=== PATIENT | male | born 1985 | race Caucasian/White ===

== ENCOUNTER 2018-04-14 03:08 | Inpatient (IN) | payer MEDICAID, SELFPAY ==
[2018-04-14] VITALS (28 sets, daily range): BP systolic 91–167; BP diastolic 47–92; PULSE 25–132; RESP 16–99; TEMP 35.9–37.4; O2SAT 95–100; BMI 22.3; BMI 23.3
--- NOTE | 2018-04-14 03:16 | EKG12_ITS ---
Test Reason : NAUSEA Blood Pressure : / mmHG Vent. Rate : 124 BPM Atrial Rate : 124 BPM P-R Int : 162 ms QRS Dur : 080 ms QT Int : 308 ms P-R-T Axes : 063 072 065 degrees QTc Int : 442 ms Sinus tachycardia Otherwise normal ECG Confirmed by PATRICE WALL, BELEN ([id number]), deputy editor in chief CLAIRE JEROME ([id number] on 04/19/2018 3:38:55 PM Referred By: BB Confirmed By:BELEN IBRAHIM MD
--- NOTE | 2018-04-14 03:17 | RAD_ITS ---
STUDY: X-RAY CHEST REASON FOR EXAM: Male, 32 years old. Nausea and vomiting with SOB TECHNIQUE: Single frontal view of the chest. COMPARISON: None. FINDINGS: The lungs are clear and expanded. There is no demonstrated pleural abnormality. Normal size heart. Normal mediastinum and geena. Normal visualized pulmonary arteries. Normal visualized aortic arch and descending thoracic aorta. Normal visualized thoracic spine. Normal visualized ribs, clavicles, and shoulders. There is no demonstrated abnormality of the visualized soft tissue structures of the upper abdomen. RAD/Chest 1 View (Portable) IMPRESSION: Normal x-ray examination of the chest. Electronically Signed: Ashish Aguillon MD at 4:14 EDT Tel , Service support ,
--- NOTE | 2018-04-14 03:19 | ED.VIS.GEN ---
History of Present Illness Chief Complaint: Nausea/Vomiting Informant: Patient Onset: Yesterday Context: Gradual Onset Timing: Continuous Narrative: Patient was feeling malaised yesterday, came home from work and slept all day, has not eaten anything the majority of the day. Started feeling nauseated and then vomiting, followed by gradual onset of bilateral abdominal discomfort going up into his lower central chest, shortness of breath, malaise, polydipsia but not polyuria. He is a type I diabetic has not checked his sugar in about a day. - Past Medical History (1) Diabetes mellitus type 1 Status: Chronic Past Medical History - Allergies and Home Meds Allergies/Adverse Reactions: Allergies Penicillins Adverse Reaction (Verified 04/14/18 03:15) Hives Primary Care Physician: Care Physician,No Primary [Primary Care Provider] - Surgical History: - - Testicle, eyes Review of Systems General: Reports: Chills, Malaise. Denies: Fever Eyes: Denies: Visual changes - bilaterally, Diplopia ENT: Denies: Bilateral ear pain, Sore throat Cardiovascular: Reports: Chest pain. Denies: Palpitations, Heart racing Respiratory: Reports: Dyspnea. Denies: Cough, Sputum, Orthopnea Gastrointestinal: Reports: Abdominal pain, Nausea, Vomiting. Denies: Diarrhea, Constipation, Melena, Hematochezia Genitourinary: Denies: Dysuria, Hematuria, Frequency Musculoskeletal: Denies: Myalgias, Neck pain, Back pain, Swelling, Extremity Pain Skin: Denies: Rash, Abscess Neurological: Denies: Headache, Weakness, Numbness Endocrine: Reports: Polydipsia. Denies: Polyuria, Heat intolerance, Cold intolerance Hematologic: Denies: Easy bruising, Easy bleeding Allergy: Denies: Swelling of the mouth, Swelling of the tongue Physical Exam Vital Signs/Narrative: Vital Signs Temp Pulse Resp BP Pulse Ox 04/14/18 03:09 96.6 F L 130 H 26 H 140/92 H 97 Inital Vital Signs reviewed: Yes General: Well nourished, Well developed, - - uncomfortable, tachypneic, nad Head: Normocephalic, Atraumatic Eyes: Perrl, EOMI ENT: No rhinorrhea, Dry mucous membranes. Negative for: Nasal congestion Neck: Supple, Nontender, No JVD Cardiovascular: Regular rate, Regular rhythm, No murmurs, Tachycardia Respiratory: No distress, CTA bilaterally, Chest nontender Abdomen: Soft, Nondistended, Normal bowel sounds, Tender - diffusely. Negative for: Guarding, Rebound tenderness Back: Nontender, Normal Inspection. Negative for: CVA tenderness Extremities: Nontender, No edema Skin: Normal color, No rash Neurological: Alert, Oriented x3, Cranial nerves II-XII grossly intact, Normal Strength, Normal Sensation, Normal Gait Psychological: - - anxious Diagnostic/Tx/Re-eval Impressions Chest X-Ray 04/14/18 03:17 IMPRESSION: Normal x-ray examination of the chest. Electronically Signed: Ashish Aguillon MD at 4:14 EDT Tel , Service support , 04/14/18 03:17 Chest 1 View (Portable) [RAD] Stat Laboratory Results 04/14/18 04/14/18 04/14/18 03:14 03:25 03:25 WBC 24.1 H RBC 5.74 Hgb 17.6 H Hct 53.5 MCV 93.2 MCH 30.7 MCHC 32.9 RDW 12.8 RDW Differential 43.4 Plt Count 310 MPV 11.2 Immature Gran % (Auto) 0.700 Neut % (Auto) 86.4 H Lymph % (Auto) 7.3 L [place] % (Auto) 5.3 Eos % (Auto) 0.1 Baso % (Auto) 0.2 Absolute Neuts (auto) 20.9 H Absolute Lymphs (auto) 1.76 Total Counted Not Reportable Differential Comment SCANNED Specimen Type Sample Site VBG pH VBG pO2 VBG O2 Sat (Calc) VBG O2 Content VBG Base Excess POC Mix VBG pCO2 Pt Tmp O2 Delivery Device Blood Gas Notified Whom Sodium Potassium Chloride Carbon Dioxide Anion Gap BUN Creatinine Estim Creat Clear Calc Est GFR (MDRD) Af Amer Est GFR (MDRD) Non-Af BUN/Creatinine Ratio Glucose Calcium Total Bilirubin AST ALT Alkaline Phosphatase Total Protein Albumin Globulin Albumin/Globulin Ratio Lipase Urine Color Urine Clarity Urine pH Ur Specific [place] Urine Protein Urine Glucose (UA) Urine Ketones Urine Occult Blood Urine Nitrite Urine Bilirubin Urine Urobilinogen Ur Leukocyte Esterase Urine RBC Urine WBC Ur Squamous Epith Cells Urine Bacteria Urine Mucus Acetone Level SMALL H POC Glucose > 500 H* 04/14/18 04/14/18 04/14/18 03:25 03:25 03:33 WBC RBC Hgb Hct MCV MCH MCHC RDW RDW Differential Plt Count MPV Immature Gran % (Auto) Neut % (Auto) Lymph % (Auto) [place] % (Auto) Eos % (Auto) Baso % (Auto) Absolute Neuts (auto) Absolute Lymphs (auto) Total Counted Differential Comment Specimen Type SHIRA Sample Site OTHER VBG pH 6.92 L* VBG pO2 71 H VBG O2 Sat (Calc) 80 H VBG O2 Content 6 L VBG Base Excess -27 L POC Mix VBG pCO2 Pt Tmp 25.8 L O2 Delivery Device Room Air Blood Gas Notified Whom ED MD Sodium 130 L Cancelled Potassium 5.5 H Cancelled Chloride 91 L Cancelled Carbon Dioxide 8.0 L* Cancelled Anion Gap 31 H Cancelled BUN 24 H Cancelled Creatinine 1.97 H Cancelled Estim Creat Clear Calc 45.76 Cancelled Est GFR (MDRD) Af Amer 51 L Cancelled Est GFR (MDRD) Non-Af 42 L Cancelled BUN/Creatinine Ratio 12.2 Cancelled Glucose 615 H* Cancelled Calcium 9.6 Cancelled Total Bilirubin 0.60 AST 38 H ALT 39 Alkaline Phosphatase 116 Total Protein 9.3 H Albumin 4.5 Globulin 4.8 H Albumin/Globulin Ratio 0.9 Lipase 37 L Urine Color Urine Clarity Urine pH Ur Specific [place] Urine Protein Urine Glucose (UA) Urine Ketones Urine Occult Blood Urine Nitrite Urine Bilirubin Urine Urobilinogen Ur Leukocyte Esterase Urine RBC Urine WBC Ur Squamous Epith Cells Urine Bacteria Urine Mucus Acetone Level POC Glucose 04/14/18 04/14/18 03:47 03:55 WBC RBC Hgb Hct MCV MCH MCHC RDW RDW Differential Plt Count MPV Immature Gran % (Auto) Neut % (Auto) Lymph % (Auto) [place] % (Auto) Eos % (Auto) Baso % (Auto) Absolute Neuts (auto) Absolute Lymphs (auto) Total Counted Differential Comment Specimen Type Sample Site VBG pH VBG pO2 VBG O2 Sat (Calc) VBG O2 Content VBG Base Excess POC Mix VBG pCO2 Pt Tmp O2 Delivery Device Blood Gas Notified Whom Sodium Potassium Chloride Carbon Dioxide Anion Gap BUN Creatinine Estim Creat Clear Calc Est GFR (MDRD) Af Amer Est GFR (MDRD) Non-Af BUN/Creatinine Ratio Glucose Calcium Total Bilirubin AST ALT Alkaline Phosphatase Total Protein Albumin Globulin Albumin/Globulin Ratio Lipase Urine Color Yellow Urine Clarity Clear Urine pH 5.0 Ur Specific [place] 1.025 Urine Protein 30 H Urine Glucose (UA) 1000 H Urine Ketones 150 H Urine Occult Blood 50 H Urine Nitrite Negative Urine Bilirubin Negative Urine Urobilinogen Normal Ur Leukocyte Esterase Negative Urine RBC 0 SEEN Urine WBC 0 SEEN Ur Squamous Epith Cells 0-5 SEEN Urine Bacteria RARE Urine Mucus 0 SEEN Acetone Level POC Glucose > 500 H* - Rhythm Strip Rhythm Strip: Sinus Tach Rate: 125 Ectopy: None - EKG Initial EKG Interpretation: No Acute Injury Pattern, Sinus Tachycardia, - - peaked T waves. no AVB. Prior: No Prior - Medical Decision Making Patient was given morphine, Zofran, IV fluid bolus. He started appearing and feeling better. Labs are consistent with DKA, his venous pH is 6.92. Chest x-ray is unremarkable, urinalysis shows no signs of infection, liver enzymes and lipase are unremarkable. He has a significant leukocytosis which is nonspecific in context of DKA. I do not think he needs a CT of the abdomen/pelvis at this time, vomiting was his initial symptom the abdominal cramping came later. We have 2 peripheral upper extremity IVs on the patient. Discussed w/ Dr. Mejía for ICU admission. Blood pressure is still stable. Procedures Procedure(s): Supervised and physically assisted Dr. Mejía placed right internal jugular central line. No complications. Placed via modified Seldinger technique by ultrasound guidance. In sterile fashion, I tutu back dark red blood from each of the 3 ports and they all flushed easily. I viewed chest x-ray afterwards, which shows good placement. Line is okay for use. Critical care time (excluding procedures): 30-74 minutes - 35 min ED Disposition - Plan for ED Patient: Disposition: Acute Care Hospital [facility] Chief Complaint: Nausea/Vomiting Diagnosis: DKA (diabetic ketoacidoses), KENDRICK (acute kidney injury) Referrals: Care Physician,No Primary [Primary Care Provider] -
[2018-04-14 03:21] LABS: Bedside Glucose > 500 mg/dL (70-110)
--- NOTE | 2018-04-14 03:22 | ED.DCSUM_ITS ---
History of Present Illness Chief Complaint: Nausea/Vomiting Informant: Patient Onset: Yesterday Context: Gradual Onset Timing: Continuous Narrative: Patient was feeling malaised yesterday, came home from work and slept all day, has not eaten anything the majority of the day. Started feeling nauseated and then vomiting, followed by gradual onset of bilateral abdominal discomfort going up into his lower central chest, shortness of breath, malaise, polydipsia but not polyuria. He is a type I diabetic has not checked his sugar in about a day. - Past Medical History (1) Diabetes mellitus type 1 Status: Chronic Past Medical History - Allergies and Home Meds Allergies/Adverse Reactions: Allergies Penicillins Adverse Reaction (Verified 04/14/18 03:15) Hives Primary Care Physician: Care Physician,No Primary [Primary Care Provider] - Surgical History: - - Testicle, eyes Review of Systems General: Reports: Chills, Malaise. Denies: Fever Eyes: Denies: Visual changes - bilaterally, Diplopia ENT: Denies: Bilateral ear pain, Sore throat Cardiovascular: Reports: Chest pain. Denies: Palpitations, Heart racing Respiratory: Reports: Dyspnea. Denies: Cough, Sputum, Orthopnea Gastrointestinal: Reports: Abdominal pain, Nausea, Vomiting. Denies: Diarrhea, Constipation, Melena, Hematochezia Genitourinary: Denies: Dysuria, Hematuria, Frequency Musculoskeletal: Denies: Myalgias, Neck pain, Back pain, Swelling, Extremity Pain Skin: Denies: Rash, Abscess Neurological: Denies: Headache, Weakness, Numbness Endocrine: Reports: Polydipsia. Denies: Polyuria, Heat intolerance, Cold intolerance Hematologic: Denies: Easy bruising, Easy bleeding Allergy: Denies: Swelling of the mouth, Swelling of the tongue Physical Exam Vital Signs/Narrative: Vital Signs Temp Pulse Resp BP Pulse Ox 04/14/18 03:09 96.6 F L 130 H 26 H 140/92 H 97 Inital Vital Signs reviewed: Yes General: Well nourished, Well developed, - - uncomfortable, tachypneic, nad Head: Normocephalic, Atraumatic Eyes: Perrl, EOMI ENT: No rhinorrhea, Dry mucous membranes. Negative for: Nasal congestion Neck: Supple, Nontender, No JVD Cardiovascular: Regular rate, Regular rhythm, No murmurs, Tachycardia Respiratory: No distress, CTA bilaterally, Chest nontender Abdomen: Soft, Nondistended, Normal bowel sounds, Tender - diffusely. Negative for: Guarding, Rebound tenderness Back: Nontender, Normal Inspection. Negative for: CVA tenderness Extremities: Nontender, No edema Skin: Normal color, No rash Neurological: Alert, Oriented x3, Cranial nerves II-XII grossly intact, Normal Strength, Normal Sensation, Normal Gait Psychological: - - anxious Diagnostic/Tx/Re-eval Impressions Chest X-Ray 04/14/18 03:17 IMPRESSION: Normal x-ray examination of the chest. Electronically Signed: Ashish Aguillon MD at 4:14 EDT Tel , Service support , 04/14/18 03:17 Chest 1 View (Portable) [RAD] Stat Laboratory Results 04/14/18 04/14/18 04/14/18 03:14 03:25 03:25 WBC 24.1 H RBC 5.74 Hgb 17.6 H Hct 53.5 MCV 93.2 MCH 30.7 MCHC 32.9 RDW 12.8 RDW Differential 43.4 Plt Count 310 MPV 11.2 Immature Gran % (Auto) 0.700 Neut % (Auto) 86.4 H Lymph % (Auto) 7.3 L [place] % (Auto) 5.3 Eos % (Auto) 0.1 Baso % (Auto) 0.2 Absolute Neuts (auto) 20.9 H Absolute Lymphs (auto) 1.76 Total Counted Not Reportable Differential Comment SCANNED Specimen Type Sample Site VBG pH VBG pO2 VBG O2 Sat (Calc) VBG O2 Content VBG Base Excess POC Mix VBG pCO2 Pt Tmp O2 Delivery Device Blood Gas Notified Whom Sodium Potassium Chloride Carbon Dioxide Anion Gap BUN Creatinine Estim Creat Clear Calc Est GFR (MDRD) Af Amer Est GFR (MDRD) Non-Af BUN/Creatinine Ratio Glucose Calcium Total Bilirubin AST ALT Alkaline Phosphatase Total Protein Albumin Globulin Albumin/Globulin Ratio Lipase Urine Color Urine Clarity Urine pH Ur Specific [place] Urine Protein Urine Glucose (UA) Urine Ketones Urine Occult Blood Urine Nitrite Urine Bilirubin Urine Urobilinogen Ur Leukocyte Esterase Urine RBC Urine WBC Ur Squamous Epith Cells Urine Bacteria Urine Mucus Acetone Level SMALL H POC Glucose > 500 H* 04/14/18 04/14/18 04/14/18 03:25 03:25 03:33 WBC RBC Hgb Hct MCV MCH MCHC RDW RDW Differential Plt Count MPV Immature Gran % (Auto) Neut % (Auto) Lymph % (Auto) [place] % (Auto) Eos % (Auto) Baso % (Auto) Absolute Neuts (auto) Absolute Lymphs (auto) Total Counted Differential Comment Specimen Type SHIRA Sample Site OTHER VBG pH 6.92 L* VBG pO2 71 H VBG O2 Sat (Calc) 80 H VBG O2 Content 6 L VBG Base Excess -27 L POC Mix VBG pCO2 Pt Tmp 25.8 L O2 Delivery Device Room Air Blood Gas Notified Whom ED MD Sodium 130 L Cancelled Potassium 5.5 H Cancelled Chloride 91 L Cancelled Carbon Dioxide 8.0 L* Cancelled Anion Gap 31 H Cancelled BUN 24 H Cancelled Creatinine 1.97 H Cancelled Estim Creat Clear Calc 45.76 Cancelled Est GFR (MDRD) Af Amer 51 L Cancelled Est GFR (MDRD) Non-Af 42 L Cancelled BUN/Creatinine Ratio 12.2 Cancelled Glucose 615 H* Cancelled Calcium 9.6 Cancelled Total Bilirubin 0.60 AST 38 H ALT 39 Alkaline Phosphatase 116 Total Protein 9.3 H Albumin 4.5 Globulin 4.8 H Albumin/Globulin Ratio 0.9 Lipase 37 L Urine Color Urine Clarity Urine pH Ur Specific [place] Urine Protein Urine Glucose (UA) Urine Ketones Urine Occult Blood Urine Nitrite Urine Bilirubin Urine Urobilinogen Ur Leukocyte Esterase Urine RBC Urine WBC Ur Squamous Epith Cells Urine Bacteria Urine Mucus Acetone Level POC Glucose 04/14/18 04/14/18 03:47 03:55 WBC RBC Hgb Hct MCV MCH MCHC RDW RDW Differential Plt Count MPV Immature Gran % (Auto) Neut % (Auto) Lymph % (Auto) [place] % (Auto) Eos % (Auto) Baso % (Auto) Absolute Neuts (auto) Absolute Lymphs (auto) Total Counted Differential Comment Specimen Type Sample Site VBG pH VBG pO2 VBG O2 Sat (Calc) VBG O2 Content VBG Base Excess POC Mix VBG pCO2 Pt Tmp O2 Delivery Device Blood Gas Notified Whom Sodium Potassium Chloride Carbon Dioxide Anion Gap BUN Creatinine Estim Creat Clear Calc Est GFR (MDRD) Af Amer Est GFR (MDRD) Non-Af BUN/Creatinine Ratio Glucose Calcium Total Bilirubin AST ALT Alkaline Phosphatase Total Protein Albumin Globulin Albumin/Globulin Ratio Lipase Urine Color Yellow Urine Clarity Clear Urine pH 5.0 Ur Specific [place] 1.025 Urine Protein 30 H Urine Glucose (UA) 1000 H Urine Ketones 150 H Urine Occult Blood 50 H Urine Nitrite Negative Urine Bilirubin Negative Urine Urobilinogen Normal Ur Leukocyte Esterase Negative Urine RBC 0 SEEN Urine WBC 0 SEEN Ur Squamous Epith Cells 0-5 SEEN Urine Bacteria RARE Urine Mucus 0 SEEN Acetone Level POC Glucose > 500 H* - Rhythm Strip Rhythm Strip: Sinus Tach Rate: 125 Ectopy: None - EKG Initial EKG Interpretation: No Acute Injury Pattern, Sinus Tachycardia, - - peaked T waves. no AVB. Prior: No Prior - Medical Decision Making Patient was given morphine, Zofran, IV fluid bolus. He started appearing and feeling better. Labs are consistent with DKA, his venous pH is 6.92. Chest x- ray is unremarkable, urinalysis shows no signs of infection, liver enzymes and lipase are unremarkable. He has a significant leukocytosis which is nonspecific in context of DKA. I do not think he needs a CT of the abdomen/pelvis at this time, vomiting was his initial symptom the abdominal cramping came later. We have 2 peripheral upper extremity IVs on the patient. Discussed w/ Dr. Mejía for ICU admission. Blood pressure is still stable. Procedures Procedure(s): Supervised and physically assisted Dr. Mejía placed right internal jugular central line. No complications. Placed via modified Seldinger technique by ultrasound guidance. In sterile fashion, I uttu back dark red blood from each of the 3 ports and they all flushed easily. I viewed chest x- ray afterwards, which shows good placement. Line is okay for use. Critical care time (excluding procedures): 30-74 minutes - 35 min ED Disposition - Plan for ED Patient: Disposition: Acute Care [facility] Chief Complaint: Nausea/Vomiting Diagnosis: DKA (diabetic ketoacidoses), KENDRICK (acute kidney injury) Referrals: Care Physician,No Primary [Primary Care Provider] -
[2018-04-14] MEDS: Ondansetron 4 MG/2 ML Vial IV ×3 (03:25→12:49)
[2018-04-14] MEDS: 0.9% Normal Saline 1,000 ML 999 ML IV ×2 (03:25→04:16)
[2018-04-14] MEDS: Morphine 4 MG/ML Syringe IV (03:26)
[2018-04-14 03:40] LABS: Blood Gas Specimen Type VEN; O2 Delivery Device Room Air; SITE OTHER; VBG BASE EXCESS -27 mmol/L (-1.0-3.5); VBG Bicarbonate 5 mmol/L (22-26); VBG Oxygen Content 6 mmol/L (23-33); VBG PO2 71 mmHg (25-40); VBG SO2 80 % (50-70); VBG pCO2 25.8 mmHg (41-51); VBG pH 6.92 (7.32-7.42)
[2018-04-14 03:43] LABS: Absolute Lymphocyte Count 1.76 X10^3/ul (0.83-4.51); Absolute Neutrophil Count 20.9 X10^3/uL (2.0-7.7); Basophil# 0.04 X10^3/uL; Basophil% 0.2 % (0-1); Eosinophil# 0.03 X10^3/uL; Eosinophils% 0.1 % (0-5); Hematocrit 53.5 % (40-54); Hemoglobin 17.6 g/dl (13.0-16.5); Lymphocyte # 1.76 X10^3/ul (4.0); Lymphocyte % 7.3 % (19-41); Mean Corp Hgb Conc 32.9 g/gl (32-36); Mean Corpuscular Hgb 30.7 pg (27.0-32.0); Mean Corpuscular Volume 93.2 fL (80-94); Mean Platelet Vol. 11.2 fl (6.2-12.0); Monocyte# 1.29 X10^3/uL; Monocyte% 5.3 % (0-10); Neutrophil # 20.85 X10^3/uL (2.7-7.7); Neutrophil % 86.4 % (47-70); Platelet Count 310 K/mm3 (150-450); RBC Distribution Width CV 12.8 % (11.6-14.6); RBC Distribution Width SD 43.4 fl (35.1-43.9); Red Blood Count 5.74 M/mm3 (4.6-6.2); White Blood Count 24.1 K/mm3 (4.4-11.0)
[2018-04-14 03:45] LABS: Differential Indicated SCAN CRITERIA MET; POSITIVE COUNT NO; POSITIVE DIFFERENTIAL YES; POSITIVE MORPHOLOGY YES
[2018-04-14 03:57] LABS: Mucous, Urine 0 SEEN /hpf (<or=2+); Red Blood Cells-Urine 0 SEEN /hpf (0-5); White Blood Cells 0 SEEN /hpf (0-5)
[2018-04-14 04:01] LABS: Bedside Glucose > 500 mg/dL (70-110)
[2018-04-14 04:02] LABS: Differential Comment SCANNED
[2018-04-14 04:04] LABS: Color, Urine Yellow (Yellow); Glucose, Dipstick 1000 mg/dl (Normal); Leukocyte Esterase-Dipstick Negative /ul (Negative); Nitrite-Dipstick Negative (Negative); Occult Blood-Urine 50 /ul (Negative); Protein-Dipstick 30 mg/dl (Negative); Specific Gravity, Urine 1.025 (1.002-1.030); Urine Bilirubin Dipstick Negative (Negative); Urine Clarity Clear (Clear); Urine Urobilinogen Normal (Normal)
[2018-04-14 04:11] LABS: ALB/GLOB Ratio 0.9 RATIO (0.9-2.4); AST(SGOT) 38 U/L (15-37); Alanine Aminotransfer ALT/SGPT 39 U/L (16-61); Albumin, Serum 4.5 g/dL (3.2-5.0); Alkaline Phosphatase 116 U/L (45-117); Anion Gap 31 (5-15); BUN 24 mg/dL (7-18); BUN/Creat Ratio 12.2 RATIO (10-20); Calcium,Total 9.6 mg/dL (8.5-10.1); Chloride 91 mmol/L (98-107); Creatinine, Serum 1.97 mg/dL (0.70-1.30); EST Glomerular Filtration Rate 42 mL/min (>60); Est Glom Filt Rate - Afr Amer 51 mL/min (>60); Estimated Creatinine Clearance 45.76 ml/min; Globulin 4.8 g/dL (2.2-4.2); Glucose 615 mg/dL (74-106); Lipase 37 U/L (73-393); Potassium 5.5 mmol/L (3.5-5.1); Protein, Total 9.3 g/dL (6.4-8.2); Sodium Level 130 mmol/L (136-145)
--- NOTE | 2018-04-14 04:18 | NURSING ---
lab called to report co2 of 8 and glucose 615.
[2018-04-14 04:19] LABS: Bacteria RARE /hpf (None Seen); Squamous Epithelial Cells - UA 0-5 SEEN /hpf (0-5)
--- NOTE | 2018-04-14 04:21 | PCM.HP.STD ---
Problem List (1) Diabetes mellitus type 1 Status: Chronic (2) DKA (diabetic ketoacidoses) Status: Acute (3) KENDRICK (acute kidney injury) Status: Acute History of Present Illness Date of Admission: 04/14/18 Chief Complaint: Nausea and vomiting X 1 day. The patient is a 32 year old M with a significant history of diabetes type diagnosed about 5 years ago who presents with nausea and vomiting X 1 day. Associated with the symptoms is abdominal pain, chest pain; back pain; and diarrhea. He rates the pain in these multiple locations at 8 out of 10 and he described the pain as aching and sharp. His symptoms has progressively worsened. Initially he thought he was having the flu and took wsch-lwz-wkukrzy flu medication without any real relief. Reportedly he missed one dose of long-acting insulin and one dose short acting insulin before his symptoms started. At emergency department was found to have leukocytosis. His VBG showed a pH of 6.92. His bicarb was 8.0 and he had an anion gap of 31. Glucose on BMP was 615 and he was found to have elevated acetone level. Past Medical History Past Medical History (Chronic Problems): Chronic Problems Diabetes mellitus type 1 (Chronic) Allergies Penicillins Adverse Reaction (Verified 04/14/18 03:15) Hives Home Medications: Ambulatory Orders Medication Instructions Recorded Insulin Aspart Protam & Aspart 0 units SQ TID 04/14/18 [Novolog Mix 70-30 Vial] Insulin Glargine,Hum.rec.anlog 20 unit SQ DAILY 04/14/18 [Basaglar Kwikpen U-100] Lisinopril [Zestril] 10 mg PO DAILY 04/14/18 Surgical History: - - Testicle, eyes Lives: Spouse/ Significant Other Smoking Status: Current every day smoker Tobacco Use: Non-smoker - *Family History Maternal History Items: Diabetes - Maternal aunt Review of Systems Constitutional: Reports: Anorexia, Malaise HEENT: Denies: Head Aches, Sinus Congestion, Sinus Drainage Cardiovascular: Reports: Chest Pain Respiratory: Reports: Shortness of Breath Gastrointestinal: Reports: Abdominal Pain, Diarrhea Genitourinary: Denies: Dysuria Musculoskeletal: Reports: Back Pain. Denies: Joint Pain, Joint Tenderness Skin: Denies: Rash, Wounds Neurological: Denies: Numbness, Tingling, Focal weakness Psychiatric: Denies: Anxiety, Depression, Homicidal Ideations, Suicidal Ideations Endocrine: Reports: Polydipsia. Denies: Polyuria Hematologic/ Lymphatic: Denies: Easy Bruising, Easy Bleeding VTE Information - Inpt Only VTE Present on Admission: No VTE Mechan Device Prophylaxis: None VTE Pharm Prophylaxis ordered?: No Reason prophylaxis not ordered:: Treatment Not Indicated - Low risk Patient Problems: Active and Suspected Problems DKA (diabetic ketoacidoses) (Acute) KENDRICK (acute kidney injury) (Acute) - Physical Exam General: Alert, Oriented x3, Cooperative, - - Patient complaining of pain in abdomen; chest; and back. HEENT: Atraumatic, PERRLA, EOMI, Normocephalic Neck: Supple, No JVD, Negative Carotid Bruits Lungs: Clear to auscultation, Normal air movement, Tachypneic Cardiovascular: Normal S1, Normal S2, Tachycardic Abdomen: Bowel Sounds Present Extremities: No edema, Capillary Refill Less than 3 Seconds Skin: No rashes, No breakdown Musculoskeletal: No Tenderness to Palpation of Joints or Extremities Lymphatic: No Cervical, Supraclavicular, or Inguinal Adenopathy Neurological: Cranial nerves II-XII grossly intact, Neuro grossly intact Psych/Mental Status: Normal Affect Vital Signs Temp Pulse Resp BP Pulse Ox 96.6 F L 120 H 27 H 136/71 H 100 04/14/18 03:09 04/14/18 03:43 04/14/18 03:43 04/14/18 03:43 04/14/18 03:43 Oxygen Delivery Method Room Air Weight: 59 kg Body Mass Index (BMI) 22.3 Finger Stick Blood Glucose 589 Laboratory Tests Past 24 Hrs 04/14/18 04/14/18 04/14/18 03:25 03:25 03:25 WBC 24.1 H RBC 5.74 Hgb 17.6 H Hct 53.5 MCV 93.2 MCH 30.7 MCHC 32.9 RDW 12.8 RDW Differential 43.4 Plt Count 310 MPV 11.2 Immature Gran % (Auto) 0.700 Neut % (Auto) 86.4 H Lymph % (Auto) 7.3 L Angelina % (Auto) 5.3 Eos % (Auto) 0.1 Baso % (Auto) 0.2 Absolute Neuts (auto) 20.9 H Absolute Lymphs (auto) 1.76 Total Counted Not Reportable Differential Comment SCANNED Specimen Type Sample Site VBG pH VBG pO2 VBG O2 Sat (Calc) VBG O2 Content VBG Base Excess POC Mix VBG pCO2 Pt Tmp O2 Delivery Device Blood Gas Notified Whom Sodium 130 L Potassium 5.5 H Chloride 91 L Carbon Dioxide 8.0 L* Anion Gap 31 H BUN 24 H Creatinine 1.97 H Estim Creat Clear Calc 45.76 Est GFR (MDRD) Af Amer 51 L Est GFR (MDRD) Non-Af 42 L BUN/Creatinine Ratio 12.2 Glucose 615 H* Calcium 9.6 Total Bilirubin 0.60 AST 38 H ALT 39 Alkaline Phosphatase 116 Total Protein 9.3 H Albumin 4.5 Globulin 4.8 H Albumin/Globulin Ratio 0.9 Lipase 37 L Urine Color Urine Clarity Urine pH Ur Specific [place] Urine Protein Urine Glucose (UA) Urine Ketones Urine Occult Blood Urine Nitrite Urine Bilirubin Urine Urobilinogen Ur Leukocyte Esterase Urine RBC Urine WBC Ur Squamous Epith Cells Urine Bacteria Urine Mucus Acetone Level SMALL H 04/14/18 04/14/18 04/14/18 03:25 03:33 03:47 WBC RBC Hgb Hct MCV MCH MCHC RDW RDW Differential Plt Count MPV Immature Gran % (Auto) Neut % (Auto) Lymph % (Auto) Angelina % (Auto) Eos % (Auto) Baso % (Auto) Absolute Neuts (auto) Absolute Lymphs (auto) Total Counted Differential Comment Specimen Type SHIRA Sample Site OTHER VBG pH 6.92 L* VBG pO2 71 H VBG O2 Sat (Calc) 80 H VBG O2 Content 6 L VBG Base Excess -27 L POC Mix VBG pCO2 Pt Tmp 25.8 L O2 Delivery Device Room Air Blood Gas Notified Whom ED Sodium Cancelled Potassium Cancelled Chloride Cancelled Carbon Dioxide Cancelled Anion Gap Cancelled BUN Cancelled Creatinine Cancelled Estim Creat Clear Calc Cancelled Est GFR (MDRD) Af Amer Cancelled Est GFR (MDRD) Non-Af Cancelled BUN/Creatinine Ratio Cancelled Glucose Cancelled Calcium Cancelled Total Bilirubin AST ALT Alkaline Phosphatase Total Protein Albumin Globulin Albumin/Globulin Ratio Lipase Urine Color Pending Urine Clarity Pending Urine pH Pending Ur Specific Morehouse Pending Urine Protein Pending Urine Glucose (UA) Pending Urine Ketones Pending Urine Occult Blood Pending Urine Nitrite Pending Urine Bilirubin Pending Urine Urobilinogen Pending Ur Leukocyte Esterase Pending Urine RBC Pending Urine WBC Pending Ur Squamous Epith Cells Pending Urine Bacteria Pending Urine Mucus Pending Acetone Level POC Glucose 04/14/18 04/14/18 03:55 03:14 POC Glucose > 500 H* > 500 H* Assessment/Plan All Active Problems DKA (diabetic ketoacidoses) (Acute) KENDRICK (acute kidney injury) (Acute) The patient is a 32 year old M with a significant history of diabetes type diagnosed about 5 years ago who presents with nausea; vomiting; polydipsia; pain in multiple locations and found to be have elevated acetone; severe anion gap metabolic acidosis; and severe hyperglycemia concerning for DKA. X 1 day. Associated with the symptoms is abdominal pain, chest pain and back pain. He rates the pain in these multiple locations at 8 out of 10 and he described the pain as aching and sharp. Initially he thought he was having the flu and took [id number]-[id number] flu medication without any real relief. Reportedly he missed one dose of long-acting insulin and one dose short acting insulin before his symptoms started. At emergency department was found to have leukocytosis. His VBG showed a pH of 6.92. His bicarb was 8.0 and he had an anion gap of 31. Glucose on BMP was 615 and he was found to have elevated acetone level. DKA The patient reports missing insulin dose at home His DKA could be secondary to insufficient insulin to meet his metabolic demands; stress,infection or other. Serum glucose 615 admission acetone level small Anion gap of 31. Delta GAP is 19. Delta GAP plus current bicarbonate (8) = 27; implying no other metabolic acid base imbalance. Sodium 130, . Corrected sodium 138 Noted to have Kussmaul respiration Insulin drip started from emergency department; continue. Insulin drip per ICU protocol. D5 half-normal saline with 20 of K started at emergency department; continue Completed IV bolus of normal saline Because his potassium is normal and does not look severely hypovolemic we will continue IV fluids with half-normal saline going at 250 mL's per hour. BMP every 4 hours to calculate anion gap. If potassium is less than 5.3 on BMP consider appropriate potassium supplementation per DKA protocol. N.p.o. for now Admitted to ICU ICU electrolyte protocol ordered A1c ordered. Morphine and Zofran as needed. His venous pH was 6.92. Bicarbonate was not started at this time since pH is more than 6.9. If patient does not improve consider ABG and bicarbonate administration. Cement Sprayer Helper consult. KENDRICK On admission creatinine is 1.92 No other creatinine on file. Because of patient age this is likely KENDRICK, prerenal secondary to hypovolemia from DKA. IV hydration as above Trend BMP Avoid nephrotoxic's. Diabetes type 1 Treatment of DKA as above A1c ordered Patient takes lisinopril for renal protective effects but without any established diagnosis of of high blood pressure. Lisinopril on hold due to KENDRICK. Elevated blood pressure without diagnosis of hypertension At Admission blood pressure was uncontrolled This could be likely to pain; or undiagnosed hypertension in the setting of patient on ALIDA inhibitor. Hydralazine as needed for systolic blood pressure more than 160. Chest pain Likely secondary to DKA Troponin ordered. Morphine prn Hyperkalemia Likely secondary to insulin deficiency Treatment as in DKA. Abdominal pain and back pain Likely secondary to DKA. Pain medication as above. Leukocytosis WBC on admission was 24.1 with neutrophilic predominance. Likely reactive secondary to reactive DKA Chest x-ray unremarkable Urinalysis unremarkable for infection Respiratory pathogen panel ordered. Elevated liver enzymes Mild elevation in AST Trend DVT prophylaxis Low risk Ambulation. Code Visit Inpatient E&M: 69913 Init Hosp L3
[2018-04-14 04:23] LABS: Ketone-Dipstick 150 mg/dl (Negative)
--- NOTE | 2018-04-14 04:23 | NURSING ---
dr marcial notified of ketones in urine
[2018-04-14 04:41] LABS: Bedside Glucose > 500 mg/dL (70-110)
--- NOTE | 2018-04-14 05:32 | RAD_ITS ---
STUDY: X-RAY CHEST REASON FOR EXAM: Male, 32 years old. Line placement TECHNIQUE: Single frontal view of the chest. COMPARISON: 04/14/2018 FINDINGS: Right central catheter tip in SVC without pneumothorax. The lungs are clear and expanded. There is no demonstrated pleural abnormality. Normal size heart. Normal mediastinum and geena. Normal visualized pulmonary arteries. Normal visualized aortic arch and descending thoracic aorta. Normal visualized thoracic spine. Normal visualized ribs, clavicles, and shoulders. There is no demonstrated abnormality of the visualized soft tissue structures of the upper abdomen. RAD/CXR for Line Placement IMPRESSION: Right central catheter tip in SVC without pneumothorax. Electronically Signed: Ashish Aguillon MD at 6:22 EDT Tel , Service support ,
[2018-04-14 05:46] LABS: Bedside Glucose > 500 mg/dL (70-110)
--- NOTE | 2018-04-14 05:56 | ED.RN ---
dr. arcos verified central line placement, he states okay for use.
--- NOTE | 2018-04-14 05:57 | PCM.PN.BLA ---
Progress Note Procedure: [R IJ CV catheter Insertion] Informed consent: The procedure plan, including medications, benefits and potential complications were discussed with []. The potential need to secondary procedures such as chest tube placement to evacuate a pneumothorax, was also conveyed. The patient was appropriately placed to maximize comfort. The site was cleansed and allowed to dry prior to draping the patient. The skin overlying the access site was infiltrated with lidocaine. The vein was successfully cannulated and a guidewire was inserted. The needle was removed and the vein dilator was advanced over the guidewire. The dilator was removed and a catheter was threaded over the guidewire while maintaining control over the guidewire. The guidewire was removed and each port was sequentially aspirated and then flushed with saline. The catheter was sutured in place and the site was dressed using sterile technique. The patient tolerated the procedure well. A chest x-ray was obtained and the Right central catheter tip was found to be in SVC without pneumothorax. Code Visit Procedures: [id number] Insert Non-tunnel CV Cath
[2018-04-14 06:19] LABS: CPK Total, Creatine Kinase 181 U/L (39-308)
[2018-04-14] MEDS: 0.45% Normal Saline 1,000 ML 250 ML IV ×2 (06:45→10:00)
[2018-04-14] MEDS: Morphine 2 MG/ML Syringe IV ×2 (06:50→12:38)
[2018-04-14 07:00] LABS: Magnesium 2.1 mg/dL (1.6-2.6)
[2018-04-14 07:05] LABS: Anion Gap 25 (5-15); BUN 21 mg/dL (7-18); BUN/Creat Ratio 13.4 RATIO (10-20); Calcium,Total 7.7 mg/dL (8.5-10.1); Chloride 101 mmol/L (98-107); Creatinine, Serum 1.57 mg/dL (0.70-1.30); EST Glomerular Filtration Rate 55 mL/min (>60); Est Glom Filt Rate - Afr Amer 67 mL/min (>60); Estimated Creatinine Clearance 57.61 ml/min; Glucose 447 mg/dL (74-106); Phosphorus 5.1 mg/dL (2.5-4.9); Potassium 5.2 mmol/L (3.5-5.1); Sodium Level 132 mmol/L (136-145)
[2018-04-14 07:37] LABS: Urine Sodium 62 mmol/L (Not Establ.)
[2018-04-14 07:40] LABS: Osmolality, Serum 314 mOsm/KG (275-295)
[2018-04-14 08:41] LABS: Hemoglobin A1c 8.9 % (4.2-6.3)
[2018-04-14 09:01] LABS: Bedside Glucose 375 mg/dL (70-110)
[2018-04-14 09:01] LABS: Bedside Glucose 466 mg/dL (70-110)
[2018-04-14] MEDS: 0.9% NaCl Peripheral Flush Adult/Peds IV ×5 (09:11→18:08)
[2018-04-14 09:20] LABS: Bedside Glucose 320 mg/dL (70-110)
[2018-04-14 10:21] LABS: Bedside Glucose 265 mg/dL (70-110)
[2018-04-14 10:41] LABS: Anion Gap 18 (5-15); BUN 18 mg/dL (7-18); BUN/Creat Ratio 13.5 RATIO (10-20); Calcium,Total 7.6 mg/dL (8.5-10.1); Chloride 104 mmol/L (98-107); Creatinine, Serum 1.33 mg/dL (0.70-1.30); EST Glomerular Filtration Rate 67 mL/min (>60); Est Glom Filt Rate - Afr Amer 81 mL/min (>60); Glucose 265 mg/dL (74-106); Potassium 4.7 mmol/L (3.5-5.1); Sodium Level 132 mmol/L (136-145)
[2018-04-14 11:21] LABS: Bedside Glucose 234 mg/dL (70-110)
[2018-04-14] MEDS: BENZOCAINE/MENTHOL 1 LOZENGE MUCOUS MEM ×2 (12:38→18:08)
[2018-04-14 12:45] LABS: Bedside Glucose 301 mg/dL (70-110)
[2018-04-14 13:01] LABS: Bedside Glucose 262 mg/dL (70-110)
[2018-04-14 14:21] LABS: Bedside Glucose 261 mg/dL (70-110)
[2018-04-14 14:29] LABS: Anion Gap 11 (5-15); BUN 14 mg/dL (7-18); BUN/Creat Ratio 10.9 RATIO (10-20); Calcium,Total 7.8 mg/dL (8.5-10.1); Chloride 106 mmol/L (98-107); Creatinine, Serum 1.29 mg/dL (0.70-1.30); EST Glomerular Filtration Rate 69 mL/min (>60); Est Glom Filt Rate - Afr Amer 84 mL/min (>60); Estimated Creatinine Clearance 70.11 ml/min; Glucose 268 mg/dL (74-106); Potassium 4.5 mmol/L (3.5-5.1); Sodium Level 132 mmol/L (136-145)
[2018-04-14 15:26] LABS: Bedside Glucose 243 mg/dL (70-110)
[2018-04-14 17:06] LABS: Bedside Glucose 209 mg/dL (70-110)
[2018-04-14] MEDS: oxyCODONE 5 MG Tablet PO ×2 (18:08→22:34)
[2018-04-14 18:26] LABS: Anion Gap 8 (5-15); BUN 12 mg/dL (7-18); BUN/Creat Ratio 9.8 RATIO (10-20); Chloride 107 mmol/L (98-107); Creatinine, Serum 1.22 mg/dL (0.70-1.30); EST Glomerular Filtration Rate 74 mL/min (>60); Est Glom Filt Rate - Afr Amer 89 mL/min (>60); Estimated Creatinine Clearance 74.13 ml/min; Glucose 211 mg/dL (74-106); Sodium Level 135 mmol/L (136-145)
[2018-04-14] MEDS: Insulin Lispro 100 UNIT/ML INSULN.PEN SC (22:38)
[2018-04-14 22:46] LABS: Bedside Glucose 398 mg/dL (70-110)
[2018-04-15 02:20] VITALS: BP 95/51; PULSE 95; RESP 18; TEMP 36.9; O2SAT 97
[2018-04-15 05:24] LABS: Absolute Lymphocyte Count 2.71 X10^3/ul (0.83-4.51); Absolute Neutrophil Count 9.3 X10^3/uL (2.0-7.7); Basophil# 0.03 X10^3/uL; Basophil% 0.2 % (0-1); Eosinophil# 0.14 X10^3/uL; Eosinophils% 1.1 % (0-5); Hematocrit 39.3 % (40-54); Lymphocyte # 2.71 X10^3/ul (4.0); Lymphocyte % 20.6 % (19-41); Mean Corp Hgb Conc 35.6 g/gl (32-36); Mean Corpuscular Hgb 30.4 pg (27.0-32.0); Mean Corpuscular Volume 85.2 fL (80-94); Mean Platelet Vol. 9.7 fl (6.2-12.0); Monocyte# 1.02 X10^3/uL; Monocyte% 7.7 % (0-10); Neutrophil # 9.25 X10^3/uL (2.7-7.7); Neutrophil % 70.2 % (47-70); Platelet Count 226 K/mm3 (150-450); RBC Distribution Width CV 12.6 % (11.6-14.6); RBC Distribution Width SD 38.7 fl (35.1-43.9); Red Blood Count 4.61 M/mm3 (4.6-6.2); White Blood Count 13.2 K/mm3 (4.4-11.0)
[2018-04-15 05:36] LABS: POSITIVE COUNT NO; POSITIVE DIFFERENTIAL NO; POSITIVE MORPHOLOGY NO
[2018-04-15 05:39] LABS: AST(SGOT) 20 U/L (15-37); Alanine Aminotransfer ALT/SGPT 30 U/L (16-61); Albumin, Serum 3.1 g/dL (3.2-5.0); Alkaline Phosphatase 67 U/L (45-117); Globulin 3.4 g/dL (2.2-4.2); Phosphorus 1.9 mg/dL (2.5-4.9); Protein, Total 6.5 g/dL (6.4-8.2)
[2018-04-15 05:47] LABS: Anion Gap 10 (5-15); BUN 11 mg/dL (7-18); BUN/Creat Ratio 11.1 RATIO (10-20); Calcium,Total 8.5 mg/dL (8.5-10.1); Chloride 105 mmol/L (98-107); Creatinine, Serum 0.99 mg/dL (0.70-1.30); EST Glomerular Filtration Rate 94 mL/min (>60); Est Glom Filt Rate - Afr Amer 113 mL/min (>60); Estimated Creatinine Clearance 91.36 ml/min; Glucose 181 mg/dL (74-106); Sodium Level 138 mmol/L (136-145)
[2018-04-15 07:05] LABS: Bedside Glucose 186 mg/dL (70-110)
[2018-04-15] MEDS: oxyCODONE 5 MG Tablet PO (07:18)
[2018-04-15] MEDS: Insulin Lispro 100 UNIT/ML INSULN.PEN SC ×2 (07:19→11:24)
[2018-04-15 07:22] VITALS: BP 100/65; PULSE 95; RESP 18; TEMP 37.2; O2SAT 97
[2018-04-15 07:23] VITALS: O2SAT 96
--- NOTE | 2018-04-15 07:49 | DCINST_ITS ---
- Discharge Diagnoses Current Active Problems: Current Active and Chronic Problems DKA (diabetic ketoacidoses) (Acute) KENDRICK (acute kidney injury) (Acute) You will use the following diet at home:: Calorie/Carbohydrate Controlled (specify 1200, 1400, etc) Your food should be the consistency of: Regular Your liquids should be the consistency of: Regular/Thin Discharge Activity: Return to Normal Activity, No Restrictions Call your doctor if you observe: Fever of 101 or Higher, Numbness or Tingling, Shortness of breath, Chest pain, Increased palpitations (irregular heartbeat) Allergies/Adverse Reactions: Allergies Penicillins Adverse Reaction (Verified 04/14/18 03:15) Hives Medications to take at Discharge Insulin Glargine,Hum.rec.anlog [Basaglar Kwikpen U-100] 20 unit SQ DAILY 04/14/18 Lisinopril [Zestril] 10 mg PO DAILY 04/14/18 Insulin Aspart Protam & Aspart [Novolog Mix 70-30 Vial] 10 units SQ TID #0 04/15/18 Primary Care Physician: Care Physician,No Primary [Primary Care Provider] - Please follow up with your Primary Care Physician in: Please find a PCP [facility] Test Results: Test results from this visit will be discussed in further detail at your follow- up appointment, if applicable.
[2018-04-15] MEDS: BENZOCAINE/MENTHOL 1 LOZENGE MUCOUS MEM (08:44)
--- NOTE | 2018-04-15 08:50 | DS.PCM_ITS ---
Discharge Date and Diagnosis - Problem List Patient Problems: Active and Suspected Problems DKA (diabetic ketoacidoses) (Acute) KENDRICK (acute kidney injury) (Acute) Date of Admission: 04/14/18 Date of Discharge: 04/15/18 - Primary Discharge Diagnosis Active and Suspected Problems DKA (diabetic ketoacidoses) (Acute) KENDRICK (acute kidney injury) (Acute) - Secondary Discharge Diagnosis Chronic Problems Diabetes mellitus type 1 (Chronic) Hospital Course and Treatment Imaging Results: None Consults: None Operations: None Procedures: Central line placement Summary of Care Provided: HPI: The patient is a 32 year old M with a significant history of diabetes type diagnosed about 5 years ago who presents with nausea and vomiting X 1 day. Associated with the symptoms is abdominal pain, chest pain; back pain; and diarr hea. He rates the pain in these multiple locations at 8 out of 10 and he described the pain as aching and sharp. His symptoms has progressively worsened. Initially he thought he was having the flu and took cbod-dyv-kdtezez flu medication without any real relief. Reportedly he missed one dose of long-acting insulin and one dose short acting insulin before his symptoms started. At emergency department was found to have leukocytosis. His VBG showed a pH of 6.92. His bicarb was 8.0 and he had an anion gap of 31. Glucose on BMP was 615 and he was found to have elevated acetone level. Vital Signs - 24 hr Temp Pulse Resp BP BP Pulse Ox 04/15/18 07:23 96 04/15/18 07:22 98.9 F 95 18 100/65 97 04/15/18 02:20 98.5 F 95 18 95/51 L 97 04/14/18 22:00 104 H 24 H 102/52 L 96 04/14/18 21:32 104 H 04/14/18 21:00 99.4 F H 104 H 20 H 116/50 L 95 04/14/18 20:00 107 H 16 127/77 H 97 04/14/18 19:00 105 H 20 H 113/60 99 04/14/18 18:00 97 18 109/58 L 97 04/14/18 17:00 99 22 H 120/53 L 97 04/14/18 16:00 99.1 F 96 18 107/62 98 04/14/18 15:02 100 04/14/18 15:00 99 17 105/49 L 97 04/14/18 14:00 101 H 17 102/51 L 98 04/14/18 13:00 103 H 16 113/56 L 98 04/14/18 12:20 99.1 F 107 H 17 91/47 L 100 04/14/18 11:07 102 H 04/14/18 11:00 106 H 17 167/68 H 99 04/14/18 10:00 104 H 22 H 116/68 99 04/14/18 09:00 118 H 20 H 167/68 H 99 General: Alert, Oriented x3, Cooperative, No apparent distress HEENT: Atraumatic, PERRLA, EOMI, Normocephalic Oral: Moist Mucosa Neck: Supple, No JVD Lungs: Clear to auscultation, Normal air movement, No rhonchi, No wheeze, No rales Cardiovascular: Regular rate, Regular Rhythm, Normal S1, Normal S2, No murmurs Abdomen: Soft, Non Tender, Non-Distended, No Hepato-splenomegaly Extremities: No edema, Capillary Refill Less than 3 Seconds Skin: No rashes, No breakdown Psych/Mental Status: Normal Affect, Appropriate Hospital Course: 1. Type 1 DM/DKA/Hyperkalemia - He just moved to the area and does not have a PCP yet. He is usually well controlled with his blood sugars on his home insulin regimen, but he was recently working a lot and would not eat multiple meals a day and on occasion would forget to take his long acting insulin. He was admitted with DKA, demonstrated by hyperglycemia, acidosis, ketonuria, and a slightly elevated acetone. He was started on the DKA protocol with an insulin drip and IVF, his anion gap closed and his hyperkalemia resolved by day of discharge and he was feeling much better. He was discharged on his home insulin regimen as he states that this has worked for him in the past and the last time he had an episode of DKA was 5 years ago when he was first diagnosed. 2. URI - He was c/o runny nose, sneezing and some sinus pain, a respiratory panel was obtained which was positive for rhinovirus. Symptomatic treatment as an outpatient was advised. Discharge Activity: Return to Normal Activity, No Restrictions Call your doctor if you observe: Fever of 101 or Higher, Numbness or Tingling, Shortness of breath, Chest pain, Increased palpitations (irregular heartbeat) Home Medications: Medications to take at Discharge Insulin Glargine,Hum.rec.anlog [Basaglar Kwikpen U-100] 20 unit SQ DAILY 04/14/18 Lisinopril [Zestril] 10 mg PO DAILY 04/14/18 Insulin Aspart Protam & Aspart [Novolog Mix 70-30 Vial] 10 units SQ TID #0 04/15/18 Primary Care Physician: Care Physician,No Primary [Primary Care Provider] - Please follow up with your Primary Care Physician in: Please find a PCP [facility] Disposition: Home Minutes spent on discharge:: 35 Patient Condition:: Good Medical Necessity - Tobacco Use Smoking Status: Current every day smoker Tobacco Use: Non-smoker Meaningful Use Info Meaningful Use Diagnoses (Choose all that apply): None applicable Code Visit Inpatient E&M: 93198 Disch Hosp
[2018-04-15 11:26] VITALS: BP 112/72; PULSE 98; RESP 18; TEMP 36.8; O2SAT 95
[2018-04-15 11:35] LABS: Bedside Glucose 409 mg/dL (70-110)
== END 2018-04-15 13:48 | disposition home or self-care (01) | DRG 295 ==
LOC: ED 04:27 → ICU 04:35
PROVIDERS: Internal Medicine Critical Care Medicine; Admitting Provider Hospitalist; Emergency Provider Emergency Medicine; Visit Provider Family Medicine
DX: E10.10 Type 1 diabetes mellitus with ketoacidosis without coma (principal); N17.9 Acute kidney failure, unspecified; E87.5 Hyperkalemia; Z79.4 Long term (current) use of insulin; J06.9 Acute upper respiratory infection, unspecified; B34.8 Other viral infections of unspecified site; Z23 Encounter for immunization; F17.200 Nicotine dependence, unspecified, uncomplicated
CPT/HCPCS: 36556; 71045; 80048; 80053; 80076; 81001; 82009; 82550; 82570; 82803; 82962; 83036; 83690; 83735; 83930; 84100; 84300; 84484; 85025; 87633; 93005; 97802; 99251; 99285; J7030; J7050; 90686; A4216; C1751; G0463; J2405

== ENCOUNTER 2019-02-07 09:07 | Emergency (ER) | payer MEDICAID, SELFPAY ==
[2019-02-07 09:08] VITALS: BP 138/75; PULSE 109; RESP 16; TEMP 36.6; O2SAT 97; BMI 22.7
--- NOTE | 2019-02-07 09:36 | ED.DCSUM_ITS ---
- ER Visit Summary Date of Service: 02/07/19 Chief Complaint: Left ankle soreness History of Present Illness: The patient is a 33 M who presents with soreness to his left ankle that has been getting worse over the past 3 days. Patient states his boot and sock rub against this area. Patient describes the pain as sharp. Patient denies any paresthesias or weakness. Patient denies any specific trauma or injury. Patient states nothing makes it better or worse. Patient denies any fevers or chills. Patient denies any discharge or drainage. Patient denies any paresthesias or weakness. Patient is diabetic. Physical Examination: Vital signs are stable. Patient is afebrile. Patient is in no acute distress. Skin is warm and dry. There is a superficial ulceration over the lateral aspect of the left ankle just proximal to the lateral malleolus. There is some surrounding erythema. There is no discharge or drainage. There is tenderness to palpation over this area. There is no bony crepitance or step-off. Pedal pulses are equal bilaterally. Sensation was intact to light touch in all digits. There is no calf tenderness. Emergency Department Course and Treatment: Bacitracin dressing was applied to the area. Patient was given a prescription for clindamycin she is allergic to penicillin. Patient was instructed to take Tylenol or ibuprofen as needed for pain. Patient was instructed to follow-up with the Stephanie Sanchez in clinic as scheduled. Patient understood and was agreeable with the plan. All questions were answered. Disposition: Discharge home Impression: Infected ulcer left leg This note was generated with [employer] dictation software. It may contain incorrect words, spelling, and punctuation that were not noted in review of the chart prior to signing ED Disposition - Plan for ED Patient: Disposition: Home or Assisted Living Diagnosis: Infected stasis ulcer of left lower extremity Instructions: Cellulitis Prescriptions: Clindamycin [Cleocin] 300 mg PO 4X/DAY #40 cap Prescription Printed Referrals: Care Physician,No Primary [Primary Care Provider] - Stephanie Sanchez [NON-STAFF] - Keep Inderjit appointment
[2019-02-07] MEDS: Ibuprofen 400 MG Tablet 800 MG PO (09:48)
[2019-02-07] MEDS: Clindamycin HCl 150 MG Capsule 300 MG PO (09:49)
== END 2019-02-07 09:56 | disposition home or self-care (01) ==
LOC: ED 09:56
PROVIDERS: Emergency Provider Emergency Medicine
DX: I83.023 Varicose veins of left lower extremity with ulcer of ankle (principal); L97.321 Non-pressure chronic ulcer of left ankle limited to breakdown of skin; E11.9 Type 2 diabetes mellitus without complications; Z72.0 Tobacco use; Z79.4 Long term (current) use of insulin; Z79.899 Other long term (current) drug therapy; Z88.0 Allergy status to penicillin
CPT/HCPCS: 99283

== ENCOUNTER 2019-02-14 08:08 | Emergency (ER) | payer MEDICAID, SELFPAY ==
[2019-02-14 08:09] VITALS: BP 108/75; PULSE 95; RESP 16; TEMP 36.3; O2SAT 97; BMI 23.3
--- NOTE | 2019-02-14 08:24 | ED.VISSUMM ---
- ER Visit Summary Date of Service: 02/14/19 Chief Complaint: Shoulder injury and migraine History of Present Illness: The patient is a 33 M who tells me that yesterday he was carrying a dresser. He tells me that the weight shifted felt: The right shoulder. Since that time he has been doing conservative measures such as heat and ice and it has not gotten any better. He notes painful range of motion and he attempted to go to work today but could not. He also tells me that he has a generalized headache that he calls a migraine. Reports is been present for 2 weeks. He states a couple days ago it got worse. He notes some light sensitivity and nausea. She denies any neurologic deficits. He was seen in the emergency department about 1 week ago for skin irritation from his boot. He did not mention the headache at that time stating that it was very mild. He is supposed to be seen and we will start him in clinic in 4 days to establish care. He is a type I diabetic. Physical Examination: Afebrile vital signs stable Gen: Well-nourished well-developed Head: Normocephalic atraumatic Eyes: Perrl EOMI ENT: TMs clear no rhinorrhea moist mucous membranes Neck: Supple no lymphadenopathy no JVD nontender CVS: Regular rate rhythm no murmurs normal S1-S2 Respiratory: No distress clear to auscultation bilaterally chest nontender Abdomen: Soft nontender nondistended normal bowel sounds no masses Back: Nontender Extremity: Right shoulder is tender to palpation posteriorly over the supraspinatus muscle. Painful range of motion. There is no swelling or ecchymosis. No deformity. Neurovascular intact distal. Skin: Normal color no rash Neuro: alert orientated ?3 CN II-XII intact normal strength sensation gait cerebellar Psych: Normal affect normal mood Test Results: Shoulder films were obtained. These were negative. Emergency Department Course and Treatment: Patient received a dose of Toradol. She was advised that the x-rays were negative but does not rule out a rotator cuff tear or other soft tissue injury. His symptoms are not improving 10 to 14 days he should follow-up for repeat examination. I recommend continued anti-inflammatory medication for both the shoulder and his headache. Impression: 1. Right shoulder strain 2. Headache This note was generated with [employer] dictation software. It may contain incorrect words, spelling, and punctuation that were not noted in review of the chart prior to signing ED Disposition - Plan for ED Patient: Disposition: Home or Assisted Living Instructions: Shoulder Sprain Prescriptions: Ibuprofen 600 mg PO 4X/DAY PRN PRN #30 tab PRN Reason: Pain Prescription Printed Referrals: Stephanie Sanchez [NON-STAFF] - Keep Inderjit appointment
--- NOTE | 2019-02-14 08:26 | RAD_ITS ---
STUDY: X-RAY - RIGHT SHOULDER REASON FOR EXAM: Male, 33 years old. Lifting injury. Pain. TECHNIQUE: 4 view(s) of the shoulder. COMPARISON: None. FINDINGS: Normal glenohumeral articulation. Normal acromioclavicular joint. Normal acromion. Normal humeral head and visualized proximal humerus. The soft tissue structures are unremarkable. Normal visualized pulmonary apex. RAD/Shoulder min 2 Views IMPRESSION: Normal x-ray examination of the shoulder. Electronically Signed: Laz Ivy, at 8:50 EDT , Service support ,
[2019-02-14] MEDS: Ketorolac 60 MG/2 ML Vial IM (08:30)
[2019-02-14 08:32] VITALS: RESP 18
[2019-02-14 08:51] LABS: Bedside Glucose 158 mg/dL (70-110)
== END 2019-02-14 09:11 | disposition home or self-care (01) ==
PROVIDERS: Emergency Provider Emergency Medicine
DX: S46.911A Strain of unspecified muscle, fascia and tendon at shoulder and upper arm level, right arm, initial encounter (principal); R51 Headache; W20.8XXA Other cause of strike by thrown, projected or falling object, initial encounter; Y93.9 Activity, unspecified; Y92.9 Unspecified place or not applicable; Y99.9 Unspecified external cause status; E10.9 Type 1 diabetes mellitus without complications; I10 Essential (primary) hypertension; Z72.0 Tobacco use; Z79.4 Long term (current) use of insulin; Z79.899 Other long term (current) drug therapy
CPT/HCPCS: 73030; 82962; 96372; 99282

== ENCOUNTER 2019-06-03 07:51 | Emergency (ER) | payer MEDICAID, SELFPAY ==
[2019-06-03 07:52] VITALS: BP 144/80; PULSE 119; RESP 20; TEMP 36.8; O2SAT 94; BMI 24.5
--- NOTE | 2019-06-03 08:03 | ED.DCSUM_ITS ---
History of Present Illness Chief Complaint: Abd Pain Detail of Chief Complaint: Nausea, vomiting and diarrhea Informant: Patient Onset: Today Context: Sudden Onset Timing: Intermittent Quality: Vomiting x3, one loose watery stool Location: Home Current Severity: Mild Maximum Severity: Moderate Worsened by: Nothing Relieved by: Nothing Associated Symptoms: Thirst, dry mouth, lightheadedness and hands turned purple Narrative: Patient is a 34-year-old type I diabetic who presents to the emergency room by ambulance because of abdominal pain with nausea, vomiting diarrhea. He states he was awakened from sleep with nausea and vomiting at 0230. He had episode of vomiting at that time. He had an additional 1 after he went to bed. He states he awoke at 0430 with loose watery stool. He did not note blood or mucus in the diarrhea. He denies any ill contacts. Feels his stomach is rumbling. He went to work. He got sick at work with additional vomiting. When he went back to his station he felt lightheaded noted his hands were purple and squad was called. BMI is 24. He has had type 1 diabetes for the past 5 years. He states he is on lisinopril to protect his kidney function. He had an A1c level drawn t his past Thursday. He denies fever, chills or night sweats. He denies headache, visual, ocular auditory symptoms. He denies cardiac or respiratory symptoms. He denies urologic symptoms. He has not noted a rash. He is a smoker 1 pack/day. He denies alcohol use or drug use. Prior similar symptoms: No Recent Illness/Hospitalization: No - Past Medical History (1) DKA (diabetic ketoacidoses) Status: Acute Past Medical History - Allergies and Home Meds Allergies/Adverse Reactions: Allergies Penicillins Adverse Reaction (Verified 06/03/19 07:56) Joann Primary Care Physician: Stephanie Sanchez [Primary Care Provider] - Prior records reviewed: Yes - History of KENDRICK Surgical History: no surgical history, - - Testicle, eyes Lives: Alone Smoking Status: Current every day smoker Alcohol: None Drugs: None - Family History Maternal Family History: Reports: Diabetes - Maternal aunt Review of Systems General: Reports: Malaise. Denies: Chills, Fever, Sweats Eyes: Denies: Visual changes - bilaterally, Blurred Vision - bilaterally ENT: Denies: Rhinorrhea, Sore throat Cardiovascular: Denies: Chest pain, Palpitations Respiratory: Denies: Dyspnea, Cough, Dyspnea on exertion Gastrointestinal: Reports: Abdominal pain, Nausea, Vomiting, Diarrhea. Denies: Constipation, Melena, Hematochezia Genitourinary: Denies: Dysuria, Hematuria, Frequency Musculoskeletal: Denies: Myalgias, Arthralgias, Neck pain, Back pain, Swelling, Extremity Pain, -, - Skin: Denies: Rash, Wounds Neurological: Reports: Weakness. Denies: Parasthesia, Numbness Endocrine: Denies: Polyuria, Polydipsia Hematologic: Denies: Easy bruising, Easy bleeding Allergy: Denies: Uticaria, Swelling of the mouth, Swelling of the tongue Physical Exam Vital Signs/Narrative: Vital Signs Temp Pulse Resp BP Pulse Ox 06/03/19 07:52 98.2 F 119 H 20 H 144/80 H 94 Inital Vital Signs reviewed: Yes General: Well nourished, Well developed, No Acute Distress Head: Normocephalic, Atraumatic Eyes: Perrl, EOMI ENT: No rhinorrhea, Dry mucous membranes Neck: Supple, Nontender Cardiovascular: Regular rhythm, No murmurs, Normal S1, Normal S2, Tachycardia Respiratory: No distress, CTA bilaterally, Chest nontender Abdomen: Soft, Nontender, Nondistended, Normal bowel sounds, No masses Back: Nontender, Normal Inspection. Negative for: CVA tenderness Extremities: Nontender, No edema Skin: Normal color, No rash, No Trauma. Negative for: Cyanosis, Diaphoresis, Jaundice Neurological: Alert, Oriented x3, Cranial nerves II-XII grossly intact, Normal Strength, Normal Sensation Psychological: Normal affect, Normal Mood Diagnostic/Tx/Re-eval Laboratory Results 06/03/19 06/03/19 Basic metabolic panels are marked for glucose of 436. 07:59 10:00 Sodium 137 Potassium 4.3 Chloride 100 Carbon Dioxide 21.0 Anion Gap 16 H BUN 17 Creatinine 0.92 Estim Creat Clear Calc 96.52 Est GFR (MDRD) Af Amer 123 Est GFR (MDRD) Non-Af 102 BUN/Creatinine Ratio 18.5 Glucose 436 H Calcium 9.1 POC Glucose 320 H Basic metabolic panel is marked for glucose of 436. Patient received 8 units of insulin. Patient has since passed p.o. challenge. Will discharge home with appropriate home-going instruction and excuse for work for today. - Medical Decision Making Likely patient appears dehydrated. He is tachycardic. A liter of normal saline was ordered. For his persistent nausea and 4 mg of Zofran was ordered. Because he is diabetic a basic metabolic panel was obtained to assess renal function also to assess blood sugar. ED Disposition - Plan for ED Patient: Disposition: Home or Assisted Living Diagnosis: Abdominal pain, vomiting, and diarrhea, Mild dehydration, Hyperglycemia due to type 1 diabetes mellitus Instructions: VOMITING AND DIARRHEA, Nonspecific (Adult), ED Diabetic Hyperglycemia Referrals: Stephanie Sanchez [Primary Care Provider] - 1-2 Days if not improving
[2019-06-03] MEDS: Ondansetron 4 MG/2 ML Vial IV (08:10)
[2019-06-03] MEDS: 0.9% Normal Saline 1,000 ML 1000 ML IV (08:10)
[2019-06-03 08:29] LABS: Anion Gap 16 (5-15); BUN 17 mg/dL (7-18); BUN/Creat Ratio 18.5 RATIO (10-20); Calcium,Total 9.1 mg/dL (8.5-10.1); Chloride 100 mmol/L (98-107); Creatinine, Serum 0.92 mg/dL (0.70-1.30); EST Glomerular Filtration Rate 102 mL/min (>60); Est Glom Filt Rate - Afr Amer 123 mL/min (>60); Estimated Creatinine Clearance 96.52 ml/min; Glucose 436 mg/dL (74-106); Potassium 4.3 mmol/L (3.5-5.1); Sodium Level 137 mmol/L (136-145)
[2019-06-03] MEDS: Insulin Lispro 100 UNIT/ML INSULN.PEN 8 UNIT SC (09:02)
[2019-06-03 09:53] VITALS: RESP 18
[2019-06-03 10:06] LABS: Bedside Glucose 320 mg/dL (70-110)
[2019-06-03 10:30] VITALS: BP 131/85; PULSE 72; RESP 15; O2SAT 97
== END 2019-06-03 10:31 | disposition home or self-care (01) ==
PROVIDERS: Emergency Provider Emergency Medicine
DX: R10.9 Unspecified abdominal pain (principal); R11.2 Nausea with vomiting, unspecified; E10.65 Type 1 diabetes mellitus with hyperglycemia; E86.0 Dehydration; R19.7 Diarrhea, unspecified; F17.200 Nicotine dependence, unspecified, uncomplicated; Z88.0 Allergy status to penicillin; Z79.4 Long term (current) use of insulin; Z79.899 Other long term (current) drug therapy
CPT/HCPCS: 80048; 82962; 96361; 96374; 99285; J7030; A4216; J2405

== ENCOUNTER 2019-06-22 09:21 | Emergency (ER) | payer MEDICAID, SELFPAY ==
[2019-06-22 09:23] VITALS: BP 131/76; PULSE 116; RESP 17; TEMP 36.5; O2SAT 96; BMI 24.4
--- NOTE | 2019-06-22 09:38 | ED.VIS.GEN ---
History of Present Illness Chief Complaint: Back Informant: Patient Onset: Yesterday Maximum Severity: Mild Narrative: Pain to the left parascapular area occurred yesterday while in bed Indicates he was in bed doing activities that he does not wish to go into details about when he began to experience a pain to the left parascapular area indicates he was basically extending his arms quite a bit he did not have any direct trauma he has had a pain to the left parascapular area ever since he was at work indicating he had difficulty moving his arm because of the pain he was sent to the ED Diabetes and other health conditions are all stable and he is seen again at the local health clinic Has history of chronic lumbar back pain he used to see a pain management physician in other parts of [place] he has been in the [facility] area for over a year does not have a PCP and does not have his Percocet and has not seen pain management yet Past Medical History - Allergies and Home Meds Allergies/Adverse Reactions: Allergies Penicillins Adverse Reaction (Verified 06/22/19 09:23) Joann Primary Care Physician: Stephanie Sanchez [Primary Care Provider] - Past Medical History: - Surgical History: no surgical history, - - Testicle, eyes Smoking Status: Current every day smoker - Family History Maternal Family History: Reports: Diabetes - Maternal aunt Review of Systems ROS: - Chronic lumbar back pain General: Reports: - - Only complaint is left parascapular pain. Denies: Chills, Fever, Sweats Eyes: Denies: Visual changes - bilaterally, Diplopia ENT: Denies: Rhinorrhea, Sore throat Cardiovascular: Denies: Chest pain, Palpitations Respiratory: Denies: Dyspnea, Cough, Dyspnea on exertion Gastrointestinal: Denies: Abdominal pain, Nausea, Vomiting, Diarrhea, Melena, Hematochezia Genitourinary: Denies: Dysuria, Hematuria, Frequency Musculoskeletal: Denies: Back pain, Extremity Pain Skin: Denies: Rash, Wounds Neurological: Denies: Headache, Weakness, Numbness Physical Exam Vital Signs/Narrative: Vital Signs Temp Pulse Resp BP Pulse Ox 06/22/19 09:23 97.7 F L 116 H 17 131/76 H 96 General: Well nourished, Well developed, No Acute Distress Head: Normocephalic, Atraumatic Eyes: Perrl, EOMI ENT: Moist mucous membranes, No rhinorrhea Neck: Supple, Nontender Cardiovascular: Regular rate, Regular rhythm, No murmurs Respiratory: No distress, CTA bilaterally, Chest nontender Abdomen: Soft, Nontender, Nondistended, Normal bowel sounds Back: Nontender, Normal Inspection Extremities: Nontender, No edema, - - Complains of pain over the left scapular area he has full range of motion of the left upper extremity shoulder function is normal arm elbow forearm wrist and hand function normal neck has full range of motion nontender T-spine lumbar spine nontender the rest of the exam is entirely unremarkable Skin: Normal color, No rash Neurological: Alert, Oriented x3, Cranial nerves II-XII grossly intact, Normal Strength, Normal Sensation Psychological: Normal affect, Normal Mood Diagnostic/Tx/Re-eval - Medical Decision Making Now this all occurred when he was in bed doing this type of stretching type activity that he does not wish to go into details about he has pain restricted to the left parascapular area his physical exam is unremarkable, indicates he is out of his Percocet medicine as he has been in the [facility] for a year but does not have a PCP or pain management, he is seen at the local clinic Explained to him given all the above that I do not believe that x-rays or imaging would be helpful he agrees I further explained that given the requirements of multiple regulators Percocet type medication needs to be provided by one provider not the emergency department it is appropriate he started on Naprosyn and follow-up with his outpatient providers for further management Home stable Impression final left parascapular pain ED Disposition - Plan for ED Patient: Diagnosis: Shoulder pain, left Instructions: Shoulder Problems, BACK SPASM, No Trauma Prescriptions: Naproxen [Naprosyn] 500 mg PO BID PRN #20 tab Prescription Printed Referrals: Stephanie Sanchez [Primary Care Provider] -
== END 2019-06-22 10:32 | disposition home or self-care (01) ==
PROVIDERS: Emergency Provider Emergency Medicine
DX: M25.512 Pain in left shoulder (principal); E11.9 Type 2 diabetes mellitus without complications; F17.200 Nicotine dependence, unspecified, uncomplicated; Z79.4 Long term (current) use of insulin; Z79.899 Other long term (current) drug therapy
CPT/HCPCS: 99282

== ENCOUNTER 2019-06-24 07:46 | Emergency (ER) | payer MEDICAID, SELFPAY ==
[2019-06-24 07:46] VITALS: BP 156/82; PULSE 99; RESP 18; TEMP 36.4; O2SAT 98; BMI 24.4
--- NOTE | 2019-06-24 07:58 | ED.DCSUM_ITS ---
History of Present Illness Chief Complaint: Upper Extremity Injury Informant: Patient Onset: Yesterday Context: Sudden Onset Timing: Continuous Current Severity: Severe Maximum Severity: Severe Narrative: Patient is a 34-year-old male with history of insulin-dependent diabetes mellitus and sciatica presenting with atraumatic left shoulder pain. Patient states he was getting to bed last night when he felt a pop in his shoulder. He suddenly had significant pain in his shoulder/upper back area. Since then the pain has been constant. It radiates across his back around his neck and down his left arm. He denies any weakness. Pain is worse with range of motion of his shoulder. He took Tylenol about 4 hours ago with no significant relief. He states he has a history of muscles in the shoulder when he was in the . He denies any new activities or exertion over the past few days. 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 He denies any other associated symptoms. Patient is, that he has a history of low back pain and was in pain management on Percocet about a year ago. He is new to the area since then and has not reestablished with pain management. [facility]. He notes that his blood sugars been under control lately. Past Medical History - Allergies and Home Meds Allergies/Adverse Reactions: Allergies Penicillins Adverse Reaction (Verified 06/24/19 07:48) [facility] Primary Care Physician: Stephanie Sanchez [Family Provider] - Past Medical History: - - Insulin dependent diabetes mellitus, chronic back pain Surgical History: no surgical history, - - Testicle, eyes Lives: Spouse/ Significant Other Smoking Status: Current every day smoker - Family History Maternal Family History: Reports: Diabetes - Maternal aunt Review of Systems General: Denies: Chills, Fever, Sweats Eyes: Denies: Visual changes - bilaterally, Diplopia ENT: Denies: Rhinorrhea, Sore throat Cardiovascular: Denies: Chest pain, Palpitations Respiratory: Denies: Dyspnea, Cough, Dyspnea on exertion Gastrointestinal: Denies: Abdominal pain, Nausea, Vomiting, Diarrhea, Melena, Hematochezia Musculoskeletal: Reports: Neck pain, Extremity Pain - Left shoulder. Denies: Back pain Skin: Denies: Rash, Wounds Neurological: Denies: Headache, Weakness, Numbness Physical Exam Vital Signs/Narrative: Vital Signs Temp Pulse Resp BP Pulse Ox 06/24/19 07:46 97.6 F L 99 18 156/82 H 98 Inital Vital Signs reviewed: Yes General: Well nourished, Well developed, No Acute Distress Head: Normocephalic, Atraumatic Eyes: Perrl, EOMI ENT: Moist mucous membranes, No rhinorrhea Neck: Supple, No lymphadenopathy, - - No meningeal signs. Negative for: Nontender - Left paraspinal tenderness to palpation, no midline tenderness Cardiovascular: Regular rate, Regular rhythm, No murmurs Respiratory: No distress, CTA bilaterally, Chest nontender Abdomen: Soft, Nontender, Nondistended, Normal bowel sounds Back: Nontender, Normal Inspection Extremities: No edema, Tenderness - Significant tenderness to palpation of the left trapezius with appreciated spasm of the muscle, - - Normal range of motion of the left shoulder normal strength of flexion and extension of the forearms had normal conference planner strength. No obvious deformity. No bony tenderness to palpation. No joint effusion or warmth appreciated of the upper extremities Skin: Normal color, No rash Neurological: Alert, Oriented x3, Cranial nerves II-XII grossly intact, Normal Strength, Normal Sensation. Negative for: Parasthesia, Weakness Psychological: Normal affect, Normal Mood Diagnostic/Tx/Re-eval - Medical Decision Making Patient has significant spasm and tenderness on his left trapezius muscle. This is likely the cause of his shoulder pain. He was dropped off by his fianc?e and was given a dose of IM Norflex in emergency room as well as oral Motrin. He has no deformity of the shoulder or injury. Do not suspect dislocation or fracture. X-rays not obtained. Patient be treated symptomatically. He is encouraged to follow-up with his primary care doctor next week for further evaluation. Patient is counseled on signs and symptoms requiring return to the emergency room. Patient verbalizes agreement and understand this plan. Patient discharged home in stable and improved condition. ED Disposition - Plan for ED Patient: Disposition: Home or Assisted Living Diagnosis: Muscle spasm of left shoulder Instructions: Muscle Spasm, SHOULDER PAIN (Uncertain Cause) Prescriptions: cycloBENZAPRine HCl [Flexeril] 10 mg PO TID PRN #12 tab PRN Reason: Muscle Spasm Prescription Printed Referrals: Stephanie Sanchez [Family Provider] - Additional Instructions: Apply warm heat to the shoulder to help loosen up the muscles. Follow-up with your primary care doctor next week. Continue to take Tylenol and ibuprofen (up to 600 mg/3 x 200 mg tablets) as well for pain.
[2019-06-24] MEDS: Orphenadrine 60 MG/2 ML Ampul IM (08:37)
--- NOTE | 2019-06-24 08:42 | NURSING ---
PT STATES HE TOOK 400MG IBUPROFEN 4HRS AGO-INFORMED DR GONSALEZ- NEW ORDER RECEIVED FOR 1000MG TYLENOL PO X1.
[2019-06-24] MEDS: Acetaminophen 500 MG Tablet 1000 MG PO (08:47)
[2019-06-24 09:18] VITALS: BP 120/70; PULSE 83; RESP 16; O2SAT 97
== END 2019-06-24 09:19 | disposition home or self-care (01) ==
PROVIDERS: Emergency Provider Emergency Medicine; PCP Nurse Practitioner Family; Referring Provider Nurse Practitioner Family
DX: M62.838 Other muscle spasm (principal); E11.9 Type 2 diabetes mellitus without complications; F17.200 Nicotine dependence, unspecified, uncomplicated; Z79.4 Long term (current) use of insulin; Z79.899 Other long term (current) drug therapy
CPT/HCPCS: 96372; 99283

== ENCOUNTER 2019-07-18 15:57 | Observation (INO) | payer MEDICAID, SELFPAY ==
[2019-07-18] VITALS (11 sets, daily range): BP systolic 106–132; BP diastolic 53–89; PULSE 109–126; RESP 14–22; TEMP 36.4–37.1; O2SAT 97–99; BMI 24.3; BMI 24.4; BMI 24.8
--- NOTE | 2019-07-18 16:21 | ED.DCSUM_ITS ---
- ER Visit Summary Date of Service: 07/18/19 Chief Complaint: Nausea and vomiting History of Present Illness: The patient is a 34 M who presents with nausea and vomiting that is been getting worse over the last couple days. Patient states he ran out of his insulin a couple of days ago and has been having trouble controlling his blood sugars. Patient states he has been having nausea and vomiting but denies any hematemesis or coffee-ground emesis. Patient states he has diffuse abdominal pain. Patient describes as aching and cramping. Patient denies any diarrhea, melena, or hematochezia. Patient denies any fevers or chills. Physical Examination: Vital signs are stable except for a tachycardia of 121. Patient is afebrile. Patient is in no acute distress. Oral mucosa is pink and moist. Neck is supple. Trachea is midline. There is no JVD. Heart was regular and tachycardic. Lungs are clear and equal bilaterally. Abdomen is soft. Bowel sounds are normal. There is diffuse tenderness. There is no rebound or guarding noted. Cranial nerves II through XII are intact. There are no focal motor or sensory deficits noted. Test Results: ECG shows a leukocytosis of 21.7. Basic metabolic profile showed a sodium 131, chloride 97, CO2 of 16, glucose of 388, and an anion gap of 18. Arterial blood gas showed a pH of 7.27, PO2 of 94, PCO2 of 33.5, bicarb of 15.2, and 96% sat on room air. Serum acetone was moderate. Emergency Department Course and Treatment: Patient was given IV fluids and Zofran here. Patient was started on insulin drip. Case was discussed with the hospitalist. He will admit the patient to ICU. Patient understood and was agreeable with the plan. All questions were answered. Disposition: Admit to hospital Impression: Diabetic ketoacidosis This note was generated with Mowj[employer] dictation software. It may contain incorrect words, spelling, and punctuation that were not noted in review of the chart prior to signing ED Disposition - Plan for ED Patient: Disposition: Acute Care Hospital [facility] Diagnosis: DKA (diabetic ketoacidoses) Referrals: Luba Jewell NP-C [Primary Care Provider] -
[2019-07-18 16:36] LABS: Bedside Glucose 363 mg/dL (70-110)
[2019-07-18 16:56] LABS: Allen Test POS; Base Excess -12 mmol/L (-2 to +2); Bicarbonate 15.2 mmol/L (22-26); Blood Gas Specimen Type ART; O2 Delivery Device Room Air; PO2 94 mmHG (75-100); SITE R Radial; SO2 96 % (95-99); Time Given 1648; Total Carbon Dioxide 16 mmol/L; pCO2 33.5 mmHg (35-45); pH 7.27 (7.35-7.45)
[2019-07-18 16:58] LABS: Absolute Lymphocyte Count 1.52 X10^3/uL (0.83-4.51); Absolute Neutrophil Count 19.1 X10^3/uL (2.0-7.7); Basophil# 0.07 X10^3/uL; Basophil% 0.3 % (0-1); Eosinophil# 0.01 X10^3/uL; Hematocrit 47.5 % (40-54); Hemoglobin 15.5 g/dL (13.0-16.5); Lymphocyte # 1.52 X10^3/ul (4.0); Mean Corp Hgb Conc 32.6 g/dL (32-36); Mean Corpuscular Hgb 29.4 pg (27.0-32.0); Mean Platelet Vol. 10.2 fl (6.2-12.0); Monocyte# 0.86 X10^3/uL; NRBC Flagged by Analyzer 0 % (0-5); Neutrophil # 19.06 X10^3/uL (2.7-7.7); Platelet Count 361 K/mm3 (150-450); RBC Distribution Width CV 11.9 % (11.6-14.6); RBC Distribution Width SD 38.7 fl (35.1-43.9); Red Blood Count 5.28 M/mm3 (4.6-6.2); White Blood Count 21.7 K/mm3 (4.4-11.0)
[2019-07-18] MEDS: 0.9% Normal Saline 1,000 ML 1000 ML IV (17:03)
[2019-07-18 17:04] LABS: Anion Gap 18 (5-15); BUN 26 mg/dL (7-18); BUN/Creat Ratio 20.2 RATIO (10-20); Calcium,Total 10.2 mg/dL (8.5-10.1); Chloride 97 mmol/L (98-107); Creatinine, Serum 1.29 mg/dL (0.70-1.30); EST Glomerular Filtration Rate 69 mL/min (>60); Est Glom Filt Rate - Afr Amer 83 mL/min (>60); Estimated Creatinine Clearance 71.51 ml/min; Glucose 388 mg/dL (74-106); Potassium 5.1 mmol/L (3.5-5.1); Sodium Level 131 mmol/L (136-145)
[2019-07-18] MEDS: Ondansetron 4 MG/2 ML Vial IV (17:04)
--- NOTE | 2019-07-18 17:10 | NURSING ---
ICU DIABETIC KETOACIDOSIS AMANDA
--- NOTE | 2019-07-18 17:15 | NURSING ---
ICU 2
[2019-07-18 17:22] LABS: Bacteria 0 SEEN /hpf (None Seen); Mucous, Urine 0 SEEN /hpf (<or=2+); Red Blood Cells-Urine 0 SEEN /hpf (0-5); Squamous Epithelial Cells - UA 0 SEEN /hpf (0-5); White Blood Cells 0 SEEN /hpf (0-5)
--- NOTE | 2019-07-18 17:51 | HP.PCM_ITS ---
History of Present Illness Date of Admission: 07/18/19 Chief Complaint: N/V The patient is a 34 year old M who ran out of his insulin on the third and I was cannot contact his physician today about that is long-acting insulin. Stated that he was doing well over the weekend and then today, took a break at work and then started having nausea and vomiting. Symptoms were consistent with when he has had diabetic ketoacidosis before. In the emergency room, patient was in DKA with a blood sugar of 388, anion gap of 18 , ABG pH of 7.27. Patient received IV fluids and was ordered an insulin drip. Patient states that the last time he was in diabetic ketoacidosis about a year ago. [] Past Medical History Past Medical History (Chronic Problems): Chronic Problems (Last Updated 07/18/19 @ 17:53 by Raghu Davenport DO) Diabetes mellitus type 1 (Chronic) Medical History: Medical History (Last Updated 07/18/19 @ 17:53 by Raghu Davenport DO) Diabetes mellitus type 1 E10.9 Sciatica M54.30 Allergies Penicillins Adverse Reaction (Verified 07/18/19 15:59) Hives Home Medications: Ambulatory Orders Medication Instructions Recorded Insulin Glargine,Hum.rec.anlog 30 unit SQ DAILY 04/14/18 [Basaglar Kwikpen U-100] Lisinopril [Zestril] 10 mg PO DAILY 04/14/18 Duloxetine Hcl [Cymbalta] 60 mg PO DAILY 06/22/19 Ergocalciferol [Vitamin D] 50,000 unit PO Q7D 06/22/19 Gabapentin [Neurontin] 300 mg PO TIDCM 06/22/19 cycloBENZAPRine HCl [Flexeril] 10 mg PO TID PRN #12 tab 06/24/19 Insulin Lispro [Admelog] 0 units SQ TIDCM 07/18/19 Surgical History: no surgical history, - - Testicle, eyes Smoking Status: Current every day smoker Tobacco Use: Cigarettes - *Family History Maternal History Items: Diabetes - Maternal aunt Review of Systems Constitutional: Reports: Chills, Malaise. Denies: Fever Eyes: Denies: Blurred vision, Double vision HEENT: Denies: Head Aches, Sinus Congestion, Sinus Drainage Cardiovascular: Denies: Chest Pain, Palpitations Respiratory: Denies: Cough, Shortness of breath at rest, Sputum production Gastrointestinal: Reports: Nausea, Vomiting. Denies: Abdominal Pain Genitourinary: Reports: - - polyuria. polydypsia. Denies: Dysuria Musculoskeletal: Denies: Joint Pain, Joint Tenderness Skin: Denies: Rash, Wounds Neurological: Denies: Numbness, Tingling, Focal weakness Psychiatric: Denies: Anxiety, Depression Endocrine: Denies: Change in Body Habitus, Heat/ Cold Intolerance Hematologic/ Lymphatic: Denies: Easy Bruising, Easy Bleeding, Hx of blood clot Comment: All review systems are otherwise negative except for as mentioned above and in HPI. VTE Information - Inpt Only VTE Present on Admission: No VTE Mechan Device Prophylaxis: None VTE Pharm Prophylaxis ordered?: No Reason prophylaxis not ordered:: Procedure Not Indicated Patient Problems: Active and Suspected Problems (Last Updated 07/18/19 @ 17:53 by Raghu Davenport DO) DKA (diabetic ketoacidoses) (Acute) - Physical Exam Vitals/I&O's: Vital Signs Temp Pulse Resp BP Pulse Ox 36.4 C L 121 H 20 H 123/89 H 97 07/18/19 15:59 07/18/19 15:59 07/18/19 15:59 07/18/19 15:59 07/18/19 15:59 Oxygen Delivery Method Room Air Weight: 66.4 kg Body Mass Index (BMI) 24.3 Finger Stick Blood Glucose 363 General: Alert, Cooperative, No apparent distress HEENT: Atraumatic, Normocephalic Oral: Moist Mucosa, No Gingival or Mucosal Lesions/ Ulcerations, - - Tongue stud Neck: No Nodes, Trachea Midline Lungs: Clear to auscultation, Normal air movement, No rhonchi, No wheeze Cardiovascular: Regular rate, Regular Rhythm, Normal S1, Normal S2, No murmurs Abdomen: Bowel Sounds Present, Soft, Non Tender, Non-Distended, No Hepato- splenomegaly Extremities: No edema, No Calf Tenderness Skin: No rashes, No breakdown Musculoskeletal: No Tenderness to Palpation of Joints or Extremities, No Muscle Wasting Neurological: Deep Tendon Reflexes 2+/4 and Symmetrical, Muscle tone normal Psych/Mental Status: Normal Affect, Appropriate Laboratory Results 07/18/19 16:25: POC Glucose 363 H 07/18/19 16:30: WBC 21.7 H, RBC 5.28, Hgb 15.5, Hct 47.5, MCV 90.0, MCH 29.4, MCHC 32.6, RDW Std Deviation 38.7, RDW Coeff of Marco Antonio 11.9, Plt Count 361, MPV 10.2, Immature Gran % (Auto) 0.700, Neut % (Auto) 88.0 H, Lymph % (Auto) 7.0 L, [place] % (Auto) 4.0, Eos % (Auto) 0.0, Baso % (Auto) 0.3, Absolute Neuts (auto) 19.1 H, Absolute Lymphs (auto) 1.52, Nucleated RBC % 0 07/18/19 16:30: Sodium 131 L, Potassium 5.1, Chloride 97 L, Carbon Dioxide 16.0 L, Anion Gap 18 H, BUN 26 H, Creatinine 1.29, Estim Creat Clear Calc 71.51, Est GFR (MDRD) Af Amer 83, Est GFR (MDRD) Non-Af 69, BUN/Creatinine Ratio 20.2 H, Glucose 388 H, Calcium 10.2 H 07/18/19 16:30: Acetone Level MODERATE H 07/18/19 16:49: Specimen Type ART, Sample Site R Radial, pH 7.27 L, Bicarbonate Actual 15.2 L, POC Total CO2 16, Base Excess -12 L, O2 Saturation 96, ABG pCO2 33.5 L, ABG pO2 94, Lucian Test POS, O2 Delivery Device Room Air, Blood Gas Notified Whom ED MD, Blood Gas Notified Time 1648 07/18/19 17:10: Urine Color Pending, Urine Clarity Pending, Urine pH Pending, Ur Specific [place] Pending, Urine Protein Pending, Urine Glucose (UA) Pending, Urine Ketones Pending, Urine Occult Blood Pending, Urine Nitrite Pending, Urine Bilirubin Pending, Urine Urobilinogen Pending, Ur Leukocyte Esterase Pending, Urine RBC Pending, Urine WBC Pending, Ur Squamous Epith Cells Pending, Urine Bacteria Pending, Urine Mucus Pending Current Medications Dextrose (D50w Syringe) 0 gm IV X1 PRN; Protocol PRN Reason: Hypoglycemia Protocol Insulin Human Lispro 100 unit/ (Sodium Chloride) 100 mls @ 6.64 mls/hr IV .Q15H4M [facility]; Protocol Stop: 07/19/19 08:18 Sodium Chloride () 10 - 40 ml IV UD PRN PRN Reason: SALINE FLUSH Assessment/Plan All Active Problems (Last Updated 07/18/19 @ 17:53 by Raghu Davenport DO) DKA (diabetic ketoacidoses) (Acute) KENDRICK (acute kidney injury) (Acute) 1. Diabetic ketoacidosis * Secondary to running out of his medications 3 days ago. Patient ran out of his basal insulin but did still have his prandial. * Patient initiated on insulin drip and will continue with the protocol. Resume his regular regimen once he is out of diabetic ketoacidosis. Patient will require prescription for his prandial insulin upon discharge. * Patient has an appointment with Dr. Wojciech Ivan on 08/15/2019 2. Acute renal insufficiency * Creatinine 1.29, baseline 0.92 * Likely prerenal * IV fluids and monitor 3. VTE prophylaxis: Not indicated as patient is low risk. Code Visit Inpatient E&M: 12785 Init Hosp L3
[2019-07-18 17:58] LABS: Color, Urine Yellow (Yellow); Glucose, Dipstick 250 mg/dl (Normal); Leukocyte Esterase-Dipstick Negative /ul (Negative); Nitrite-Dipstick Positive (Negative); Occult Blood-Urine Negative /ul (Negative); Protein-Dipstick 30 mg/dl (Negative); Specific Gravity, Urine 1.025 (1.002-1.030); Urine Bilirubin Dipstick Negative (Negative); Urine Clarity Clear (Clear); Urine Urobilinogen Normal (Normal)
[2019-07-18 18:02] LABS: Ketone-Dipstick 150 mg/dl (Negative)
[2019-07-18 18:21] LABS: Bedside Glucose 357 mg/dL (70-110)
[2019-07-18 20:00] LABS: Bedside Glucose 300 mg/dL (70-110)
[2019-07-18] MEDS: 0.9% Normal Saline 1,000 ML 500 ML IV (20:26)
[2019-07-18 20:36] LABS: Bedside Glucose 189 mg/dL (70-110)
[2019-07-18] MEDS: Dext 5%-0.45% NS 1,000 ML 150 ML IV (20:46)
[2019-07-18] MEDS: cycloBENZAPRine HCl 10 MG Tablet PO (20:47)
[2019-07-18] MEDS: Acetaminophen 325 MG Tablet 650 MG PO (20:48)
[2019-07-18 21:26] LABS: Bedside Glucose 194 mg/dL (70-110)
[2019-07-18 21:26] LABS: Anion Gap 13 (5-15); BUN 24 mg/dL (7-18); BUN/Creat Ratio 21.1 RATIO (10-20); Calcium,Total 8.9 mg/dL (8.5-10.1); Chloride 107 mmol/L (98-107); Creatinine, Serum 1.14 mg/dL (0.70-1.30); EST Glomerular Filtration Rate 79 mL/min (>60); Est Glom Filt Rate - Afr Amer 96 mL/min (>60); Estimated Creatinine Clearance 77.89 ml/min; Glucose 215 mg/dL (74-106); Potassium 3.9 mmol/L (3.5-5.1); Sodium Level 136 mmol/L (136-145)
[2019-07-18 22:25] LABS: Bedside Glucose 171 mg/dL (70-110)
[2019-07-18 23:31] LABS: Bedside Glucose 149 mg/dL (70-110)
[2019-07-19] VITALS (13 sets, daily range): BP systolic 85–118; BP diastolic 39–67; PULSE 92–113; RESP 11–23; TEMP 36.6–37.2; O2SAT 97–99
[2019-07-19 00:25] LABS: Bedside Glucose 164 mg/dL (70-110)
[2019-07-19 00:40] LABS: Anion Gap 5 (5-15); BUN 19 mg/dL (7-18); BUN/Creat Ratio 18.1 RATIO (10-20); Calcium,Total 8.4 mg/dL (8.5-10.1); Chloride 110 mmol/L (98-107); Creatinine, Serum 1.05 mg/dL (0.70-1.30); EST Glomerular Filtration Rate 87 mL/min (>60); Est Glom Filt Rate - Afr Amer 105 mL/min (>60); Estimated Creatinine Clearance 84.57 ml/min; Glucose 161 mg/dL (74-106); Sodium Level 138 mmol/L (136-145)
[2019-07-19 01:21] LABS: Bedside Glucose 96 mg/dL (70-110)
--- NOTE | 2019-07-19 01:30 | NURSING ---
Pt given frozen dinner, Lantus 30u SQ and informed that insulin drip and IVF will be turned off in an hour. Pt states appreciation.
[2019-07-19] MEDS: cycloBENZAPRine HCl 10 MG Tablet PO (05:38)
[2019-07-19] MEDS: Acetaminophen 325 MG Tablet 650 MG PO (05:38)
[2019-07-19 05:44] LABS: Absolute Lymphocyte Count 3.85 X10^3/uL (0.83-4.51); Absolute Neutrophil Count 10.1 X10^3/uL (2.0-7.7); Basophil# 0.04 X10^3/uL; Basophil% 0.3 % (0-1); Eosinophils% 1.9 % (0-5); Hematocrit 40.4 % (40-54); Hemoglobin 13.6 g/dL (13.0-16.5); Lymphocyte # 3.85 X10^3/ul (4.0); Lymphocyte % 24.5 % (19-41); Mean Corp Hgb Conc 33.7 g/dL (32-36); Mean Corpuscular Hgb 29.9 pg (27.0-32.0); Mean Corpuscular Volume 88.8 fL (80-94); Mean Platelet Vol. 9.7 fl (6.2-12.0); Monocyte# 1.36 X10^3/uL; Monocyte% 8.6 % (0-10); NRBC Flagged by Analyzer 0 % (0-5); Neutrophil % 64.2 % (47-70); Platelet Count 315 K/mm3 (150-450); Red Blood Count 4.55 M/mm3 (4.6-6.2); White Blood Count 15.7 K/mm3 (4.4-11.0)
[2019-07-19 05:57] LABS: Anion Gap 5 (5-15); BUN 18 mg/dL (7-18); BUN/Creat Ratio 20.6 RATIO (10-20); Chloride 107 mmol/L (98-107); Creatinine, Serum 0.87 mg/dL (0.70-1.30); EST Glomerular Filtration Rate 108 mL/min (>60); Est Glom Filt Rate - Afr Amer 130 mL/min (>60); Estimated Creatinine Clearance 102.07 ml/min; Glucose 133 mg/dL (74-106); Potassium 4.1 mmol/L (3.5-5.1); Sodium Level 137 mmol/L (136-145)
[2019-07-19] MEDS: Gabapentin 300 MG Capsule PO ×2 (07:56→11:01)
--- NOTE | 2019-07-19 09:19 | DCINST_ITS ---
- Discharge Diagnoses Current Active Problems: Current Active and Chronic Problems (Last Updated 07/18/19 @ 17:53 by Raghu Davenport DO) DKA (diabetic ketoacidoses) (Acute) You will use the following diet at home:: Calorie/Carbohydrate Controlled (specify 1200, 1400, etc) - 1800 YVES. Your food should be the consistency of: Regular Discharge Activity: Return to Normal Activity Weight Bearing Status: Full weight bearing Call your doctor if you observe: Fever of 101 or Higher, Shortness of breath, Dizziness, Fainting spells, Chest pain, Increased palpitations (irregular heartbeat), Uncontrolled pain Instructions: Hyperglycemia (High Blood Sugar), Using a Blood Sugar Log, How to Check Your Blood Sugar Allergies/Adverse Reactions: Allergies Penicillins Adverse Reaction (Verified 07/18/19 15:59) Hives Medications to take at Discharge Lisinopril [Zestril] 10 mg PO DAILY 04/14/18 Duloxetine Hcl [Cymbalta] 60 mg PO DAILY 06/22/19 Ergocalciferol [Vitamin D] 50,000 unit PO Q7D 06/22/19 Gabapentin [Neurontin] 300 mg PO TIDCM 06/22/19 cycloBENZAPRine HCl [Flexeril] 10 mg PO TID PRN #12 tab 06/24/19 Insulin Glargine,Hum.rec.anlog [Basaglar Kwikpen U-100] 30 unit SQ DAILY #2 07/19/19 Insulin Lispro [Admelog] 0 units SQ TIDCM #2 vial 07/19/19 The following prescriptions were given: Insulin Lispro [Admelog] 0 units SQ TIDCM #2 vial Transmission Status: Pending to [facility] Insulin Glargine,Hum.rec.anlog [Basaglar Kwikpen U-100] 30 unit SQ DAILY #2 Prescription Printed Primary Care Physician: Luba Jewell NP-C [Primary Care Provider] - Please follow up with your Primary Care Physician in: 1 WEEK. Test Results: Test results from this visit will be discussed in further detail at your follow- up appointment, if applicable. Please Follow Up With: Wojciech Ivan MD When: as scheduled.
[2019-07-19] MEDS: DULoxetine Hcl 60 MG Capsule PO (09:21)
[2019-07-19] MEDS: Lisinopril 10 MG Tablet PO (09:22)
[2019-07-19 11:00] LABS: Bedside Glucose 347 mg/dL (70-110)
[2019-07-19] MEDS: Insulin Lispro 100 UNIT/ML INSULN.PEN SC (11:01)
--- NOTE | 2019-07-19 14:06 | DS.PCM_ITS ---
Discharge Date and Diagnosis Date of Admission: 07/18/19 Date of Discharge: 07/19/19 - Primary Discharge Diagnosis #1 diabetic ketoacidosis due to noncompliance, patient ran out of his insulin 3 days before admission. #2 uncontrolled type 2 diabetes mellitus. - Secondary Discharge Diagnosis Chronic Problems (Last Updated 07/18/19 @ 17:53 by Raghu Davenport DO) Diabetes mellitus type 1 (Chronic) Hospital Course and Treatment Operations: None Procedures: None Summary of Care Provided: Patient seen and examined on the day of discharge and appeared to be stable to be discharged home. His sugar stabilized, anion gap closed and patient was started on ADA diet. He had no more symptoms. His vital signs are stable. The patient is a 34 year old M patient presented to the emergency room because of not feeling well, nausea and vomiting and he was found to have diabetic ketoacidosis. Patient does have a history of type 1 diabetes mellitus has been on insulin but he ran out of his insulin 3 days ago and he could not get a refill on his insulin by his PCP. Upon arrival to ER, blood sugar was 388, anion gap was 18 and serum bicarb was 16 consistent with acute diabetic ketoacidosis. Patient was admitted to intensive care unit, started on DKA protocol with IV insulin drip and IV fluids as well as electrolyte replacement as appropriate. With treatment, anion gap closed, it came down to 5 and serum bicarb improved which was 16 upon admission and 25 after treatment. Patient was dehydrated for which he received IV fluids and his kidney function improved. After anion gap closed, patient was started on ADA diet. He did very well, had no more symptoms and blood sugar stabilized. Hemoglobin A1c was 10%. Patient mentioned that he does not check his blood sugar every day but only as needed but he mentioned that his sugar has been under fair control. Apparently, his sugar is not well controlled. He does have an appointment to see [facility] with Dr. Abel Ivan on September 09. Patient discharged home in a stable medical condition, prescriptions for glargine insulin as well as insulin lispro sent to his pharmacy electronically, instructed to use his previous insulin sliding scale without any changes, highly recommended to check blood sugar at least 3-4 times daily and to make a blood sugar log for Dr. Ivan to see up on follow-up, continued on his previous home medications without any changes, recommended follow-up with PCP in 1 week and with endocrinology as scheduled. - Physical Exam Vitals/I&O's: Vital Signs Temp Pulse Resp BP Pulse Ox 97.8 F 103 H 12 107/60 97 07/19/19 08:00 07/19/19 11:12 07/19/19 10:00 07/19/19 10:00 07/19/19 10:00 Oxygen Delivery Method Room Air Weight: 147 lb 14.883 oz Body Mass Index (BMI) 24.8 Finger Stick Blood Glucose 96 Intake and Output for Last 24 Hours 07/17/19 07/18/19 07/19/19 23:59 23:59 23:59 Intake Total 2373.23 / 2623.23 1197.43 / 1197.43 Output Total 850 / 850 Balance 2373.23 / 2273.23 347.43 / 347.43 General: Alert, Oriented x3, Cooperative, No apparent distress HEENT: Atraumatic, PERRLA, EOMI, Normocephalic Oral: Moist Mucosa, No Gingival or Mucosal Lesions/ Ulcerations Neck: Supple, No JVD, Negative Carotid Bruits, Trachea Midline, Thyroid Normal Size and Texture Lungs: Clear to auscultation, Normal air movement, No rhonchi, No wheeze, No rales Cardiovascular: Regular rate, Regular Rhythm, Normal S1, Normal S2, PMI Normal Abdomen: Bowel Sounds Present, Soft, Non Tender, Non-Distended, No Hepato- splenomegaly Extremities: No clubbing, No cyanosis, No edema Skin: No rashes, No breakdown Lymphatic: No Cervical, Supraclavicular, or Inguinal Adenopathy Neurological: Cranial nerves II-XII grossly intact, Neuro grossly intact Psych/Mental Status: Normal Affect, Appropriate Laboratory Results 07/18/19 16:25: POC Glucose 363 H 07/18/19 16:30: WBC 21.7 H, RBC 5.28, Hgb 15.5, Hct 47.5, MCV 90.0, MCH 29.4, MCHC 32.6, RDW Std Deviation 38.7, RDW Coeff of Marco Antonio 11.9, Plt Count 361, MPV 10.2, Immature Gran % (Auto) 0.700, Neut % (Auto) 88.0 H, Lymph % (Auto) 7.0 L, [place] % (Auto) 4.0, Eos % (Auto) 0.0, Baso % (Auto) 0.3, Absolute Neuts (auto) 19.1 H, Absolute Lymphs (auto) 1.52, Nucleated RBC % 0 07/18/19 16:30: Sodium 131 L, Potassium 5.1, Chloride 97 L, Carbon Dioxide 16.0 L, Anion Gap 18 H, BUN 26 H, Creatinine 1.29, Estim Creat Clear Calc 71.51, Est GFR (MDRD) Af Amer 83, Est GFR (MDRD) Non-Af 69, BUN/Creatinine Ratio 20.2 H, Glucose 388 H, Calcium 10.2 H 07/18/19 16:30: Acetone Level MODERATE H 07/18/19 16:49: Specimen Type ART, Sample Site R Radial, pH 7.27 L, Bicarbonate Actual 15.2 L, POC Total CO2 16, Base Excess -12 L, O2 Saturation 96, ABG pCO2 33.5 L, ABG pO2 94, Lucian Test POS, O2 Delivery Device Room Air, Blood Gas Not ified Whom ED MD, Blood Gas Notified Time 1648 07/18/19 17:10: Urine Color Yellow, Urine Clarity Clear, Urine pH 5.0, Ur Specific [place] 1.025, Urine Protein 30 H, Urine Glucose (UA) 250 H, Urine Ketones 150 H, Urine Occult Blood Negative, Urine Nitrite Positive H, Urine Bi lirubin Negative, Urine Urobilinogen Normal, Ur Leukocyte Esterase Negative, Urine RBC 0 SEEN, Urine WBC 0 SEEN, Ur Squamous Epith Cells 0 SEEN, Urine Bacteria 0 SEEN, Urine Mucus 0 SEEN 07/18/19 18:10: POC Glucose 357 H 07/18/19 19:16: POC Glucose 300 H 07/18/19 20:10: Hemoglobin A1c 10.0 H 07/18/19 20:10: Sodium 136, Potassium 3.9, Chloride 107, Carbon Dioxide 16.0 L, Anion Gap 13, BUN 24 H, Creatinine 1.14, Estim Creat Clear Calc 77.89, Est GFR (MDRD) Af Amer 96, Est GFR (MDRD) Non-Af 79, BUN/Creatinine Ratio 21.1 H, Glucose 215 H, Calcium 8.9 07/18/19 20:24: POC Glucose 189 H 07/18/19 21:19: POC Glucose 194 H 07/18/19 22:18: POC Glucose 171 H 07/18/19 23:24: POC Glucose 149 H 07/19/19 00:15: Sodium 138, Potassium 4.0, Chloride 110 H, Carbon Dioxide 23.0, Anion Gap 5, BUN 19 H, Creatinine 1.05, Estim Creat Clear Calc 84.57, Est GFR (MDRD) Af Amer 105, Est GFR (MDRD) Non-Af 87, BUN/Creatinine Ratio 18.1, Glucose 161 H, Calcium 8.4 L 07/19/19 00:16: POC Glucose 164 H 07/19/19 01:14: POC Glucose 96 07/19/19 05:30: WBC 15.7 H, RBC 4.55 L, Hgb 13.6, Hct 40.4, MCV 88.8, MCH 29.9, MCHC 33.7, RDW Std Deviation 39.0, RDW Coeff of [place] 12.0, Plt Count 315, MPV 9.7, Immature Gran % (Auto) 0.500, Neut % (Auto) 64.2, Lymph % (Auto) 24.5, [place] % (Auto) 8.6, Eos % (Auto) 1.9, Baso % (Auto) 0.3, Absolute Neuts (auto) 10.1 H, Absolute Lymphs (auto) 3.85, Nucleated RBC % 0 07/19/19 05:30: Sodium 137, Potassium 4.1, Chloride 107, Carbon Dioxide 25.0, Anion Gap 5, BUN 18, Creatinine 0.87, Estim Creat Clear Calc 102.07, Est GFR (MDRD) Af Amer 130, Est GFR (MDRD) Non-Af 108, BUN/Creatinine Ratio 20.6 H, G lucose 133 H, Calcium 8.0 L 07/19/19 10:58: POC Glucose 347 H Discharge Activity: Return to Normal Activity Weight Bearing Status: Full weight bearing Call your doctor if you observe: Fever of 101 or Higher, Shortness of breath, Dizziness, Fainting spells, Chest pain, Increased palpitations (irregular heartbeat), Uncontrolled pain Home Medications: Medications to take at Discharge Lisinopril [Zestril] 10 mg PO DAILY 04/14/18 Duloxetine Hcl [Cymbalta] 60 mg PO DAILY 06/22/19 Ergocalciferol [Vitamin D] 50,000 unit PO Q7D 06/22/19 Gabapentin [Neurontin] 300 mg PO TIDCM 06/22/19 cycloBENZAPRine HCl [Flexeril] 10 mg PO TID PRN #12 tab 06/24/19 Insulin Glargine,Hum.rec.anlog [Basaglar Kwikpen U-100] 30 unit SQ DAILY #2 07/19/19 Insulin Lispro [Admelog] 0 units SQ TIDCM #2 vial 07/19/19 Following Prescrptions Were Given to Patient: Insulin Lispro [Admelog] 0 units SQ TIDCM #2 vial Transmission Status: Received by [facility] Insulin Glargine,Hum.rec.anlog [Basaglar Kwikpen U-100] 30 unit SQ DAILY #2 Prescription Printed Primary Care Physician: Luba Jewell NP-C [Primary Care Provider] - Please follow up with your Primary Care Physician in: 1 WEEK. Please Follow Up With: Wojciech Ivan MD When: as scheduled. Patient Instructions: Using a Blood Sugar Log, Hyperglycemia (High Blood Sugar), How to Check Your Blood Sugar Disposition: Home Minutes spent on discharge:: 26 Patient Condition:: Stable Medical Necessity - Tobacco Use Smoking Status: Current every day smoker Tobacco Use: Cigarettes Meaningful Use Info Meaningful Use Diagnoses (Choose all that apply): None applicable Code Visit Inpatient E&M: 21876 Disch Hosp
== END 2019-07-19 12:45 | disposition home or self-care (01) ==
LOC: ED 17:12 → ICU 17:59
PROVIDERS: Emergency Provider Emergency Medicine; Family Provider Nurse Practitioner Family; PCP Nurse Practitioner Family; Visit Provider Hospitalist
DX: E10.10 Type 1 diabetes mellitus with ketoacidosis without coma (principal); Z91.14 Patient's other noncompliance with medication regimen; Z79.899 Other long term (current) drug therapy; Z79.4 Long term (current) use of insulin; M54.30 Sciatica, unspecified side; Z87.891 Personal history of nicotine dependence; N17.9 Acute kidney failure, unspecified
CPT/HCPCS: 36600; 80048; 81001; 82009; 82803; 82962; 83036; 85025; 96365; 96366; 96375; 99218; 99285; J7030; A4216; G0378; J2405; J7799

== ENCOUNTER 2019-09-16 15:27 | Emergency (ER) | payer MEDICAID, SELFPAY ==
[2019-07-18 19:36] VITALS: BMI 24.8
[2019-09-16 15:29] VITALS: BP 132/83; PULSE 93; RESP 18; TEMP 36.6; O2SAT 93; BMI 23.4
--- NOTE | 2019-09-16 15:55 | ED.VIS.DENTA ---
History of Present Illness Chief Complaint: Dental Informant: Patient Onset: Days Context: Gradual Onset Narrative: Patient is a 34-year-old male with history of type 1 diabetes mellitus presenting with 4 days of worsening right-sided ear and jaw pain. He states he cannot localize it to either his top or bottom jaw. He does not have a dentist. He denies any difficulty swallowing or opening his mouth. He states he is having a lot of pressure in his ear and he feels like it is about to burst. He does have associated headache. He does not have associated fever or chills. He denies any neck pain. He does have a primary care physician. He took ibuprofen about 10 minutes prior to arrival with no significant relief of his symptoms. He denies any other complaints at this time. Past Medical History - Allergies and Home Meds Allergies/Adverse Reactions: Allergies Penicillins Adverse Reaction (Verified 07/18/19 15:59) Joann Primary Care Physician: Luba Jewell NP-C [Primary Care Provider] - Past Medical History: - - Diabetes mellitus type 1 Surgical History: no surgical history, - - Testicle, eyes Smoking Status: Current every day smoker - Family History Maternal Family History: Reports: Diabetes - Maternal aunt Review of Systems General: Denies: Chills, Fever, Sweats Eyes: Denies: Visual changes - bilaterally, Diplopia ENT: Reports: Right ear pain, - - Right dental pain. Denies: Rhinorrhea, Sore throat Cardiovascular: Denies: Chest pain, Palpitations Respiratory: Denies: Dyspnea, Cough, Dyspnea on exertion Gastrointestinal: Denies: Abdominal pain, Nausea, Vomiting Musculoskeletal: Denies: Back pain, Extremity Pain Skin: Denies: Rash, Wounds Neurological: Reports: Headache. Denies: Weakness, Numbness Physical Exam Vital Signs/Narrative: Vital Signs Temp Pulse Resp BP Pulse Ox 09/16/19 15:29 97.8 F 93 18 132/83 H 93 Inital Vital Signs reviewed: Yes General: Well nourished, Well developed Head: Normocephalic, Atraumatic ENT: Moist mucous membranes, No rhinorrhea, TM erythema right. Negative for: Sinus tenderness Mouth/Throat: Normal inspection lips/gums, Normal oral mucosa, No focal abscess, Normal posterior oropharynx, No sublingual edema, Widespread dental decay. Negative for: Dental trauma, Focal gum swelling, Tenderness on tooth percussion, Trismus Neck: Supple, No lymphadenopathy, Nontender, No JVD, - - No meningeal signs Cardiovascular: Regular rate, Regular rhythm, No murmurs Respiratory: No distress, CTA bilaterally, Chest nontender Abdomen: Soft, Nontender, Nondistended, Normal bowel sounds Extremities: Nontender, No edema Skin: Normal color, No rash Neurological: Alert, Oriented x3, Cranial nerves II-XII grossly intact, Normal Strength, Normal Sensation Psychological: Normal affect Diagnostic/Tx/Re-eval - Medical Decision Making Patient is evaluated for right-sided facial pain. He feels that it is more from his jaw however on exam I suspect an otitis media. Patient has erythema and decreased visualization of the bony landmarks of the right tympanic membrane. He is otherwise well-appearing. He was given a one-time dose of Percocet the emergency room and started on clindamycin as he does have a penicillin allergy. This will also cover for possible dental infection. Patient does have widespread dental decay will be given dental referral sheet. He is instructed to follow-up with his primary care doctor. Patient is been having trismus or signs of Naman's angina. I do not think he needs any imaging or blood work at this time. He is counseled to stop smoking. Patient is counseled on signs and symptoms requiring return to the emergency room. Patient verbalizes agreement and understand this plan. Patient discharged home in stable and improved condition. ED Disposition - Plan for ED Patient: Disposition: Home or Assisted Living Diagnosis: Otalgia, right ear Instructions: OTITIS MEDIA, Abx Tx (Adult), Dental Pain Prescriptions: Clindamycin [Cleocin] 450 mg PO 4X/DAY #84 cap Transmission Status: Pending to [facility] Ibuprofen [Motrin] 600 mg PO Q6H PRN PRN #20 tab PRN Reason: Pain Or Fever Transmission Status: Pending to [facility] Referrals: Luba Jewell NP-C [Primary Care Provider] -
[2019-09-16] MEDS: oxyCODONE 5 MG Tablet PO (16:31)
[2019-09-16] MEDS: Clindamycin HCl 150 MG Capsule 300 MG PO (16:31)
== END 2019-09-16 16:35 | disposition home or self-care (01) ==
PROVIDERS: Emergency Provider Emergency Medicine; PCP Nurse Practitioner Family
DX: H92.01 Otalgia, right ear (principal); K02.9 Dental caries, unspecified; E10.9 Type 1 diabetes mellitus without complications; F17.200 Nicotine dependence, unspecified, uncomplicated; Z79.4 Long term (current) use of insulin
CPT/HCPCS: 99283

== ENCOUNTER 2019-09-22 05:56 | Emergency (ER) | payer MEDICAID, SELFPAY ==
[2019-09-22 05:56] VITALS: BP 130/97; PULSE 77; RESP 16; TEMP 36.5; O2SAT 97; BMI 23.4
--- NOTE | 2019-09-22 05:59 | ED.DCSUM_ITS ---
- ER Visit Summary Date of Service: 09/22/19 Chief Complaint: Tooth pain History of Present Illness: The patient is a 34 M who presents with tooth pain. Is been ongoing for 2 weeks. He was seen here 6 days ago and was given clindamycin and ibuprofen. He states that he cannot afford a dentist at this time. Denies any fevers or facial swelling. He is a smoker and continues to smoke. He is a type I diabetic. Physical Examination: Vital signs are reviewed. Mouth exam reveals diffuse dental decay with rotting and missing teeth. He has tenderness on the right- hand side. No gingival abscess. No facial swelling. No Naman's angina Test Results: None performed Emergency Department Course and Treatment: I will switch the patient's antibiotics from clindamycin to a azithromycin. I will also give him naproxen to take at home. He will be given dental referral paperwork Treatment Plan: [] Disposition: Discharge Impression: Odontalgia, subsequent visit This note was generated with [employer] dictation software. It may contain incorrect words, spelling, and punctuation that were not noted in review of the chart prior to signing ED Disposition - Plan for ED Patient: Disposition: Home or Assisted Living Instructions: Dental Pain Prescriptions: Azithromycin 500 mg PO DAILY #3 tab Transmission Status: Pending to [facility] Naproxen [Naprosyn] 500 mg PO BID PRN #20 tab Transmission Status: Pending to [email or web address] Referrals: Luba Jewell NP-C [Primary Care Provider] -
[2019-09-22] MEDS: Naproxen 500 MG Tablet PO (06:14)
== END 2019-09-22 06:23 | disposition home or self-care (01) ==
LOC: ED 06:17
PROVIDERS: Emergency Provider Emergency Medicine; PCP Nurse Practitioner Family
DX: K08.89 Other specified disorders of teeth and supporting structures (principal); E10.9 Type 1 diabetes mellitus without complications; F17.200 Nicotine dependence, unspecified, uncomplicated; Z79.4 Long term (current) use of insulin

== ENCOUNTER 2019-11-29 16:12 | Emergency (ER) | payer MEDICAID, SELFPAY ==
[2019-11-29 16:13] VITALS: BP 129/81; RESP 16; TEMP 36.2; O2SAT 97; BMI 23.4
[2019-11-29] MEDS: Diphth,Pertuss(Acell),Tet Vac 0.5 ML Vial IM (16:27)
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
--- NOTE | 2019-11-29 18:11 | DCINST.ED_ITS ---
ED Disposition - Plan for ED Patient: Instructions: ED Crush Injury Finger No Fx Referrals: Luba Jewell, LEAD DATABASE ADMINISTRATOR-C [Primary Care Provider] -
--- NOTE | 2019-11-29 18:11 | ED.DEP ---
ED Disposition - Plan for ED Patient: Instructions: ED Crush Injury Finger No Fx Referrals: Luba Jewell, [employer] WORK[employer] KITCHEN-C [Primary Care Provider] -
[2019-11-29] MEDS: HYDROcodone Bitartrate/Apap 5/325 Tablet PO (18:25)
[2019-11-29 18:27] VITALS: PULSE 84; RESP 16
== END 2019-11-29 18:29 | disposition home or self-care (01) ==
LOC: ED 16:48
PROVIDERS: Emergency Provider Emergency Medicine; PCP Nurse Practitioner Family
DX: S60.031A Contusion of right middle finger without damage to nail, initial encounter (principal); W22.8XXA Striking against or struck by other objects, initial encounter; Y93.89 Activity, other specified; Y92.9 Unspecified place or not applicable; E11.9 Type 2 diabetes mellitus without complications; Z79.4 Long term (current) use of insulin
CPT/HCPCS: 73130; 90715; 99283; A4216

== ENCOUNTER 2020-08-12 13:02 | Emergency (ER) | payer MEDICAID, SELFPAY ==
[2020-08-12 13:03] VITALS: BP 134/86; PULSE 88; RESP 16; TEMP 36.1; O2SAT 95; BMI 22.7
--- NOTE | 2020-08-12 13:30 | ED.DCSUM_ITS ---
History of Present Illness Chief Complaint: Back Narrative: Patient presenting for evaluation secondary to neck pain and arm tingling. Patient reports that he chronically deals with back pain. Intermittently he will have bouts of lower back pain. Had a history of having injections in his lower back in the past. He states that he had an onset of his lower back pain that was really characteristic for his typical back pain, although states that he has developed neck pain with numbness in the bilateral arms bilaterally. He describes the numbness as a tingling type sensation. Neck pain is worse with range of motion. This was not associated with any sort of specific injury. He denies any fevers chills night sweats or unintended weight loss. He denies any recent injections or surgeries or history of IV drug abuse. Patient states that in the past he had been treated with gabapentin and Flexeril and did get some relief from that, although does not have any of that now. Review of systems otherwise negative. Past Medical History - Allergies and Home Meds Allergies/Adverse Reactions: Allergies Penicillins Adverse Reaction (Verified 08/12/20 13:05) Hives Prior records reviewed: Yes Past Medical History: - - Type 1 diabetes, chronic back pain Surgical History: no surgical history, - - Testicle, eyes Smoking Status: Current every day smoker Alcohol: Occasional Drugs: None - Family History Maternal Family History: Reports: Diabetes - Maternal aunt Review of Systems All systems negative except as indicated General: Denies: Chills, Fever, Sweats Eyes: Denies: Visual changes - bilaterally, Diplopia ENT: Denies: Rhinorrhea, Sore throat Cardiovascular: Denies: Chest pain, Palpitations Respiratory: Denies: Dyspnea, Cough, Dyspnea on exertion Gastrointestinal: Denies: Abdominal pain, Nausea, Vomiting, Diarrhea, Melena, Hematochezia Genitourinary: Denies: Dysuria, Hematuria, Frequency Musculoskeletal: Reports: Neck pain, Back pain Skin: Denies: Rash, Wounds Neurological: Reports: Parasthesia Physical Exam Vital Signs/Narrative: Vital Signs Temp Pulse Resp BP Pulse Ox 08/12/20 13:03 97.0 F L 88 16 134/86 H 95 Inital Vital Signs reviewed: Yes General: Well nourished, Well developed, No Acute Distress Head: Normocephalic, Atraumatic Eyes: Perrl, EOMI ENT: Moist mucous membranes, No rhinorrhea Neck: Supple, Nontender, - - Diffuse tenderness to palpation of the neck including the midline and paraspinal regions. Patient has reproduction of radicular symptoms with axial loading of the neck both on the right and the le ft. Cardiovascular: Regular rate, Regular rhythm, No murmurs Respiratory: No distress, CTA bilaterally, Chest nontender Abdomen: Soft, Nontender, Nondistended, Normal bowel sounds Back: Nontender, Normal Inspection Extremities: Nontender, No edema Skin: Normal color, No rash Neurological: Alert, Oriented x3, Cranial nerves II-XII grossly intact, Normal Strength, Normal Sensation, - - 5 out of 5 strength at the shoulder elbow wrist and hand with normal sensation over all dermatomes. 2+ brachioradialis biceps and triceps reflexes bilaterally. Normal distal pulses. Patient reports dysesthesia of the arms over all dermatomes. Psychological: Normal affect, Normal Mood Diagnostic/Tx/Re-eval - Medical Decision Making Patient is presenting with radicular symptoms of the cervical spine. He has no red flag signs or symptoms, no indication for imaging. Patient is type I diabetic, steroids potentially could adversely affect his blood glucose. Patient be treated with a course of gabapentin and Flexeril as he states that he has had relief that the past. Patient will be given a referral to pain management. ED Disposition - Plan for ED Patient: Disposition: Home or Assisted Living Diagnosis: Cervical radiculopathy Instructions: ED Radiculopathy, Cervical Prescriptions: cycloBENZAPRine HCl [Flexeril] 10 mg PO TID PRN #20 tab PRN Reason: Muscle Spasm Transmission Status: Pending to [facility] Gabapentin 300 mg PO TID #30 cap Transmission Status: Pending to [facility] Referrals: Juvenal Duarte MD [STAFF PHYSICIAN] - As Needed
== END 2020-08-12 13:49 | disposition home or self-care (01) ==
PROVIDERS: Emergency Provider Emergency Medicine
DX: M54.12 Radiculopathy, cervical region (principal); F17.200 Nicotine dependence, unspecified, uncomplicated
CPT/HCPCS: 99282

== ENCOUNTER 2020-08-28 14:15 | Emergency (ER) | payer MEDICAID, SELFPAY ==
[2020-08-28 14:16] VITALS: BP 156/89; PULSE 105; RESP 17; TEMP 36.6; O2SAT 97; BMI 22.6
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
--- NOTE | 2020-08-28 15:13 | ED.VISSUMM ---
- ER Visit Summary Date of Service: 08/28/20 Chief Complaint: Right great toe injury History of Present Illness: The patient is a 35 M who presents with injury to his right great toe that occurred yesterday. Patient states he was walking and accidentally kicked a door. Patient states the pain is worse with any weightbearing and movement. Patient denies any paresthesias or weakness. Patient states he has been keeping the foot elevated. Patient denies any other injuries. Patient denies any ankle pain. Physical Examination: Vital signs are stable. Patient is afebrile. Patient is in no acute distress. Musculoskeletal exam reveals tenderness over the right great toe. There is no deformity. There is some edema and ecchymosis. There is no tenderness over the first metatarsal. There is no tenderness over the fifth metatarsal. There is no tenderness over the medial or lateral malleoli. Range of motion was limited in all motions of the great toe secondary to pain. Sensation was intact to light touch in all digits. Capillary refill was less than 2 seconds in all digits. Test Results: X-rays of the right great toe were obtained. There are 3 views. On my interpretation, there is no acute fracture or dislocation. There is some soft tissue swelling. Radiologist also interpreted the x-ray and agrees. Emergency Department Course and Treatment: Patient was given a postop shoe. Patient was given a dose of ibuprofen here. Patient was instructed to ice and elevate the right great toe. Patient was instructed to take Tylenol or ibuprofen as needed for pain. Patient was instructed to follow-up with a primary care physician in 5 to 7 days. Patient understood and was agreeable with the plan. All questions were answered. Disposition: Discharge home Impression: 1. Right great toe contusion This note was generated with [employer] dictation software. It may contain incorrect words, spelling, and punctuation that were not noted in review of the chart prior to signing ED Disposition - Plan for ED Patient: Disposition: Home or Assisted Living Diagnosis: Contusion of right great toe without damage to nail, initial encounter Instructions: ED Foot Contusion Referrals: Paula Bernal MD [STAFF PHYSICIAN] - 5-7 Days
[2020-08-28 15:38] VITALS: PULSE 100; RESP 16; O2SAT 98
== END 2020-08-28 15:39 | disposition home or self-care (01) ==
PROVIDERS: Emergency Provider Emergency Medicine
DX: S90.111A Contusion of right great toe without damage to nail, initial encounter (principal); W22.09XA Striking against other stationary object, initial encounter; Y93.01 Activity, walking, marching and hiking; Y92.9 Unspecified place or not applicable; Y99.9 Unspecified external cause status; E11.40 Type 2 diabetes mellitus with diabetic neuropathy, unspecified; Z79.4 Long term (current) use of insulin; Z72.0 Tobacco use
CPT/HCPCS: 73660; 99283

== ENCOUNTER 2020-11-13 00:35 | Emergency (ER) | payer MEDICAID, SELFPAY ==
[2020-11-13 00:36] VITALS: BP 110/76; PULSE 115; RESP 18; TEMP 36.8; O2SAT 98; BMI 22.6
[2020-11-13 00:38] VITALS: BP 110/76; PULSE 115; RESP 18; TEMP 36.8; O2SAT 98
--- NOTE | 2020-11-13 00:59 | RAD_ITS ---
EXAM: XR CHEST, 1 VIEW : 1985 CLINICAL INDICATION: sob TECHNIQUE: Frontal view of the chest. This report was created using [employer] report generation technology. COMPARISON: 04/14/2018 FINDINGS: LUNGS AND PLEURAL SPACES: Unremarkable. No consolidation or edema. No pneumothorax. No effusion. HEART: Unremarkable. Cardiac silhouette not enlarged. MEDIASTINUM: Central airways and mediastinal contour are unremarkable. BONES/JOINTS: Unremarkable. SOFT TISSUES: Unremarkable. RAD/Chest 1 View (Portable) IMPRESSION: No radiographic evidence of acute cardiopulmonary disease. at 0136 Reported and signed by: Saud Mckinnon MD Electronically Signed: Saud Mckinnon MD at 1:35 EDT Tel , Service support ,
--- NOTE | 2020-11-13 01:52 | EDS_ITS ---
HPI History of Present Illness Chief Complaint: Nausea/Vomiting/Diarrhea Informant: patient Onset/Context/Timing Onset: Days Context: Gradual Onset Timing: Intermittent Current Severity: Mild Maximum Severity: Moderate Narrative Narrative: The patient presents with mild cough, intermittent nausea, and a few episodes of loose watery diarrhea. The patient states that he was in contact with someone who is Covid positive. He is not had fever. He states that he will get chest pain with coughing. He states he is otherwise been in his normal state of health. He does not feel short of breath. He has no difficulty laying flat. He denies weight loss. Prior similar symptoms: No Recent Illness/Hospitalization: No PFSH PFSH Medical History Diabetes mellitus type 1 Sciatica Home Medications NK 11/13/20 [History Last Taken Unknown] Allergy/AdvReac Type Severity Reaction Status Date / Time Penicillins AdvReac Hives Verified 11/13/20 00:38 Social History Smoking Status: Current every day smoker ROS ROS ED Constitutional Constitutional ED: Denies chills or fever(s) Eyes Eyes: Denies blurry vision or change in vision ENT ENT ED: Denies ear pain or sore throat Cardiovascular Cardiovascular: Denies chest pain or palpitations Respiratory/Chest Respiratory/Chest: Reports cough; Denies dyspnea or dyspnea on exertion Gastrointestinal Gastrointestinal: Reports diarrhea and nausea; Denies abdominal pain or vomiting Genitourinary Genitourinary ED: Denies dysuria or urinary frequency Musculoskeletal Musculoskeletal: Denies arthralgias or myalgias Integumentary Denies rash Neurologic Neurologic: Denies headache(s) or paresthesias Psychiatric Psychiatric: Denies anxiety or depression Endocrine Endocrinology: Denies polydipsia or polyuria Allergic/Immunologic Allergic/Immunologic ED: Denies urticaria EXAM Physical Exam Const Vital Signs: 11/13/20 00:36 11/13/20 00:38 Temperature 98.2 F 98.2 F Temperature Source Temporal Temporal Pulse Rate 115 H 115 H Respiratory Rate 18 18 Blood Pressure 110/76 110/76 Blood Pressure Mean 87 87 Pulse Ox 98 98 Oxygen Delivery Method Room Air Room Air Positive well nourished and well developed General Appearance ED: well developed HEENT Reports normocephalic, head/scalp atraumatic and moist mucous membranes Eyes PERRL and EOMs intact bilaterally Neck no lymphadenopathy and supple General: Negative for tenderness Chest Wall inspection of chest normal Resp normal respiratory effort and clear to auscultation bilaterally Cardio regular rate, regular rhythm and no murmurs GI normal to inspection, nondistended, normoactive bowel sounds Palpation: Negative for tender, guarding or rebound tenderness present Back/Spine no CVA tenderness Cervical Spine: Negative for cervical spine tenderness Thoracic Spine / Upper Back: Negative for thoracic spinal tenderness Extremity normal to inspection General Extremety ED: Negative for tenderness Neuro oriented x3 and CN's II-XII intact bilaterally Neuro Narrative: No focal deficits appreciated. Sensorium / Orientation: alert Psych mental status grossly normal Skin no rashes or lesions noted, no wounds and skin turgor normal MDM MDM MDM Narrative Medical decision making narrative: The patient presents with symptoms concerning for Covid. He is mildly tachycardic, but not hypoxic or tachypneic. Chest x- ray was obtained. Was read by both myself and the radiologist. There is no focal infiltrative process. Covid was obtained was negative. Patient was reassured. At this point, symptoms do seem viral in nature. He is well- appearing. He was counseled on concerning symptoms and reasons to return. He will be discharged home. Impression 1. Viral illness Lab Data Attestation: I reviewed the patient's lab results. Radiography Chest X-Ray - ED: 1 View, Read by ED Physician, Read by Radiologist, Normal, Heart, Lungs, Mediastinum, Bony Structures and No Acute Disease Diagnostic Testing: Radiology Impression Chest X-Ray 11/13/20 00:59 IMPRESSION: No radiographic evidence of acute cardiopulmonary disease. at 0136 Reported and signed by: Saud Mckinnon MD Electronically Signed: Saud Mckinnon MD at 1:35 EDT Tel , Service support , Discharge Plan Triage Chief Complaint: Nausea/Vomiting/Diarrhea ED Provider: Riley Bowen Dx/Rx/DC Orders Instructions: ED Gastroenteritis, Viral (Adult) Prescriptions: No Action NK RF: 0 Primary Care Provider: Care Physician,No Primary Referrals: Care Physician,No Primary [Primary Care Provider] -
[2020-11-13 02:03] VITALS: BP 110/76; PULSE 115; RESP 18; TEMP 36.8; O2SAT 98
== END 2020-11-13 02:06 | disposition home or self-care (01) ==
LOC: ED 01:21
PROVIDERS: Emergency Provider Emergency Medicine
DX: B34.9 Viral infection, unspecified (principal); F17.200 Nicotine dependence, unspecified, uncomplicated; Z20.822 Contact with and (suspected) exposure to COVID-19
CPT/HCPCS: 71045; 87426; 99281; 99282

== ENCOUNTER 2020-11-30 05:21 | Observation (INO) | payer MEDICAID, SELFPAY ==
[2020-11-30] VITALS (13 sets, daily range): BP systolic 105–138; BP diastolic 56–82; PULSE 79–106; RESP 15–23; TEMP 36.3–36.6; O2SAT 95–99; BMI 22.3; BMI 23.0
--- NOTE | 2020-11-30 05:33 | EKG12_ITS ---
Test Reason : PALPS Blood Pressure : / mmHG Vent. Rate : 102 BPM Atrial Rate : 102 BPM P-R Int : 168 ms QRS Dur : 076 ms QT Int : 338 ms P-R-T Axes : 070 074 054 degrees QTc Int : 440 ms Sinus tachycardia Otherwise normal ECG Confirmed by NORIS WALL, BING ([id number]), school photograph editor JEROME RAYA ([id number]) on 12/04/2020 10:08:55 A M Referred By: OSCAR Confirmed By:LIBBY HAMM MD
[2020-11-30] MEDS: 0.9% Normal Saline 1,000 ML 1000 ML IV (05:41)
[2020-11-30 05:48] LABS: Absolute Lymphocyte Count 1.94 X10^3/uL (0.83-4.51); Absolute Neutrophil Count 7.3 X10^3/uL (2.0-7.7); Basophil# 0.03 X10^3/uL; Basophil% 0.3 % (0-1); Eosinophil# 0.16 X10^3/uL; Eosinophils% 1.6 % (0-5); Hematocrit 45.8 % (40-54); Hemoglobin 15.8 g/dL (13.0-16.5); Lymphocyte # 1.94 X10^3/ul (0.83-4.51); Lymphocyte % 18.9 % (19-41); Mean Corp Hgb Conc 34.5 g/dL (32-36); Mean Corpuscular Hgb 31.4 pg (27.0-32.0); Mean Corpuscular Volume 91.1 fL (80-94); Mean Platelet Vol. 10.2 fl (6.2-12.0); Monocyte# 0.82 X10^3/uL; NRBC Flagged by Analyzer 0 % (0-5); Neutrophil % 70.8 % (47-70); Platelet Count 317 K/mm3 (150-450); RBC Distribution Width CV 11.9 % (11.6-14.6); RBC Distribution Width SD 39.8 fl (35.1-43.9); Red Blood Count 5.03 M/mm3 (4.6-6.2); White Blood Count 10.3 K/mm3 (4.4-11.0)
--- NOTE | 2020-11-30 05:49 | RAD_ITS ---
STUDY: X-RAY CHEST REASON FOR EXAM: Male, 35 years old patient with chest pain, shortness of breath and dizziness. TECHNIQUE: Single AP portable view of the chest. COMPARISON: Chest radiograph dated 11/13/2020. FINDINGS: Cardiac monitoring leads are present. The lungs are clear and expanded. There is no demonstrated pleural abnormality. Normal size heart. Normal mediastinum and geena. Normal visualized pulmonary arteries. Normal visualized aortic arch and descending thoracic aorta. Normal visualized thoracic spine. Normal visualized ribs, clavicles, and shoulders. There is no demonstrated abnormality of the visualized soft tissue structures of the upper abdomen. RAD/Chest 1 View (Portable) IMPRESSION: No radiographic evidence of acute cardiopulmonary disease. Electronically Signed: Edelmira Rivera MD at 6:40 EDT , Service support ,
[2020-11-30 05:51] LABS: Bedside Glucose 489 mg/dL (70-110)
[2020-11-30 06:20] LABS: Anion Gap 19 (5-15); BUN 21 mg/dL (7-18); BUN/Creat Ratio 17.9 RATIO (10-20); Calcium,Total 9.3 mg/dL (8.5-10.1); Chloride 97 mmol/L (98-107); Creatinine, Serum 1.17 mg/dL (0.70-1.30); EST Glomerular Filtration Rate 76 mL/min (>60); Est Glom Filt Rate - Afr Amer 92 mL/min (>60); Estimated Creatinine Clearance 77.23 ml/min; Glucose 478 mg/dL (74-106); Magnesium 1.8 mg/dL (1.6-2.6); Phosphorus 3.3 mg/dL (2.5-4.9); Potassium 4.8 mmol/L (3.5-5.1); Sodium Level 133 mmol/L (136-145); Thyroid Stim Hormone (TSH) 1.07 uIU/mL (0.358-3.74)
--- NOTE | 2020-11-30 06:21 | ED.VIS.CHEST ---
HPI History of Present Illness Chief Complaint: Palpitations Narrative Narrative: 35-year-old male with no primary care physician. He reports that he has a history of type 1 diabetes mellitus and that he buys his insulin [id number] at [facility]. Patient reports he has chest pain that began approximate 45 minutes ago. States that it is a sharp, stabbing pain on the left side that radiates over toward the right. 710 at worst 5-10 currently. Is worsened by nothing including exertion, deep breaths, or movement. Is also relieved by nothing. States that he has been diaphoretic with this. He denies any nausea, vomiting, or shortness of breath. Patient reports that this chest pain was preceded by a racing heart rate. He reports that this is constant. It does not seem like it is jumping around skipping beats. States he is lightheaded with this. He is not passed out. States approximate 4 hours ago he took 4 headache pills that did have caffeine in them. However, it is not unusual for him to have that amount of caffeine. States that he typically drinks 5-6 energy drinks per day. He has not had any today. Patient reports that at 2:00 he checked his blood sugar and it was 146. Typically ranges between 82?220. [facility] Medical History Arthritis Back problem Bone fracture Diabetes mellitus type 1 Headache Neuropathy Sciatica Seasonal allergies Vision problems Vitamin deficiency Home Medications insulin NPH isoph U-100 human 100 unit/mL subcutaneous suspension 30 unit SUBCUT DAILY ml 11/27/20 [History Last Taken Unknown] insulin regular human 150 unit/1.5 mL injection syringe unit .ROUTE TID 11/27/20 [History Last Taken Unknown] Allergy/AdvReac Type Severity Reaction Status Date / Time Penicillins AdvReac Hives Verified 11/30/20 05:25 Family History Father Alcoholism Mother Arthritis Aunt Diabetes Social History Smoking Status: Current every day smoker alcohol intake: former substance use type: does not use ROS ROS ED Constitutional Constitutional ED: Denies chills, fever(s) or sweats Eyes Eyes: Denies change in vision ENT ENT ED: Denies sore throat Cardiovascular Cardiovascular: Reports chest pain and palpitations Respiratory/Chest Respiratory/Chest: Denies cough, dyspnea or dyspnea on exertion Gastrointestinal Gastrointestinal: Denies abdominal pain, diarrhea, melena, nausea or vomiting Genitourinary Genitourinary ED: Denies dysuria or urinary frequency Musculoskeletal Musculoskeletal: Denies myalgias Integumentary Denies rash Neurologic Neurologic: Denies headache(s), paresthesias or weakness EXAM Physical Exam Const Vital Signs: 11/30/20 05:21 11/30/20 05:26 11/30/20 05:44 Temperature 98 F Temperature Source Oral Pulse Rate 106 H Respiratory Rate 18 Respiratory Pattern Normal Blood Pressure 138/78 H Blood Pressure Mean 98 Pulse Ox 98 98 Oxygen Delivery Method Room Air Room Air Positive well nourished and well developed General Appearance ED: well developed HEENT Reports normocephalic and head/scalp atraumatic Eyes PERRL Neck no lymphadenopathy, supple and no JVD General: Negative for tenderness Resp normal respiratory effort and clear to auscultation bilaterally Cardio regular rhythm and no murmurs Rate: tachycardic GI normal to inspection, nondistended, normoactive bowel sounds and non-tender GI Narrative: No guarding, rebound, or peritoneal signs. Palpation: soft Back/Spine Back/Spine Narrative: Nontender. Extremity General Extremety ED: Negative for edema or tenderness General Extremity: Negative for edema Neuro oriented x3, CN's II-XII intact bilaterally and no sensory deficits noted Sensorium / Orientation: alert Motor Exam: strength 5/5 throughout Psych mental status grossly normal Skin no rashes or lesions noted Heart Score History: Slightly/Non-Suspicious ECG: Nonspecific Repolarization Age: </= 45 years Risk Factors: 1 or 2 Risk Factors Troponin: </= Normal Limit Score: 2 MDM MDM Lab Data Labs: Laboratory Results - last 24 hr 11/30/20 11/30/20 11/30/20 05:40 05:40 05:40 WBC 10.3 RBC 5.03 Hgb 15.8 Hct 45.8 MCV 91.1 MCH 31.4 MCHC 34.5 RDW Std Deviation 39.8 RDW Coeff of Marco Antonio 11.9 Plt Count 317 MPV 10.2 Immature Gran % (Auto) 0.400 Neut % (Auto) 70.8 H Lymph % (Auto) 18.9 L [place] % (Auto) 8.0 Eos % (Auto) 1.6 Baso % (Auto) 0.3 Absolute Neuts (auto) 7.3 Absolute Lymphs (auto) 1.94 Nucleated RBC % 0 Sodium 133 L Potassium 4.8 Chloride 97 L Carbon Dioxide 17.0 L Anion Gap 19 H BUN 21 H Creatinine 1.17 Estim Creat Clear Calc 77.23 Est GFR (MDRD) Af Amer 92 Est GFR (MDRD) Non-Af 76 BUN/Creatinine Ratio 17.9 Glucose 478 H* Calcium 9.3 Phosphorus 3.3 Magnesium 1.8 Troponin I < 0.015 TSH 1.07 Acetone Level POC Glucose 11/30/20 11/30/20 05:40 05:43 WBC RBC Hgb Hct MCV MCH MCHC RDW Std Deviation RDW Coeff of Marco Antonio Plt Count MPV Immature Gran % (Auto) Neut % (Auto) Lymph % (Auto) [place] % (Auto) Eos % (Auto) Baso % (Auto) Absolute Neuts (auto) Absolute Lymphs (auto) Nucleated RBC % Sodium Potassium Chloride Carbon Dioxide Anion Gap BUN Creatinine Estim Creat Clear Calc Est GFR (MDRD) Af Amer Est GFR (MDRD) Non-Af BUN/Creatinine Ratio Glucose Calcium Phosphorus Magnesium Troponin I TSH Acetone Level MODERATE H POC Glucose 489 H* Radiography Chest X-Ray - ED: 1 View, Read by ED Physician and Read by Radiologist Diagnostic Testing: Radiology Impression Chest X-Ray 11/30/20 05:49 IMPRESSION: No radiographic evidence of acute cardiopulmonary disease. Electronically Signed: Edelmira Rivera MD at 6:40 EDT , Service support , Chest x-ray shows no acute disease. EKG Initial EKG: Attestation: I personally reviewed and interpreted this EKG as follows: Interpretation: Sinus Tachycardia and Non-Specific ST Changes Comments: EKG is sinus tach at [address] changes. Treatment and Re-Evaluation Comments:: Emergency department course: Patient had an IV placed. Is given 2 L normal saline. He was given Zofran IV and started on an insulin drip. Treatment plan: Patient will be discussed the hospitalist. He will be admitted for further evaluation and treatment. Discharge Plan Triage Chief Complaint: Palpitations ED Provider: Kar Lyons Dx/Rx/DC Orders Clinical Impression: DKA (diabetic ketoacidoses), Palpitations, Chest pain Prescriptions: No Action insulin regular human 150 unit/1.5 mL syringe .Route TID RF: 0 Novolin N NPH U-100 Insulin 100 unit/mL suspension 30 unit subcut DAILY RF: 0 Primary Care Provider: Care Physician,No Primary Referrals: Care Physician,No Primary [Primary Care Provider] -
[2020-11-30] MEDS: Ondansetron 4 MG/2 ML Vial IV (06:38)
[2020-11-30 06:52] LABS: D-Dimer Quantitative (DVT/PE) <= 0.27 FEU/ug/m (0.27-0.49)
[2020-11-30] MEDS: 0.9% Normal Saline 1,000 ML 999 ML IV (06:58)
[2020-11-30 07:00] LABS: Bedside Glucose 434 mg/dL (70-110)
--- NOTE | 2020-11-30 07:07 | NURSING ---
dr lisa loaiza
--- NOTE | 2020-11-30 07:07 | NURSING ---
ICU DKA KITTOE
--- NOTE | 2020-11-30 07:14 | HP.PCM.HOS_ITS ---
[facility] - General General Date of Admission: 11/30/20 Chief Complaint: Palpitation HPI Narrative TIO BOWLING, is a 35 M who presents with palpitations. His medical history is again for diabetes mellitus type 1. Patient states he forgot to take his insulin last night prior to going to work. Around 5 AM on the morning of his presentation he developed palpitations. Patient in addition did develop throat and chest discomfort as well as generalized weakness in addition to nausea. He asked to be evaluated in the ED. His evaluation in the ED was consistent with DKA treatment initiated per protocol admitted to the intensive care unit for further management [facility] Medical History Arthritis Back problem Bone fracture Diabetes mellitus type 1 Headache Neuropathy Sciatica Seasonal allergies Vision problems Vitamin deficiency Home Medications insulin NPH isoph U-100 human 100 unit/mL subcutaneous suspension 30 unit SUBCUT DAILY ml 11/27/20 [History Last Taken Unknown] insulin regular human 150 unit/1.5 mL injection syringe unit .ROUTE TID 11/27/20 [History Last Taken Unknown] Allergy/AdvReac Type Severity Reaction Status Date / Time Penicillins AdvReac Hives Verified 11/30/20 05:25 Family History Father Alcoholism Mother Arthritis Aunt Diabetes Social History Smoking Status: Current every day smoker alcohol intake: former substance use type: does not use ROS ROS Narrative GENERAL: denies fever, chills, HEENT: denies headache, sinus congestion, RESPIRATORY: denies cough, sputum production, CARDIAC: palpitations, GASTROINTESTINAL: nausea, vomiting GENITOURINARY: denies dysuria, urgency, frequency, EXTREMITY: denies swelling MUSCULOSKELETAL: denies current joint pain NEUROLOGIC: denies focal numbness, HEMATOLOGIC: denies easy bruising INTEGUMENT: denies rashes PSYCHIATRIC: denies suicidal Vital Signs Vital Signs Vital Signs: 11/30/20 05:21 11/30/20 05:26 11/30/20 05:44 Temperature 98 F Temperature Source Oral Pulse Rate 106 H Respiratory Rate 18 Respiratory Pattern Normal Blood Pressure 138/78 H Blood Pressure Mean 98 Pulse Ox 98 98 Oxygen Delivery Method Room Air Room Air Physical Exam Narrative GENERAL: cooperative HEENT: Atraumatic; EYES; Anicteric, Normal Conjunctiva NECK; supple, normal thyroid, RESPIRATORY: Diminished to auscultation CARDIOVASCULAR: Regular S1 S2, tachycardic GI: soft, normoactive bowel sounds, : No Renal angle tenderness; EXTREMITIES: No edema, no clubbing, MUSCULOSKELETAL: no muscle waisting NEURO: Awake; no lateralizing signs. SKIN: No Rash PSYCH; Flat affect Lab / Micro Data Result Diagrams: 11/30/20 05:40 11/30/20 08:35 Labs: Laboratory Results 11/30/20 05:40: WBC 10.3, RBC 5.03, Hgb 15.8, Hct 45.8, MCV 91.1, MCH 31.4, MCHC 34.5, RDW Std Deviation 39.8, RDW Coeff of Marco Antonio 11.9, Plt Count 317, MPV 10.2, Immature Gran % (Auto) 0.400, Neut % (Auto) 70.8 H, Lymph % (Auto) 18.9 L, [place] % (Auto) 8.0, Eos % (Auto) 1.6, Baso % (Auto) 0.3, Absolute Neuts (auto) 7.3, Absolute Lymphs (auto) 1.94, Nucleated RBC % 0 11/30/20 05:40: D-Dimer Quant (PE/DVT) <= 0.27 11/30/20 05:40: Sodium 133 L, Potassium 4.8, Chloride 97 L, Carbon Dioxide 17.0 L, Anion Gap 19 H, BUN 21 H, Creatinine 1.17, Estim Creat Clear Calc 77.23, Est GFR (MDRD) Af Amer 92, Est GFR (MDRD) Non-Af 76, BUN/Creatinine Ratio 17.9, Glucose 478 H*, Calcium 9.3, Troponin I < 0.015, TSH 1.07 11/30/20 05:40: Phosphorus 3.3, Magnesium 1.8 11/30/20 05:40: Acetone Level MODERATE H 11/30/20 05:40: Hemoglobin A1c Pending 11/30/20 05:43: POC Glucose 489 H* 11/30/20 06:54: POC Glucose 434 H 11/30/20 07:30: Magnesium Pending Radiology Impression Chest X-Ray 11/30/20 05:49 IMPRESSION: No radiographic evidence of acute cardiopulmonary disease. Electronically Signed: Edelmira Rivera MD at 6:40 EDT , Service support , Assessment & Plan Assessment/Plan (1) Palpitations: (2) Diabetes mellitus type 1: (3) DKA (diabetic ketoacidoses): PLAN: Patient is a 35-year-old gentleman with past medical history significant for diabetes mellitus type 1 presenting with diabetic ketoacidosis 1. Diabetic ketoacidosis ?Patient has been admitted to the intensive care unit currently being managed with aggressive IV fluid resuscitation systemic insulin and correction of electrolytes abnormalities. Patient progress is being monitored by every 4 BMPs 2. Diabetes mellitus type 1 ?Patient is on long-acting insulin presented in DKA management as discussed above 3. Palpitations ?Most likely secondary to patient's DKA patient was deemed to be dehydrated currently being resuscitated with IV fluids. Initial set of cardiac enzymes EKG unremarkable 4. Diabetic neuropathy Per history 5. DVT prophylaxis ?Low risk did encourage early ambulation Visit Charges Inpatient E&M: 42257 Init Hosp L3
--- NOTE | 2020-11-30 07:31 | NURSING ---
ICU 5
[2020-11-30 07:40] LABS: Bedside Glucose 405 mg/dL (70-110)
[2020-11-30 08:00] LABS: Magnesium 1.8 mg/dL (1.6-2.6)
[2020-11-30] MEDS: 0.9% Normal Saline 1,000 ML 500 ML IV (08:48)
[2020-11-30 08:53] LABS: Hemoglobin A1c 9.9 % (3.8-5.6)
[2020-11-30 09:02] LABS: Hemoglobin A1c 10.1 % (3.8-5.6)
[2020-11-30 09:29] LABS: AST(SGOT) 7 U/L (15-37); Alanine Aminotransfer ALT/SGPT 16 U/L (16-61); Albumin, Serum 1.9 g/dL (3.2-5.0); Alkaline Phosphatase 43 U/L (45-117); Anion Gap 10 (5-15); BUN 12 mg/dL (7-18); BUN/Creat Ratio 28.9 RATIO (10-20); Bilirubin, Direct 0.11 mg/dL (0.00-0.30); Chloride 123 mmol/L (98-107); Creatinine, Serum 0.42 mg/dL (0.70-1.30); EST Glomerular Filtration Rate 251 mL/min (>60); Est Glom Filt Rate - Afr Amer 304 mL/min (>60); Estimated Creatinine Clearance 217.61 ml/min; Globulin 1.8 g/dL (2.2-4.2); Glucose 212 mg/dL (74-106); Potassium 2.4 mmol/L (3.5-5.1); Protein, Total 3.7 g/dL (6.4-8.2); Sodium Level 146 mmol/L (136-145)
[2020-11-30 09:55] LABS: Calcium,Total < 5.0 mg/dL (8.5-10.1)
[2020-11-30 10:01] LABS: Bedside Glucose 245 mg/dL (70-110)
[2020-11-30 10:01] LABS: Bedside Glucose 225 mg/dL (70-110)
[2020-11-30 10:01] LABS: Bedside Glucose 326 mg/dL (70-110)
[2020-11-30] MEDS: Potassium Chloride 40 MEQ in 0.45% Normal Saline 1,000 ML 150 MEQ IV (10:18)
--- NOTE | 2020-11-30 10:43 | CASEMGMT ---
RN MAIRA PAINTER FOREMAN CM to room to meet with patient for initial transition planning/care coordination assessment. RODERICK RAO introduced self and role at [facility]. Pt voices understanding and consents to assessment at this time. Pt resting in bed in no distress at this time. Pt is A/O at this time and answers all questions appropriately. Care providers, pharmacy, and demographics verified/updated at this time. PCP: No PCP. States he was going to [facility]. Pt states he missed 2 appts and they dropped me. Pt provided w/list of local PCP's. RODERICK RAO advised pt to get established w/new PCP. Specialists: Has 1st appt scheduled w/Dr Ivan-endocrinology, in February. Preferred Pharmacy: [facility] Insurance: [employer] Prescription Benefit: Yes Living Will/HPOA: Pt does not currently have LW/HCPOA and declines info at this time. Pt made aware that he can contact [facility] as an out-pt and make appt in the future if he decides he would like to talk with someone about this or would like to utilize [facility] social work for advanced directive completion. Given [employer] Officer Rac card with information and contact number. Pt expresses understanding. LNOK: , Jackie. Pt states, though, that he thinks they will be getting a divorce. Living Arrangements: Was living w/ and her 3 children, but states plans to go to his brothers @ discharge. Independent. Transportation: Pt states drives self and states no transportation concerns at this time. Friend will take him to his brothers @ d/c. DME: Has a glucometer that is working properly and he has all the needed supplies. Denies need for other DME HHC/SNF: No history of either. No needs identified. Pt wishes to return home and states has no concerns with going home at time of discharge. Pt states he smokes 1/2 PPD. Does not drink ETOH. CM to follow for any further discharge planning/needs. Pt voices no further concerns/needs at this time. Advised pt to ask for CM if any further questions/concerns/needs arise. Voices understanding. PLAN: Home to brother's house and discharge plans in place. Puja BORJAS RN, CM
[2020-11-30] MEDS: Insulin Lispro 100 UNIT/ML INSULN.PEN SC ×2 (10:45→10:46)
[2020-11-30 10:51] LABS: Bedside Glucose 254 mg/dL (70-110)
[2020-11-30] MEDS: Potassium Chloride Oral Tablet 20 MEQ 40 MEQ PO (11:42)
[2020-11-30 13:53] LABS: Anion Gap 11 (5-15); BUN 14 mg/dL (7-18); BUN/Creat Ratio 17.3 RATIO (10-20); Calcium,Total 7.7 mg/dL (8.5-10.1); Chloride 108 mmol/L (98-107); Creatinine, Serum 0.81 mg/dL (0.70-1.30); EST Glomerular Filtration Rate 117 mL/min (>60); Est Glom Filt Rate - Afr Amer 141 mL/min (>60); Estimated Creatinine Clearance 112.83 ml/min; Glucose 267 mg/dL (74-106); Potassium 4.7 mmol/L (3.5-5.1); Sodium Level 137 mmol/L (136-145)
[2020-11-30] MEDS: Calcium Gluconate 1 GM/10 ML Vial IV (14:39)
[2020-11-30] MEDS: Calcium (Elemental) 500 MG Tablet PO (14:40)
--- NOTE | 2020-11-30 15:08 | PCM.DC.SUM ---
Providers Date of Admission: 11/30/20 Primary Care Physician: Belinda Primary Care Phys Reason For Visit: DKA Diagnosis Discharge Diagnosis (1) Palpitations: Status: Acute Code(s): R00.2 - Palpitations (2) Diabetes mellitus type 1: Status: Chronic Code(s): E10.9 - Type 1 diabetes mellitus without complications (3) DKA (diabetic ketoacidoses): Status: Acute Code(s): E13.10 - Other specified diabetes mellitus with ketoacidosis without coma Medications at Discharge Home Medications insulin NPH isoph U-100 human 100 unit/mL subcutaneous suspension 30 unit SUBCUT DAILY ml 11/27/20 insulin regular human 150 unit/1.5 mL injection syringe unit .ROUTE TID 11/27/20 calcium carbonate [Oyster Shell Calcium 500] 500 mg PO BID #60 tab 11/30/20 pantoprazole [Protonix] 40 mg PO DAILY #90 tab 11/30/20 potassium chloride 20 meq PO BID #60 tab 11/30/20 Hospital Course Operations None Procedures None Summary of Care Provided Minutes Spent on Discharge: 80 Hospital Course: Patient is a 35-year-old gentleman with past medical history significant for diabetes mellitus type 1 presenting with diabetic ketoacidosis 1.? Diabetic ketoacidosis ?Patient has been admitted to the intensive care unit currently being managed with aggressive IV fluid resuscitation systemic insulin and correction of electrolytes abnormalities.? Patient progress is being monitored by every 4 BMPs -Patient DKA did resolve. Patient was expected to stay for at least 2 midnight however he did improve rather rapidly than expected. He requested to be discharged. He was discharged home with follow-up scheduled with Dr. Wojciech Ivan with endocrinology. 2.? Diabetes mellitus type 1 ?Patient is on long-acting insulin presented in DKA management as discussed above 3.? Palpitations ?Most likely secondary to patient's DKA patient was deemed to be dehydrated currently being resuscitated with IV fluids.? Initial set of cardiac enzymes EKG unremarkable 4.? Diabetic neuropathy Per history 5.? DVT prophylaxis ?Low risk did encourage early ambulation 6. Hypokalemia per protocol - 7. Hypocalcemia -corrected per protocol Physical Exam Narrative GENERAL: cooperative HEENT: Atraumatic; EYES; Anicteric, Normal Conjunctiva NECK; supple, normal thyroid, RESPIRATORY: Diminished to auscultation CARDIOVASCULAR:? Regular S1 S2, GI:? soft, normoactive bowel sounds, : No Renal angle tenderness; EXTREMITIES:? No edema, no clubbing, MUSCULOSKELETAL:? no muscle waisting NEURO:? Awake;? no lateralizing signs. SKIN:? No Rash PSYCH; Flat? affect ABG / Lab / Microbiology Data Result Diagrams: 11/30/20 05:40 11/30/20 12:15 Laboratory: Laboratory Results - last 24 hr 11/30/20 11/30/20 11/30/20 05:40 05:40 05:40 WBC 10.3 RBC 5.03 Hgb 15.8 Hct 45.8 MCV 91.1 MCH 31.4 MCHC 34.5 RDW Std Deviation 39.8 RDW Coeff of Marco Antonio 11.9 Plt Count 317 MPV 10.2 Immature Gran % (Auto) 0.400 Neut % (Auto) 70.8 H Lymph % (Auto) 18.9 L Gregg % (Auto) 8.0 Eos % (Auto) 1.6 Baso % (Auto) 0.3 Absolute Neuts (auto) 7.3 Absolute Lymphs (auto) 1.94 Nucleated RBC % 0 D-Dimer Quant (PE/DVT) <= 0.27 Sodium 133 L Potassium 4.8 Chloride 97 L Carbon Dioxide 17.0 L Anion Gap 19 H BUN 21 H Creatinine 1.17 Estim Creat Clear Calc 77.23 Est GFR (MDRD) Af Amer 92 Est GFR (MDRD) Non-Af 76 BUN/Creatinine Ratio 17.9 Glucose 478 H* Hemoglobin A1c Calcium 9.3 Phosphorus Magnesium Total Bilirubin Direct Bilirubin AST ALT Alkaline Phosphatase Troponin I < 0.015 Total Protein Albumin Globulin TSH 1.07 Acetone Level POC Glucose 11/30/20 11/30/20 11/30/20 05:40 05:40 05:40 WBC RBC Hgb Hct MCV MCH MCHC RDW Std Deviation RDW Coeff of Marco Antonio Plt Count MPV Immature Gran % (Auto) Neut % (Auto) Lymph % (Auto) Gregg % (Auto) Eos % (Auto) Baso % (Auto) Absolute Neuts (auto) Absolute Lymphs (auto) Nucleated RBC % D-Dimer Quant (PE/DVT) Sodium Potassium Chloride Carbon Dioxide Anion Gap BUN Creatinine Estim Creat Clear Calc Est GFR (MDRD) Af Amer Est GFR (MDRD) Non-Af BUN/Creatinine Ratio Glucose Hemoglobin A1c 9.9 H Calcium Phosphorus 3.3 Magnesium 1.8 Total Bilirubin Direct Bilirubin AST ALT Alkaline Phosphatase Troponin I Total Protein Albumin Globulin TSH Acetone Level MODERATE H POC Glucose 11/30/20 11/30/20 11/30/20 05:40 05:43 06:54 WBC RBC Hgb Hct MCV MCH MCHC RDW Std Deviation RDW Coeff of Marco Antonio Plt Count MPV Immature Gran % (Auto) Neut % (Auto) Lymph % (Auto) Gregg % (Auto) Eos % (Auto) Baso % (Auto) Absolute Neuts (auto) Absolute Lymphs (auto) Nucleated RBC % D-Dimer Quant (PE/DVT) Sodium Potassium Chloride Carbon Dioxide Anion Gap BUN Creatinine Estim Creat Clear Calc Est GFR (MDRD) Af Amer Est GFR (MDRD) Non-Af BUN/Creatinine Ratio Glucose Hemoglobin A1c 10.1 H Calcium Phosphorus Magnesium Total Bilirubin Direct Bilirubin AST ALT Alkaline Phosphatase Troponin I Total Protein Albumin Globulin TSH Acetone Level POC Glucose 489 H* 434 H 11/30/20 11/30/20 11/30/20 07:30 07:37 08:11 WBC RBC Hgb Hct MCV MCH MCHC RDW Std Deviation RDW Coeff of Marco Antonio Plt Count MPV Immature Gran % (Auto) Neut % (Auto) Lymph % (Auto) Gregg % (Auto) Eos % (Auto) Baso % (Auto) Absolute Neuts (auto) Absolute Lymphs (auto) Nucleated RBC % D-Dimer Quant (PE/DVT) Sodium Potassium Chloride Carbon Dioxide Anion Gap BUN Creatinine Estim Creat Clear Calc Est GFR (MDRD) Af Amer Est GFR (MDRD) Non-Af BUN/Creatinine Ratio Glucose Hemoglobin A1c Calcium Phosphorus Magnesium 1.8 Total Bilirubin Direct Bilirubin AST ALT Alkaline Phosphatase Troponin I Total Protein Albumin Globulin TSH Acetone Level POC Glucose 405 H 326 H 11/30/20 11/30/20 11/30/20 08:35 09:08 09:57 WBC RBC Hgb Hct MCV MCH MCHC RDW Std Deviation RDW Coeff of Marco Antonio Plt Count MPV Immature Gran % (Auto) Neut % (Auto) Lymph % (Auto) Gregg % (Auto) Eos % (Auto) Baso % (Auto) Absolute Neuts (auto) Absolute Lymphs (auto) Nucleated RBC % D-Dimer Quant (PE/DVT) Sodium 146 H Potassium 2.4 L* Chloride 123 H Carbon Dioxide 13.0 L Anion Gap 10 BUN 12 Creatinine 0.42 L Estim Creat Clear Calc 217.61 Est GFR (MDRD) Af Amer 304 Est GFR (MDRD) Non-Af 251 BUN/Creatinine Ratio 28.9 H Glucose 212 H Hemoglobin A1c Calcium < 5.0 L* Phosphorus Magnesium Total Bilirubin 0.30 Direct Bilirubin 0.11 AST 7 L ALT 16 Alkaline Phosphatase 43 L Troponin I Total Protein 3.7 L Albumin 1.9 L Globulin 1.8 L TSH Acetone Level POC Glucose 245 H 225 H 11/30/20 11/30/20 11/30/20 10:42 11:45 12:15 WBC RBC Hgb Hct MCV MCH MCHC RDW Std Deviation RDW Coeff of Marco Antonio Plt Count MPV Immature Gran % (Auto) Neut % (Auto) Lymph % (Auto) Gregg % (Auto) Eos % (Auto) Baso % (Auto) Absolute Neuts (auto) Absolute Lymphs (auto) Nucleated RBC % D-Dimer Quant (PE/DVT) Sodium Cancelled 137 Potassium Cancelled 4.7 Chloride Cancelled 108 H Carbon Dioxide Cancelled 18.0 L Anion Gap Cancelled 11 BUN Cancelled 14 Creatinine Cancelled 0.81 Estim Creat Clear Calc Cancelled 112.83 Est GFR (MDRD) Af Amer Cancelled 141 Est GFR (MDRD) Non-Af Cancelled 117 BUN/Creatinine Ratio Cancelled 17.3 Glucose Cancelled 267 H Hemoglobin A1c Calcium Cancelled 7.7 L Phosphorus Magnesium Total Bilirubin Direct Bilirubin AST ALT Alkaline Phosphatase Troponin I Total Protein Albumin Globulin TSH Acetone Level POC Glucose 254 H Radiography Diagnostic Testing: Radiology Impression Chest X-Ray 11/30/20 05:49 IMPRESSION: No radiographic evidence of acute cardiopulmonary disease. Electronically Signed: Edelmira Rivera MD at 6:40 EDT , Service support , D/C Instructions Discharge Diet: 1800 Calorie Control Diet Discharge Activity: Return to Normal Activity Meaningful Use Info Meaningful Use Diagnoses (Choose all that apply): None applicable Discharge Plan Admission Admit Date/Time: 11/30/20 07:12 Primary Reason for Your Visit: Diabetic ketoacidosis Attending Provider: Sanjay Francois Primary Care Provider: Care Physician,No Primary Discharge Orders/Prescriptions Prescriptions: New pantoprazole [Protonix] 40 mg tablet,delayed release (DR/EC) 40 mg PO DAILY Qty: 90 RF: 0 calcium carbonate [Oyster Shell Calcium 500] 500 mg calcium (1,250 mg) Tablet 500 mg PO BID Qty: 60 RF: 0 potassium chloride 20 mEq tablet extended release 20 meq PO BID Qty: 60 RF: 0 Continued insulin regular human 150 unit/1.5 mL syringe .Route TID RF: 0 Novolin N NPH U-100 Insulin 100 unit/mL suspension 30 unit subcut DAILY RF: 0 Referrals / Follow Up: Wojciech Ivan MD [STAFF PHYSICIAN] - 12/03/20 10:30 am Care Physician,No Primary [Primary Care Provider] - Disposition Disposition (needs filled in before D/C Order can be placed): Home, self care Visit Charges OBSV E&M: 38407 Observ/hosp same date L3
--- NOTE | 2020-11-30 15:44 | PCM.DC ---
Discharge Instructions Diet Discharge Diet: 1800 Calorie Control Diet Activity Discharge Activity: Return to Normal Activity Dressing / Incision Call your doctor if you observe: Fever of 101 or Higher, Shortness of breath, Fainting spells and Chest pain Follow Up Care Test Results: Test results from this visit will be discussed in further detail at your follow-up appointment, if applicable. Discharge Plan Admission Admit Date/Time: 11/30/20 07:12 Primary Reason for Your Visit: Diabetic ketoacidosis Attending Provider: Sanjay Francois Primary Care Provider: Care Physician,No Primary Discharge Orders/Prescriptions Prescriptions: New pantoprazole [Protonix] 40 mg tablet,delayed release (DR/EC) 40 mg PO DAILY Qty: 90 RF: 0 calcium carbonate [Oyster Shell Calcium 500] 500 mg calcium (1,250 mg) Tablet 500 mg PO BID Qty: 60 RF: 0 potassium chloride 20 mEq tablet extended release 20 meq PO BID Qty: 60 RF: 0 Continued insulin regular human 150 unit/1.5 mL syringe .Route TID RF: 0 Novolin N NPH U-100 Insulin 100 unit/mL suspension 30 unit subcut DAILY RF: 0 Referrals / Follow Up: Wojciech Ivan MD [STAFF PHYSICIAN] - 12/03/20 10:30 am Care Physician,No Primary [Primary Care Provider] - Disposition Disposition (needs filled in before D/C Order can be placed): Home, self care
--- NOTE | 2020-12-03 10:36 | CASEMGMT ---
RODERICK RAO Discharge Follow Up Phone Call: [place]: Rossana Strata:3 Call Date: 12.03.20 Discharge Date: 11.30.20 Time of Call:1036 Duration: <1 min Admitting Dx: DKA RODERICK RAO attempted to complete follow up phone call after recent hospitalization. No answer, left message with call back information.
== END 2020-11-30 16:00 | disposition home or self-care (01) ==
LOC: ED 05:49 → ICU 15:04
PROVIDERS: Admitting Provider Internal Medicine; Emergency Provider Emergency Medicine; Visit Provider Internal Medicine
DX: E10.10 Type 1 diabetes mellitus with ketoacidosis without coma (principal); E10.40 Type 1 diabetes mellitus with diabetic neuropathy, unspecified; R00.2 Palpitations; M19.90 Unspecified osteoarthritis, unspecified site; E86.0 Dehydration; E87.6 Hypokalemia; E83.51 Hypocalcemia; Z79.4 Long term (current) use of insulin; Z87.891 Personal history of nicotine dependence
CPT/HCPCS: 71045; 80048; 80076; 82009; 82962; 83036; 83735; 84100; 84443; 84484; 85025; 85379; 93005; 96361; 96365; 96366; 96367; 96368; 96375; 97802; 99251; 99285; J7030; A4216; G0463; J0610; J2405

== ENCOUNTER 2021-10-02 09:24 | Outpatient (CLI) | payer MEDICAID, SELFPAY ==
[2021-10-02 12:43] LABS: Vitamin D,25 Hydroxy 11.7 ng/mL
[2021-10-02 12:55] LABS: AST(SGOT) 39 U/L (15-37); Alanine Aminotransfer ALT/SGPT 59 U/L (16-61); Albumin, Serum 3.9 g/dL (3.2-5.0); Alkaline Phosphatase 109 U/L (45-117); Anion Gap 8 (5-15); BUN 17 mg/dL (7-18); BUN/Creat Ratio 20.7 RATIO (10-20); Calcium,Total 8.9 mg/dL (8.5-10.1); Chloride 102 mmol/L (98-107); Cholesterol 200 mg/dL (200); Creatinine, Serum 0.82 mg/dL (0.70-1.30); EST Glomerular Filtration Rate 114 mL/min (>60); Est Glom Filt Rate - Afr Amer 137 mL/min (>60); Globulin 3.8 g/dL (2.2-4.2); Glucose 264 mg/dL (74-106); High Density Lipoprotein 50 mg/dL; Potassium 4.3 mmol/L (3.5-5.1); Protein, Total 7.7 g/dL (6.4-8.2); Sodium Level 133 mmol/L (136-145); Thyroid Stim Hormone (TSH) 1.67 uIU/mL (0.358-3.74); Triglycerides 84 mg/dL; Very Low Density Lipoprotein 17 mg/dL (5-40)
[2021-10-02 13:15] LABS: Microalbumin,Random Urine 16.4 mg/L (NO RANGE EST.); Microalbumin:Creatinine Ratio 19.5 mg/g CRE (<30 mg/g CRE)
[2021-10-03 13:13] LABS: C-Peptide < 0.1 ng/mL (1.1-4.4)
== END 2021-10-02 23:59 | disposition home or self-care (01) ==
LOC: BIMLAB 09:25
PROVIDERS: Referring Provider Nurse Practitioner Family; Visit Provider Nurse Practitioner Family
DX: E10.9 Type 1 diabetes mellitus without complications (principal)
CPT/HCPCS: 36415; 80053; 80061; 82043; 82306; 82570; 84443; 84681

== ENCOUNTER 2021-12-31 07:28 | Emergency (ER) | payer MEDICAID, SELFPAY ==
[2021-12-31 07:29] VITALS: BP 109/86; PULSE 106; RESP 16; TEMP 36.8; O2SAT 97; BMI 23.6
--- NOTE | 2021-12-31 08:06 | ED.VIS.BACK ---
HPI History of Present Illness Chief Complaint: Back Informant: patient Onset/Context/Timing Onset: Today Context: Sudden Onset Timing: Continuous Quality: Sharp and Aching Location: Lumbar Worsened by: improves with Nothing Relieved by: Nothing Associated Symptoms Associated Symptoms: Radiation to Right Leg, Radiation to Left Leg and Fever; Negative for Numbness, Tingling, Abdominal Pain, Dysuria, Unable to Ambulate, Unable to Transfer, Urinary Retention, Urinary Incontinence, Constipation or Fecal Incontinence Narrative Narrative: Patient presents with back pain that began earlier this morning. Patient states it woke him up out of his sleep. Patient states it began rather suddenly. Patient denies any trauma or injury. Patient states it has been constant. Patient describes it as sharp and aching. Patient states it is over the lower lumbar area and radiates down both lower extremities. Patient states nothing makes it better nothing makes it worse. Patient states he noticed his blood sugars were increased yesterday but he took insulin last night. Patient states he feels like his blood sugars are better today. Patient admits to some subjective fevers. Patient also admits to a headache. [facility] Medical History Arthritis Back problem Bone fracture Diabetes Diabetes mellitus type 1 Headache Neuropathy Sciatica Seasonal allergies Vision problems Vitamin deficiency Home Medications insulin NPH isoph U-100 human 100 unit/mL subcutaneous suspension (Novolin N NPH U-100 Insulin isophane) 30 unit subcut DAILY 11/27/20 [History Last Taken Unknown] insulin regular human 150 unit/1.5 mL injection syringe unit .Route TID 11/27/20 [History Last Taken Unknown] calcium carbonate 500 mg calcium (1,250 mg) tablet (Oyster Shell Calcium 500) 500 mg PO BID #60 tabs 11/30/20 [Rx Last Taken Unknown] pantoprazole 40 mg tablet,delayed release (Protonix) 40 mg PO DAILY #90 tabs 11/30/20 [Rx Last Taken Unknown] potassium chloride 20 mEq tablet,extended release 20 meq PO BID #60 tabs 11/30/20 [Rx Last Taken Unknown] blood sugar diagnostic (True Metrix Glucose Test Strip) #150 ea 12/03/20 [Rx Last Taken Unknown] blood-glucose meter (True Metrix Glucose Meter) #1 ea 12/03/20 [Rx Last Taken Unknown] Levemir FlexTouch U-100 Insuln 100 unit/mL (3 mL) subcutaneous pen (insulin detemir U-100) 20 unit (0.2 mL) subcut QHS #18 mL 10/02/21 [Rx Last Taken Unknown] cholecalciferol (vitamin D3) 1,250 mcg (50,000 unit) capsule 1,250 mcg PO QWEEK #12 caps 10/02/21 [Rx Last Taken Unknown] insulin aspart U-100 100 unit/mL (3 mL) subcutaneous pen (Novolog Flexpen U-100 Insulin aspart) 10 unit (0.1 mL) subcut TID #27 mL 10/02/21 [Rx Last Taken Unknown] lancets 30 gauge (1st Tier Unilet ComforTouch Lancet) #360 ea 10/02/21 [Rx Last Taken Unknown] pen needle, diabetic 31 gauge x 5/16 (1st Tier Unifine Pentips Plus) #360 ea 10/02/21 [Rx Last Taken Unknown] rosuvastatin 5 mg tablet 5 mg PO DAILY #90 tabs 10/02/21 [Rx Last Taken Unknown] Allergy/AdvReac Type Severity Reaction Status Date / Time Penicillins AdvReac Hives Verified 12/31/21 07:28 Family History Father Alcoholism Mother Arthritis Aunt Diabetes Social History Smoking Status: Current every day smoker tobacco type: cigarettes alcohol intake: former substance use type: does not use ROS ROS ED Constitutional Constitutional ED: Reports fever(s) and subjective; Denies chills Eyes Eyes: Denies blurry vision or change in vision ENT ENT ED: Reports sore throat; Denies rhinorrhea Cardiovascular Cardiovascular: Denies chest pain or palpitations Respiratory/Chest Respiratory/Chest: Denies cough or dyspnea Gastrointestinal Gastrointestinal: Denies nausea or vomiting Genitourinary Genitourinary ED: Denies dysuria or hematuria Musculoskeletal Musculoskeletal: Reports back pain; Denies neck pain Integumentary Denies abscess or rash Neurologic Neurologic: Reports headache(s); Denies weakness Allergic/Immunologic Allergic/Immunologic ED: Denies mouth swelling or urticaria EXAM Physical Exam Const Vital Signs: 12/31/21 07:29 Temperature 98.3 F Temperature Source Temporal Pulse Rate 106 H Respiratory Rate 16 Blood Pressure 109/86 H Blood Pressure Mean 93 Pulse Ox 97 Oxygen Delivery Method Room Air Positive well nourished and well developed General Appearance ED: well developed HEENT Reports moist mucous membranes Neck supple and no JVD Resp normal respiratory effort and clear to auscultation bilaterally Cardio regular rhythm and no murmurs Rate: tachycardic GI normal to inspection, nondistended, normoactive bowel sounds and non-tender Palpation: soft Back/Spine Back/Spine Narrative: There is mild tenderness over the lumbar paraspinal muscles bilaterally. There is no edema or ecchymosis. There is no bony crepitance or step-off. There is good range of motion. Straight leg raises were negative bilaterally. Strength is 5/5 bilaterally in lower extremities. There are no sensory deficits noted. Lumbar Spine / Lower Back: straight leg raise negative bilaterally Extremity normal to inspection General Extremety ED: Negative for edema or tenderness General Extremity: Negative for edema Neuro oriented x3, CN's II-XII intact bilaterally and no sensory deficits noted Sensorium / Orientation: alert Motor Exam: strength 5/5 throughout Psych mental status grossly normal Skin no rashes or lesions noted MDM MDM MDM Narrative Medical decision making narrative: Patient was given IV fluids. Patient was given Reglan, Benadryl, and Toradol. CBC was within normal limits. Comprehensive metabolic profile was within normal limits. Serum acetone was negative. Urinalysis shows some glucosuria but does not show any evidence of urinary tract infection or hematuria. Patient was advised of his findings. Patient is feeling better on reevaluation. Patient was instructed to follow-up with his primary care physician in 5 to 7 days. Patient was instructed to take Tylenol or ibuprofen as needed for pain. Patient understood and was agreeable with the plan. All questions were answered. Lab Data Attestation: I reviewed the patient's lab results. Labs: Laboratory Results - last 24 hr 12/31/21 12/31/21 12/31/21 08:18 08:18 08:18 WBC 6.8 RBC 5.26 Hgb 16.3 Hct 47.3 MCV 89.9 MCH 31.0 MCHC 34.5 RDW Std Deviation 38.8 RDW Coeff of Marco Antonio 11.8 Plt Count 268 MPV 9.8 Immature Gran % (Auto) 0.300 Neut % (Auto) 71.0 H Lymph % (Auto) 14.5 L Jerome % (Auto) 11.0 H Eos % (Auto) 2.6 Baso % (Auto) 0.6 Absolute Neuts (auto) 4.9 Absolute Lymphs (auto) 0.99 Nucleated RBC % 0 Sodium 138 Potassium 4.0 Chloride 105 Carbon Dioxide 27.0 Anion Gap 6 BUN 16 Creatinine 0.94 Estim Creat Clear Calc 96.32 Est GFR (MDRD) Af Amer 118 Est GFR (MDRD) Non-Af 98 BUN/Creatinine Ratio 17.1 Glucose 74 Calcium 9.2 Total Bilirubin 0.40 AST 26 ALT 63 H Alkaline Phosphatase 82 Total Protein 7.8 Albumin 4.0 Globulin 3.8 Albumin/Globulin Ratio 1.1 Urine Color Urine Clarity Urine pH Ur Specific [place] Urine Protein Urine Glucose (UA) Urine Ketones Urine Occult Blood Urine Nitrite Urine Bilirubin Urine Urobilinogen Ur Leukocyte Esterase Urine RBC Urine WBC Ur Squamous Epith Cells Urine Bacteria Urine Mucus Acetone Level NEGATIVE POC Glucose 12/31/21 12/31/21 08:21 08:44 WBC RBC Hgb Hct MCV MCH MCHC RDW Std Deviation RDW Coeff of Marco Antonio Plt Count MPV Immature Gran % (Auto) Neut % (Auto) Lymph % (Auto) Jerome % (Auto) Eos % (Auto) Baso % (Auto) Absolute Neuts (auto) Absolute Lymphs (auto) Nucleated RBC % Sodium Potassium Chloride Carbon Dioxide Anion Gap BUN Creatinine Estim Creat Clear Calc Est GFR (MDRD) Af Amer Est GFR (MDRD) Non-Af BUN/Creatinine Ratio Glucose Calcium Total Bilirubin AST ALT Alkaline Phosphatase Total Protein Albumin Globulin Albumin/Globulin Ratio Urine Color Yellow Urine Clarity Sl. Cloudy Urine pH 5.0 Ur Specific [place] 1.025 Urine Protein 15 H Urine Glucose (UA) 1000 H Urine Ketones 15 H Urine Occult Blood Negative Urine Nitrite Negative Urine Bilirubin 1 H Urine Urobilinogen 1 H Ur Leukocyte Esterase Negative Urine RBC 0 SEEN Urine WBC 0 SEEN Ur Squamous Epith Cells 0-5 SEEN Urine Bacteria 0 SEEN Urine Mucus 0 SEEN Acetone Level POC Glucose 77 Discharge Plan Triage Chief Complaint: Back ED Provider: Raghu Potts Dx/Rx/DC Orders Clinical Impression: Acute myofascial strain of lumbosacral region, Diabetes mellitus type 1 Instructions: ED Back Sprain/Strain Prescriptions: No Action insulin regular human 150 unit/1.5 mL syringe .Route TID Rx Instructions: sliding scale per patient Novolin N NPH U-100 Insulin 100 unit/mL suspension 30 unit subcut DAILY (DME) blood-glucose meter [True Metrix Glucose Meter] Misc See Rx Instructions .ROUTE .MEDSUPPLY Qty: 1 0RF Rx Instructions: As directed (DME) True Metrix Glucose Test Strip Strip See Rx Instructions .ROUTE .MEDSUPPLY Qty: 150 12RF Rx Instructions: 4 times daily insulin aspart U-100 [Novolog Flexpen U-100 Insulin] 100 unit/mL (3 mL) insulin pen 10 unit subcut TID Qty: 27 1RF Levemir FlexTouch U-100 Insuln 100 unit/mL (3 mL) insulin pen 20 unit subcut QHS Qty: 18 1RF (DME) pen needle, diabetic [1st Tier Unifine Pentips Plus] 31 gauge x 5/16 needle See Rx Instructions .ROUTE .MEDSUPPLY Qty: 360 1RF Rx Instructions: 4 times daily (DME) lancets [1st Tier Unilet ComforTouch] 30 gauge misc See Rx Instructions .ROUTE .MEDSUPPLY Qty: 360 1RF Rx Instructions: 4x/day pantoprazole [Protonix] 40 mg tablet,delayed release (DR/EC) 40 mg PO DAILY Qty: 90 0RF calcium carbonate [Oyster Shell Calcium 500] 500 mg calcium (1,250 mg) Tablet 500 mg PO BID Qty: 60 0RF potassium chloride 20 mEq tablet extended release 20 meq PO BID Qty: 60 0RF rosuvastatin 5 mg tablet 5 mg PO DAILY Qty: 90 3RF cholecalciferol (vitamin D3) 1,250 mcg (50,000 unit) capsule 1,250 mcg PO QWEEK Qty: 12 0RF Primary Care Provider: Alida Orr NP Referrals: Care Physician,No Primary [NON-STAFF] - Alida Orr NP, [facility]ER-[facility] [Primary Care Provider] - 5-7 Days Disposition Disposition: Home, Self Care
[2021-12-31] MEDS: 0.9% Normal Saline 1,000 ML 1000 ML IV (08:23)
[2021-12-31] MEDS: DiphenhydrAMINE 50 MG/ML Syringe 25 MG IV (08:24)
[2021-12-31] MEDS: Ketorolac 30 MG/ML Syringe IV (08:24)
[2021-12-31] MEDS: Metoclopramide 10 MG/2 ML Vial IV (08:24)
[2021-12-31 08:26] LABS: Bedside Glucose 77 mg/dL (74-106)
[2021-12-31 08:30] LABS: Absolute Lymphocyte Count 0.99 X10^3/uL (0.83-4.51); Absolute Neutrophil Count 4.9 X10^3/uL (2.0-7.7); Basophil# 0.04 X10^3/uL; Basophil% 0.6 % (0-1); Eosinophil# 0.18 X10^3/uL; Eosinophils% 2.6 % (0-5); Hematocrit 47.3 % (40-54); Hemoglobin 16.3 g/dL (13.0-16.5); Lymphocyte # 0.99 X10^3/ul (0.83-4.51); Lymphocyte % 14.5 % (19-41); Mean Corp Hgb Conc 34.5 g/dL (32-36); Mean Corpuscular Volume 89.9 fL (80-94); Mean Platelet Vol. 9.8 fl (6.2-12.0); Monocyte# 0.75 X10^3/uL; NRBC Flagged by Analyzer 0 % (0-5); Neutrophil # 4.86 X10^3/uL (2.7-7.7); Platelet Count 268 K/mm3 (150-450); RBC Distribution Width CV 11.8 % (11.6-14.6); RBC Distribution Width SD 38.8 fl (35.1-43.9); Red Blood Count 5.26 M/mm3 (4.6-6.2); White Blood Count 6.8 K/mm3 (4.4-11.0)
[2021-12-31 08:47] LABS: ALB/GLOB Ratio 1.1 RATIO (0.9-2.4); AST(SGOT) 26 U/L (15-37); Alanine Aminotransfer ALT/SGPT 63 U/L (16-61); Alkaline Phosphatase 82 U/L (45-117); Anion Gap 6 (5-15); BUN 16 mg/dL (7-18); BUN/Creat Ratio 17.1 RATIO (10-20); Calcium,Total 9.2 mg/dL (8.5-10.1); Chloride 105 mmol/L (98-107); Creatinine, Serum 0.94 mg/dL (0.70-1.30); EST Glomerular Filtration Rate 98 mL/min (>60); Est Glom Filt Rate - Afr Amer 118 mL/min (>60); Estimated Creatinine Clearance 96.32 ml/min; Globulin 3.8 g/dL (2.2-4.2); Glucose 74 mg/dL (74-106); Protein, Total 7.8 g/dL (6.4-8.2); Sodium Level 138 mmol/L (136-145)
[2021-12-31 08:54] LABS: Bacteria 0 SEEN /hpf (None Seen); Mucous, Urine 0 SEEN /hpf (<or=2+); Red Blood Cells-Urine 0 SEEN /hpf (0-5); White Blood Cells 0 SEEN /hpf (0-5)
[2021-12-31 09:05] LABS: Color, Urine Yellow (Yellow); Glucose, Dipstick 1000 mg/dl (Normal); Ketone-Dipstick 15 mg/dl (Negative); Leukocyte Esterase-Dipstick Negative /ul (Negative); Nitrite-Dipstick Negative (Negative); Occult Blood-Urine Negative /ul (Negative); Protein-Dipstick 15 mg/dl (Negative); Specific Gravity, Urine 1.025 (1.002-1.030); Urine Clarity Sl. Cloudy (Clear); Urine Urobilinogen 1 mg/dl (Normal)
[2021-12-31 09:07] LABS: Urine Bilirubin Dipstick 1 mg/dL (Negative)
[2021-12-31 09:16] LABS: Squamous Epithelial Cells - UA 0-5 SEEN /hpf (0-5)
[2021-12-31 10:28] VITALS: BP 129/88; PULSE 72; RESP 16; O2SAT 98
== END 2021-12-31 10:29 | disposition home or self-care (01) ==
PROVIDERS: Emergency Provider Emergency Medicine; PCP Nurse Practitioner Primary Care; Visit Provider Emergency Medicine
DX: S39.012A Strain of muscle, fascia and tendon of lower back, initial encounter (principal); E10.40 Type 1 diabetes mellitus with diabetic neuropathy, unspecified; Z79.4 Long term (current) use of insulin; X58.XXXA Exposure to other specified factors, initial encounter; F17.210 Nicotine dependence, cigarettes, uncomplicated
CPT/HCPCS: 80053; 81001; 82009; 82962; 85025; 96361; 96374; 96375; 99283; J7030; A4216

== ENCOUNTER → 2022-01-30 | Outpatient (CLI) | payer MEDICAID, SELFPAY ==
[2022-01-30 12:33] LABS: AST(SGOT) 37 U/L (15-37); Alanine Aminotransfer ALT/SGPT 58 U/L (16-61); Albumin, Serum 3.5 g/dL (3.2-5.0); Alkaline Phosphatase 64 U/L (45-117); Anion Gap 6 (5-15); BUN 14 mg/dL (7-18); BUN/Creat Ratio 18.1 RATIO (10-20); Calcium,Total 8.9 mg/dL (8.5-10.1); Chloride 108 mmol/L (98-107); Creatinine, Serum 0.77 mg/dL (0.70-1.30); EST Glomerular Filtration Rate 122 mL/min (>60); Est Glom Filt Rate - Afr Amer 147 mL/min (>60); Globulin 3.6 g/dL (2.2-4.2); Glucose 104 mg/dL (74-106); Potassium 4.2 mmol/L (3.5-5.1); Protein, Total 7.1 g/dL (6.4-8.2); Sodium Level 139 mmol/L (136-145)
[2022-01-30 12:37] LABS: Vitamin D,25 Hydroxy 114.8 ng/mL
== END | disposition home or self-care (01) ==
LOC: BIMLAB 10:05
PROVIDERS: PCP Nurse Practitioner Primary Care; Referring Provider Nurse Practitioner Family; Visit Provider Nurse Practitioner Family
DX: E11.9 Type 2 diabetes mellitus without complications (principal); E55.9 Vitamin D deficiency, unspecified
CPT/HCPCS: 36415; 80053; 82306

== ENCOUNTER 2023-06-22 09:27 | Emergency (ER) | payer MEDICAID, SELFPAY ==
[2023-06-22 09:28] VITALS: BP 134/81; PULSE 83; RESP 18; TEMP 35.9; O2SAT 99; BMI 22.8
--- NOTE | 2023-06-22 09:47 | EKG12_ITS ---
Test Reason : CP Blood Pressure : / mmHG Vent. Rate : 069 BPM Atrial Rate : 069 BPM P-R Int : 214 ms QRS Dur : 086 ms QT Int : 374 ms P-R-T Axes : 067 074 063 degrees QTc Int : 400 ms Sinus rhythm with 1st degree A-V block Otherwise normal ECG Confirmed by NORIS WALL, BING ([id number]), state editor BREE MARTINEZ ([id number]) on 06/29/2023 6:52:33 AM Referred By: Confirmed By:LIBBY HAMM MD
--- NOTE | 2023-06-22 09:48 | EDS_ITS ---
HPI History of Present Illness Chief Complaint: Back Informant: patient Narrative Narrative: 38-year-old male presenting to the emergency department with a chief complaint of back pain. Patient is a type I diabetic with insulin pump. He states his blood sugars have been doing quite well. Recently diagnosed with hepatitis C. He states that just after Thanksgiving he awoke 1 day with pain near the left shoulder blade. He states it initially was there radiating up towards his neck made worse with neck extension. He has no discomfort with neck rotation. It is also made worse when he lays down. He states that now he has a burning pain that starts in the left scapular region and radiates across in the rib like pattern to the front of his chest. He notes pain radiating down his posterior left arm. He denies any muscular weakness. No rashes. No fevers. He denies any shortness of breath. He went to the [facility] was referred to the emergency department as he is a diabetic. The patient denies any fever chills cough. 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 No known direct trauma. No DVT PE risk factors. [facility] Medical History Arthritis Back problem Bone fracture Diabetes mellitus type 1 Headache Neuropathy Sciatica Seasonal allergies Vision problems Vitamin deficiency Home Medications blood sugar diagnostic (True Metrix Glucose Test Strip) #150 ea 12/03/20 [Rx Last Taken Unknown] blood-glucose meter (True Metrix Glucose Meter) #1 ea 12/03/20 [Rx Last Taken Unknown] insulin aspart U-100 100 unit/mL (3 mL) subcutaneous pen (Novolog FlexPen U-100 Insulin aspart) 10 unit (0.1 mL) subcut TID #27 mL 10/02/21 [Rx Last Taken U nknown] lancets 30 gauge (1st Tier Unilet ComforTouch Lancet) #360 ea 10/02/21 [Rx Last Taken Unknown] pen needle, diabetic 31 gauge x 11/25 (1st Tier Unifine Pentips Plus) #360 ea 10/02/21 [Rx Last Taken Unknown] rosuvastatin 5 mg tablet 5 mg PO DAILY #90 tabs 10/02/21 [Rx Last Taken Unknown] insulin aspart U-100 100 unit/mL subcutaneous solution (Novolog U-100 Insulin aspart) 100 unit continuous subcutaneous infusion .continuous #90 mL 01/29/23 [Rx Last Taken Unknown] Dexcom G6 Sensor (blood-glucose sensor) #3 ea 05/08/23 [Rx Last Taken Unknown] Dexcom G6 Transmitter (blood-glucose transmitter) #1 ea 05/08/23 [Rx Last Taken Unknown] cyclobenzaprine 10 mg tablet 10 mg PO TID PRN Muscle Spasm #15 TABLETS 06/22/23 [Rx Last Taken Unknown] ibuprofen 600 mg tablet 600 mg PO Q6H PRN PRN pain #20 TABLETS 06/22/23 [Rx Last Taken Unknown] Allergy/AdvReac Type Severity Reaction Status Date / Time Penicillins AdvReac Hives Verified 06/22/23 09:28 Family History Father Alcoholism Mother Arthritis Aunt Diabetes Social History Smoking Status: Current every day smoker tobacco type: cigarettes alcohol intake: former substance use type: does not use ROS ROS ED Constitutional Constitutional ED: Denies chills or weight loss Eyes Eyes: Denies change in vision or diplopia ENT ENT ED: Denies ear pain, rhinorrhea or sore throat Cardiovascular Cardiovascular: Reports chest pain; Denies orthopnea, palpitations or racing heartbeat Respiratory/Chest Respiratory/Chest: Denies cough, dyspnea or orthopnea Gastrointestinal Gastrointestinal: Denies abdominal pain, diarrhea, nausea or vomiting Genitourinary Genitourinary ED: Denies dysuria, hematuria or urinary frequency Musculoskeletal Musculoskeletal: Reports back pain and other Details: Left arm pain ; Denies arthralgias or myalgias Integumentary Denies abscess or rash Neurologic Neurologic: Denies headache(s) or weakness Psychiatric Psychiatric: Denies anxiety, depression, suicidal ideation or suicidal thoughts Endocrine Endocrinology: Denies polydipsia, polyphagia or polyuria Allergic/Immunologic Allergic/Immunologic ED: Denies mouth swelling, tongue swelling or urticaria EXAM Physical Exam Const Vital Signs: 06/22/23 09:28 06/22/23 11:13 Temperature 96.7 F L Temperature Source Temporal Pulse Rate 83 68 Respiratory Rate 18 16 Blood Pressure 134/81 H 103/71 Blood Pressure Mean 98 81 Pulse Ox 99 99 Oxygen Delivery Method Room Air Room Air Positive well nourished and well developed General Appearance ED: well developed HEENT Reports normocephalic, head/scalp atraumatic and moist mucous membranes Eyes PERRL and EOMs intact bilaterally Neck no lymphadenopathy, supple and no JVD Resp normal respiratory effort and clear to auscultation bilaterally Cardio regular rate, regular rhythm and no murmurs GI normal to inspection, nondistended, normoactive bowel sounds and non-tender Palpation: soft Back/Spine no CVA tenderness and normal ROM Back/Spine Narrative: Patient has tenderness palpation of the paraspinal musculature (rhomboid region) just medial to the left scapula. I do not appreciate any rashes. Extremity normal to inspection General Extremety ED: Negative for edema General Extremity: Negative for edema Neuro oriented x3, CN's II-XII intact bilaterally and no sensory deficits noted Sensorium / Orientation: alert Motor Exam: strength 5/5 throughout Psych mental status grossly normal Mood & Affect: Negative for depressed or tearful Skin no rashes or lesions noted and no wounds MDM MDM MDM Narrative Medical decision making narrative: My independent interpretation of the chest x-ray is no acute process. CBC troponin BNP and D-dimer negative. EKG is a sinus rhythm with no concerning features. Clinically the patient has tenderness over the rhomboid muscles on the left. His pain appears radicular in nature. I would recommend conservative treatment and muscle relaxers heat anti-inflammatories possible managed care specialist. Follow-up with primary care 1 week if not improved. I am not seeing evidence of ACS, pulmonary embolism, dissection, pneumothorax, effusion or other intrathoracic emergency. Lab Data Attestation: I reviewed the patient's lab results. Labs: Laboratory Results - last 24 hr 06/22/23 10:05 WBC 6.9 RBC 5.29 Hgb 16.1 Hct 48.8 MCV 92.2 MCH 30.4 MCHC 33.0 RDW Std Deviation 39.6 RDW Coeff of Marco Antonio 11.8 Plt Count 257 MPV 9.4 Immature Gran % (Auto) 0.400 Neut % (Auto) 56.1 Lymph % (Auto) 32.0 Cascade % (Auto) 7.2 Eos % (Auto) 3.7 Baso % (Auto) 0.6 Absolute Neuts (auto) 3.9 Absolute Lymphs (auto) 2.22 Nucleated RBC % 0 D-Dimer Quant (PE/DVT) < 0.27 L Sodium 137 Potassium 4.2 Chloride 106 Carbon Dioxide 27.0 Anion Gap 4 L BUN 18 Creatinine 0.93 Estim Creat Clear Calc 95.52 Est GFR (MDRD) Af Amer 118 Est GFR (MDRD) Non-Af 98 BUN/Creatinine Ratio 19.4 Glucose 80 Calcium 9.1 Troponin I High Sens 5 Radiography Diagnostic Testing: Clinical Impression(s) from Imaging Studies Chest X-Ray 06/22/23 10:25 IMPRESSION: Normal x-ray examination of the chest. Electronically Signed: Laz Ivy MD at 10:55 EST , EKG Initial EKG: Attestation: I personally reviewed and interpreted this EKG as follows: Comments: Sinus rhythm ventricular rate of 69 bpm. No concerning features of ACS noted Prior EKG tracings: available for review Prior: Unchanged (30 Nov 2020) Discharge Plan Triage Chief Complaint: Back ED Provider: Deshawn Hodgson Dx/Rx/DC Orders Clinical Impression: Radicular pain of thoracic region, Diabetes mellitus type 1, Back pain Instructions: ED Back Spasm, No Trauma Prescriptions: New cyclobenzaprine [cyclobenzaprine] 10 mg tablet 10 mg PO TID PRN (Reason: Muscle Spasm) Qty: 15 0RF ibuprofen 600 mg tablet 600 mg PO Q6H PRN PRN (Reason: pain) Qty: 20 0RF No Action (DME) blood-glucose meter [True Metrix Glucose Meter] [facility] See Rx Instructions .ROUTE .MEDSUPPLY Qty: 1 0RF Rx Instructions: As directed (DME) True Metrix Glucose Test Strip Strip See Rx Instructions .ROUTE .MEDSUPPLY Qty: 150 12RF Rx Instructions: 4 times daily insulin aspart U-100 [Novolog FlexPen U-100 Insulin] 100 unit/mL (3 mL) insulin pen 10 unit subcut TID Qty: 27 1RF (DME) pen needle, diabetic [1st Tier Unifine Pentips Plus] 31 gauge x 5/16 needle See Rx Instructions .ROUTE .MEDSUPPLY Qty: 360 1RF Rx Instructions: 4 times daily (DME) lancets [1st Tier Unilet ComforTouch] 30 gauge misc See Rx Instructions .ROUTE .MEDSUPPLY Qty: 360 1RF Rx Instructions: 4x/day (DME) Dexcom G6 Transmitter Device See Rx Instructions .Route Qty: 1 0RF Rx Instructions: As directed (DME) Dexcom G6 Sensor Device See Rx Instructions .Route Qty: 3 3RF Rx Instructions: As directed rosuvastatin 5 mg tablet 5 mg PO DAILY Qty: 90 3RF insulin aspart U-100 [Novolog U-100 Insulin aspart] 100 unit/mL solution 100 unit continuous subcutaneous infusion .continuous Qty: 90 1RF Primary Care Provider: Jordin Cuevas Referrals: Jordin Cuevas MD [Primary Care Provider] - 1 Week if not improving Podlogar,Alida HOLLAND, [employer] [employer] [facility] [Non-Staff] - Disposition Disposition: Home, Self Care
[2023-06-22] MEDS: Ketorolac 30 MG/ML Syringe IV (10:16)
[2023-06-22 10:21] LABS: Absolute Lymphocyte Count 2.22 X10^3/uL (0.83-4.51); Absolute Neutrophil Count 3.9 X10^3/uL (2.0-7.7); Basophil# 0.04 X10^3/uL; Basophil% 0.6 % (0-1); Eosinophil# 0.26 X10^3/uL; Eosinophils% 3.7 % (0-5); Hematocrit 48.8 % (40-54); Hemoglobin 16.1 g/dL (13.0-16.5); Lymphocyte # 2.22 X10^3/ul (0.83-4.51); Mean Corpuscular Hgb 30.4 pg (27.0-32.0); Mean Corpuscular Volume 92.2 fL (80-94); Mean Platelet Vol. 9.4 fl (6.2-12.0); Monocyte% 7.2 % (0-10); NRBC Flagged by Analyzer 0 % (0-5); Neutrophil # 3.89 X10^3/uL (2.7-7.7); Neutrophil % 56.1 % (47-70); Platelet Count 257 K/mm3 (150-450); RBC Distribution Width CV 11.8 % (11.6-14.6); RBC Distribution Width SD 39.6 fl (35.1-43.9); Red Blood Count 5.29 M/mm3 (4.6-6.2); White Blood Count 6.9 K/mm3 (4.4-11.0)
--- NOTE | 2023-06-22 10:25 | RAD_ITS ---
STUDY: X-RAY CHEST REASON FOR EXAM: Male, 38 years old. Chest pain TECHNIQUE: Single AP portable view of the chest. COMPARISON: Comparison is made with prior study November 30, 2020. FINDINGS: The lungs are clear and expanded. There is no demonstrated pleural abnormality. Normal size heart. Normal mediastinum and geena. Normal visualized pulmonary arteries. Normal visualized aortic arch and descending thoracic aorta. Normal visualized thoracic spine. Normal visualized ribs, clavicles, and shoulders. There is no demonstrated abnormality of the visualized soft tissue structures of the upper abdomen. RAD/Chest 1 View (Portable) IMPRESSION: Normal x-ray examination of the chest. Electronically Signed: Laz Ivy MD at 10:55 [facility] ,
[2023-06-22 10:38] LABS: Anion Gap 4 (5-15); BUN 18 mg/dL (7-18); BUN/Creat Ratio 19.4 RATIO (10-20); Calcium,Total 9.1 mg/dL (8.5-10.1); Chloride 106 mmol/L (98-107); Creatinine, Serum 0.93 mg/dL (0.70-1.30); EST Glomerular Filtration Rate 98 mL/min (>60); Est Glom Filt Rate - Afr Amer 118 mL/min (>60); Estimated Creatinine Clearance 95.52 ml/min; Glucose 80 mg/dL (74-106); Potassium 4.2 mmol/L (3.5-5.1); Sodium Level 137 mmol/L (136-145); Troponin-I HS 5 pg/mL (3.0-78.0)
[2023-06-22 10:44] LABS: D-Dimer Quantitative (DVT/PE) < 0.27 FEU/ug/m (0.27-0.49)
[2023-06-22 11:13] VITALS: BP 103/71; PULSE 68; RESP 16; O2SAT 99
== END 2023-06-22 11:46 | disposition home or self-care (01) ==
PROVIDERS: Emergency Provider Emergency Medicine; PCP Family Medicine; Visit Provider Emergency Medicine
DX: M54.14 Radiculopathy, thoracic region (principal); E10.40 Type 1 diabetes mellitus with diabetic neuropathy, unspecified; Z79.4 Long term (current) use of insulin; X58.XXXA Exposure to other specified factors, initial encounter; F17.210 Nicotine dependence, cigarettes, uncomplicated; Z96.41 Presence of insulin pump (external) (internal)
CPT/HCPCS: 71045; 80048; 84484; 85025; 85379; 93005; 96374; 99284; A4216

== ENCOUNTER 2023-07-15 12:36 | Emergency (ER) | payer MEDICAID, SELFPAY ==
[2023-07-15 12:39] VITALS: BP 138/85; PULSE 79; RESP 14; TEMP 36.1; O2SAT 100; BMI 24.5
[2023-07-15 12:58] LABS: Bedside Glucose 258 mg/dL (74-106)
--- NOTE | 2023-07-15 13:47 | EX.ED.DYSGE1 ---
HPI History of Present Illness Chief Complaint: Hyperglycemia Narrative Narrative: Patient presents after an episode of hyperglycemia. Patient states he used to have trouble controlling his blood sugars. But many months ago he got an insulin pump. He states he has had great control since. He has never been in DKA since. His hemoglobin A1c's are between 6 and 7 now. He was at work this morning he got his insulin pump tubing accidentally pulled out of his abdomen. He tried to replace it but the needle bent and it was not working right. His could not bring in a needle because she was at a doctor's appointment. He was trying to wait till lunch but he felt his sugar going up. He got a bit nauseated. He went home. He vomited once. But he put in the new tubing. He bolused himself with 10 units and is now coming down. He showed me his monitor. He was at a 450 or so and is now coming down very smoothly and is at 220 currently. He states he does not feel like he is in DKA. He has no nausea anymore. He feels fine. He just needs a note to allow him to go back to work. [facility] Medical History Arthritis Back problem Bone fracture Diabetes mellitus type 1 Headache Neuropathy Sciatica Seasonal allergies Vision problems Vitamin deficiency Home Medications blood sugar diagnostic (True Metrix Glucose Test Strip) #150 ea 12/03/20 [Rx Last Taken Unknown] blood-glucose meter (True Metrix Glucose Meter) #1 ea 12/03/20 [Rx Last Taken Unknown] insulin aspart U-100 100 unit/mL (3 mL) subcutaneous pen (Novolog FlexPen U-100 Insulin aspart) 10 unit (0.1 mL) subcut TID #27 mL 10/02/21 [Rx Last Taken Unknown] lancets 30 gauge (1st Tier Unilet ComforTouch Lancet) #360 ea 10/02/21 [Rx Last Taken Unknown] pen needle, diabetic 31 gauge x 5/16 (1st Tier Unifine Pentips Plus) #360 ea 10/02/21 [Rx Last Taken Unknown] Dexcom G6 Sensor (blood-glucose sensor) #3 ea 05/08/23 [Rx Last Taken Unknown] Dexcom G6 Transmitter (blood-glucose transmitter) #1 ea 05/08/23 [Rx Last Taken Unknown] insulin aspart U-100 100 unit/mL subcutaneous solution (Novolog U-100 Insulin aspart) 100 unit continuous subcutaneous infusion .continuous #90 mL 06/25/23 [Rx Last Taken Unknown] rosuvastatin 5 mg tablet 5 mg PO DAILY #90 tabs 06/25/23 [Rx Last Taken Unknown] Allergy/AdvReac Type Severity Reaction Status Date / Time Penicillins AdvReac Hives Verified 07/15/23 12:37 Family History Father Alcoholism Mother Arthritis Aunt Diabetes Social History Smoking Status: Current every day smoker tobacco type: cigarettes alcohol intake: former substance use type: does not use ROS ROS ED Constitutional Constitutional ED: Denies fever(s) or subjective Eyes Eyes: Reports other Details: Had some blurry vision but now gone ENT ENT ED: Denies rhinorrhea Cardiovascular Cardiovascular: Denies chest pain or palpitations Respiratory/Chest Respiratory/Chest: Denies cough or dyspnea Gastrointestinal Gastrointestinal: Reports nausea, vomiting and other Details: Symptoms now gone and no nausea and vomiting ; Denies abdominal pain Musculoskeletal Musculoskeletal: Denies arthralgias Integumentary Denies rash Neurologic Neurologic: Denies headache(s) or paresthesias Hematologic/Lymphatic Hematologic/Lymphatic: Denies easy bleeding or easy bruising Allergic/Immunologic Allergic/Immunologic ED: Denies urticaria EXAM Physical Exam Narrative Exam Narrative: CONSTITUTIONAL: Patient is nontoxic in appearance. The patient looks comfortable. HEENT: No notable trauma. Mucous membranes still very moist. EYES: No conjunctival injection. No proptosis. CARDIOVASCULAR: Regular rate. Regular rhythm. No notable murmur. No JVD. RESPIRATORY: No respiratory distress. Breathing is unlabored. It is not at all fast. No wheezes. No rhonchi. No rales. No pain with a deep breath. GASTROINTESTINAL: Not distended. Bowel sounds are normal. No tenderness. No guarding. No rebound. No palpable mass. No bruit. GENITOURINARY: No tenderness over the bladder. No CVA tenderness. MUSCULOSKELETAL: Atraumatic. No tenderness. NEUROLOGICAL: Patient is alert and appropriate. No focal deficit noted. SKIN: No noted rashes. No diaphoresis. PSYCHIATRIC: Patient is calm. Mood is appropriate. Const Vital Signs: 07/15/23 12:39 07/15/23 13:16 Temperature 96.9 F L Temperature Source Temporal Pulse Rate 79 Respiratory Rate 14 Respiratory Effort Normal Respiratory Pattern Normal Blood Pressure 138/85 H Blood Pressure Mean 102 Pulse Ox 100 Oxygen Delivery Method Room Air MDM MDM MDM Narrative Medical decision making narrative: Patient's symptoms are essentially resolved. His blood sugars back down. He states he is very comfortable going home and really does not want a workup. If he has further symptoms he will come back. He just needs a work note so he can go back to work tomorrow. I am happy to provide this. We discussed reasons to return. Lab Data Attestation: I reviewed the patient's lab results. Labs: Laboratory Results - last 24 hr 07/15/23 12:38 POC Glucose 258 H Discharge Plan Triage Chief Complaint: Hyperglycemia ED Provider: Quentin Fermin Dx/Rx/DC Orders Clinical Impression: Presence of insulin pump, Diabetes mellitus type 1, Acute hyperglycemia Instructions: ED Diabetic Hyperglycemia Prescriptions: No Action (DME) blood-glucose meter [True Metrix Glucose Meter] Misc See Rx Instructions .ROUTE .MEDSUPPLY Qty: 1 0RF Rx Instructions: As directed (DME) True Metrix Glucose Test Strip Strip See Rx Instructions .ROUTE .MEDSUPPLY Qty: 150 12RF Rx Instructions: 4 times daily insulin aspart U-100 [Novolog FlexPen U-100 Insulin] 100 unit/mL (3 mL) insulin pen 10 unit subcut TID Qty: 27 1RF (DME) pen needle, diabetic [1st Tier Unifine Pentips Plus] 31 gauge x 5/16 needle See Rx Instructions .ROUTE .MEDSUPPLY Qty: 360 1RF Rx Instructions: 4 times daily (DME) lancets [1st Tier Unilet ComforTouch] 30 gauge misc See Rx Instructions .ROUTE .MEDSUPPLY Qty: 360 1RF Rx Instructions: 4x/day (DME) Dexcom G6 Transmitter Device See Rx Instructions .Route Qty: 1 0RF Rx Instructions: As directed (DME) Dexcom G6 Sensor Device See Rx Instructions .Route Qty: 3 3RF Rx Instructions: As directed insulin aspart U-100 [Novolog U-100 Insulin aspart] 100 unit/mL solution 100 unit continuous subcutaneous infusion .continuous Qty: 90 1RF rosuvastatin 5 mg tablet 5 mg PO DAILY Qty: 90 3RF Primary Care Provider: Jordin Cuevas Referrals: Jordin Cuevas MD [Primary Care Provider] - As Needed Disposition Disposition: Home, Self Care
[2023-07-15 14:12] VITALS: BP 123/78; PULSE 75; RESP 16; O2SAT 99
== END 2023-07-15 14:13 | disposition home or self-care (01) ==
PROVIDERS: Emergency Provider Emergency Medicine; PCP Family Medicine; Visit Provider Emergency Medicine
DX: E10.65 Type 1 diabetes mellitus with hyperglycemia (principal); E10.40 Type 1 diabetes mellitus with diabetic neuropathy, unspecified; Z79.4 Long term (current) use of insulin; Z96.41 Presence of insulin pump (external) (internal); F17.200 Nicotine dependence, unspecified, uncomplicated
CPT/HCPCS: 82962; 99282

== ENCOUNTER 2023-08-17 04:16 | Emergency (ER) | payer MEDICAID, SELFPAY ==
[2023-08-17 04:17] VITALS: BP 128/80; PULSE 71; RESP 15; TEMP 36.4; O2SAT 98; BMI 24.7
--- NOTE | 2023-08-17 04:29 | RAD_ITS ---
EXAM: XR CHEST, 2 VIEWS CLINICAL INDICATION: cough, sob, L chest pain TECHNIQUE: Frontal and lateral views of the chest. COMPARISON: June 22, 2023. FINDINGS: LUNGS AND PLEURAL SPACES: Unremarkable. No consolidation or edema. No pneumothorax. No effusion. HEART: Unremarkable. Cardiac silhouette not enlarged. MEDIASTINUM: Central airways and mediastinal contour are unremarkable. BONES/JOINTS: Unremarkable. No acute fracture. SOFT TISSUES: Unremarkable. RAD/Chest PA and Lateral IMPRESSION: No radiographic evidence of acute cardiopulmonary disease. Electronically Signed: Cecily Wilson MD at 5:39 EST ,
--- NOTE | 2023-08-17 04:31 | EX.ED.DYSGE1 ---
HPI History of Present Illness Chief Complaint: General Illness Informant: patient Narrative Narrative: 38-year-old type I diabetic with hepatitis C just started [place] 3 weeks ago states that for the past 4 days he has felt fatigued, started with mucousy throat for which he took off work, that progressed to a cough that is productive of clear sometimes yellow sputum, pleuritic chest pain on the left, occasional chest pressure on the right he states. He states he has been feeling a little short of breath. No leg pain or swelling. No history of DVT or PE. No recent immobilization, hospitalization, surgery. No fevers that he knows of. States his blood sugars have actually been good and fairly normal compared to when he usually gets sick when they go up. He states 2 family members tested positive for COVID when they were ill around 2 weeks ago. [facility] Medical History Arthritis Back problem Bone fracture Diabetes mellitus type 1 Headache Hep C w/o coma, chronic Neuropathy Sciatica Seasonal allergies Vision problems Vitamin deficiency Home Medications blood sugar diagnostic (True Metrix Glucose Test Strip) #150 ea 12/03/20 [Rx Last Taken Unknown] blood-glucose meter (True Metrix Glucose Meter) #1 ea 12/03/20 [Rx Last Taken Unknown] insulin aspart U-100 100 unit/mL (3 mL) subcutaneous pen (Novolog FlexPen U-100 Insulin aspart) 10 unit (0.1 mL) subcut TID #27 mL 10/02/21 [Rx Last Taken Unknown] lancets 30 gauge (1st Tier Unilet ComforTouch Lancet) #360 ea 10/02/21 [Rx Last Taken Unknown] pen needle, diabetic 31 gauge x 5/16 (1st Tier Unifine Pentips Plus) #360 ea 10/02/21 [Rx Last Taken Unknown] Dexcom G6 Sensor (blood-glucose sensor) #3 ea 05/08/23 [Rx Last Taken Unknown] Dexcom G6 Transmitter (blood-glucose transmitter) #1 ea 05/08/23 [Rx Last Taken Unknown] insulin aspart U-100 100 unit/mL subcutaneous solution (Novolog U-100 Insulin aspart) 100 unit continuous subcutaneous infusion .continuous #90 mL 06/25/23 [Rx Last Taken Unknown] rosuvastatin 5 mg tablet 5 mg PO DAILY #90 tabs 06/25/23 [Rx Last Taken Unknown] glecaprevir 100 mg-pibrentasvir 40 mg tablet (Mavyret) 3 tab PO DAILY 08/17/23 [History Last Taken Unknown] Allergy/AdvReac Type Severity Reaction Status Date / Time Penicillins AdvReac Hives Verified 07/15/23 12:37 Family History Father Alcoholism Mother Arthritis Aunt Diabetes Social History Smoking Status: Current every day smoker tobacco type: cigarettes alcohol intake: former substance use type: does not use ROS ROS ED Constitutional Constitutional ED: Reports fatigue; Denies chills or fever(s) Eyes Eyes: Denies change in vision or diplopia ENT ENT ED: Reports nasal congestion; Denies ear pain or sore throat Cardiovascular Cardiovascular: Reports chest pain; Denies palpitations Respiratory/Chest Respiratory/Chest: Reports cough and dyspnea Gastrointestinal Gastrointestinal: Reports nausea; Denies abdominal pain, diarrhea, melena or vomiting Genitourinary Genitourinary ED: Denies dysuria or hematuria Musculoskeletal Musculoskeletal: Denies back pain or neck pain Integumentary Denies abscess or rash Neurologic Neurologic: Denies headache(s), paresthesias or weakness Psychiatric Psychiatric: Denies anxiety or suicidal thoughts EXAM Physical Exam Const Vital Signs: 08/17/23 04:17 08/17/23 04:23 08/17/23 05:00 Temperature 97.5 F L 97.6 F L Temperature Source Oral Oral Pulse Rate 71 63 Respiratory Rate 15 14 Respiratory Pattern Normal Blood Pressure 128/80 H 121/77 H Blood Pressure Mean 96 91 Pulse Ox 98 98 Oxygen Delivery Method Room Air Room Air Positive well nourished and well developed General Appearance ED: well developed and NAD HEENT Reports moist mucous membranes normocephalic and atraumatic Eyes PERRL and EOMs intact bilaterally Neck full ROM, no lymphadenopathy and supple Chest Wall inspection of chest normal and palpation of chest normal Resp normal respiratory effort and clear to auscultation bilaterally Cardio regular rate, regular rhythm and no murmurs Rate: Negative for tachycardic GI non-tender and non-distended Auscultation: normoactive bowel sounds Palpation: soft Back/Spine no CVA tenderness General Back: other FROM Extremity normal to inspection General Extremety ED: Negative for edema, pulses abnormal or tenderness General Extremity: Negative for edema or pulses abnormal Neuro oriented x3, CN's II-XII intact bilaterally and no sensory deficits noted Sensorium / Orientation: awake and alert Motor Exam: strength 5/5 throughout Psych mental status grossly normal Skin no rashes or lesions noted and no wounds MDM MDM MDM Narrative Medical decision making narrative: URI symptoms with dyspnea, left-sided chest discomfort. Differential includes pneumonia, DKA less likely but possible given type 1 diabetes and dyspnea possibly due to acidotic state, and infectious etiology such as COVID, influenza, RSV, and other viral etiologies that we do not have test for emergently. Labs look normal with no leukocytosis no anion gap, and a normal bicarb. Blood sugar is 92. Given all of that, he is not in DKA. His vital signs are normal and his two-view chest x-ray on my interpretation shows no acute infiltrate/pneumonia. Radiology in agreement. His viral swab came back positive for RSV and negative for the others. With regards to the possibility of pulmonary embolus, his PERC score is 0, therefore ruling PE out. Patient is reassured, supportive care advised, he is asking for a work note which was granted. Lab Data Attestation: I reviewed the patient's lab results. Labs: Laboratory Results - last 24 hr 08/17/23 04:50 WBC 7.2 RBC 5.16 Hgb 15.7 Hct 46.2 MCV 89.5 MCH 30.4 MCHC 34.0 RDW Std Deviation 39.0 RDW Coeff of Marco Antonio 11.9 Plt Count 239 MPV 9.7 Immature Gran % (Auto) 0.300 Neut % (Auto) 41.7 L Lymph % (Auto) 36.9 Lynn % (Auto) 11.3 H Eos % (Auto) 9.2 H Baso % (Auto) 0.6 Absolute Neuts (auto) 3.0 Absolute Lymphs (auto) 2.65 Nucleated RBC % 0 Sodium 138 Potassium 3.9 Chloride 110 H Carbon Dioxide 27.0 Anion Gap 1 L BUN 18 Creatinine 0.84 Estim Creat Clear Calc 105.75 Est GFR (MDRD) Af Amer 133 Est GFR (MDRD) Non-Af 110 BUN/Creatinine Ratio 21.5 H Glucose 92 Calcium 8.9 Radiography Diagnostic Testing: Clinical Impression(s) from Imaging Studies Chest X-Ray 08/17/23 04:29 IMPRESSION: No radiographic evidence of acute cardiopulmonary disease. Electronically Signed: Cecily Wilson MD at 5:39 EST , Discharge Plan Triage Chief Complaint: General Illness ED Provider: Armen Salguero Dx/Rx/DC Orders Clinical Impression: RSV bronchitis Instructions: RSV (Respiratory Syncytial Virus), ED Bronchitis, No Antibiotic (Adult) Prescriptions: No Action (DME) blood-glucose meter [True Metrix Glucose Meter] Misc See Rx Instructions .ROUTE .MEDSUPPLY Qty: 1 0RF Rx Instructions: As directed (DME) True Metrix Glucose Test Strip Strip See Rx Instructions .ROUTE .MEDSUPPLY Qty: 150 12RF Rx Instructions: 4 times daily insulin aspart U-100 [Novolog FlexPen U-100 Insulin] 100 unit/mL (3 mL) insulin pen 10 unit subcut TID Qty: 27 1RF (DME) pen needle, diabetic [1st Tier Unifine Pentips Plus] 31 gauge x 5/16 needle See Rx Instructions .ROUTE .MEDSUPPLY Qty: 360 1RF Rx Instructions: 4 times daily (DME) lancets [1st Tier Unilet ComforTouch] 30 gauge misc See Rx Instructions .ROUTE .MEDSUPPLY Qty: 360 1RF Rx Instructions: 4x/day (DME) Dexcom G6 Transmitter Device See Rx Instructions .Route Qty: 1 0RF Rx Instructions: As directed (DME) Dexcom G6 Sensor Device See Rx Instructions .Route Qty: 3 3RF Rx Instructions: As directed insulin aspart U-100 [Novolog U-100 Insulin aspart] 100 unit/mL solution 100 unit continuous subcutaneous infusion .continuous Qty: 90 1RF rosuvastatin 5 mg tablet 5 mg PO DAILY Qty: 90 3RF Mavyret 100-40 mg tablet 3 tab PO DAILY Stand Alone Forms: ED Work / School Excuse Primary Care Provider: Jordin Cuevas Referrals: Jordin Cuevas MD [Primary Care Provider] - As Needed Disposition Disposition: Home, Self Care
[2023-08-17] MEDS: Ondansetron 4 MG/2 ML Vial IV (04:52)
[2023-08-17 04:56] LABS: Absolute Lymphocyte Count 2.65 X10^3/uL (0.83-4.51); Basophil# 0.04 X10^3/uL; Basophil% 0.6 % (0-1); Eosinophil# 0.66 X10^3/uL; Eosinophils% 9.2 % (0-5); Hematocrit 46.2 % (40-54); Hemoglobin 15.7 g/dL (13.0-16.5); Lymphocyte # 2.65 X10^3/ul (0.83-4.51); Lymphocyte % 36.9 % (19-41); Mean Corpuscular Hgb 30.4 pg (27.0-32.0); Mean Corpuscular Volume 89.5 fL (80-94); Mean Platelet Vol. 9.7 fl (6.2-12.0); Monocyte# 0.81 X10^3/uL; Monocyte% 11.3 % (0-10); NRBC Flagged by Analyzer 0 % (0-5); Neutrophil % 41.7 % (47-70); Platelet Count 239 K/mm3 (150-450); RBC Distribution Width CV 11.9 % (11.6-14.6); Red Blood Count 5.16 M/mm3 (4.6-6.2); White Blood Count 7.2 K/mm3 (4.4-11.0)
[2023-08-17 05:00] VITALS: BP 121/77; PULSE 63; RESP 14; TEMP 36.4; O2SAT 98
[2023-08-17 05:49] LABS: Anion Gap 1 (5-15); BUN 18 mg/dL (7-18); BUN/Creat Ratio 21.5 RATIO (10-20); Calcium,Total 8.9 mg/dL (8.5-10.1); Chloride 110 mmol/L (98-107); Creatinine, Serum 0.84 mg/dL (0.70-1.30); EST Glomerular Filtration Rate 110 mL/min (>60); Est Glom Filt Rate - Afr Amer 133 mL/min (>60); Estimated Creatinine Clearance 105.75 ml/min; Glucose 92 mg/dL (74-106); Potassium 3.9 mmol/L (3.5-5.1); Sodium Level 138 mmol/L (136-145)
[2023-08-17 06:37] VITALS: BP 105/67; PULSE 73; RESP 18; O2SAT 96
== END 2023-08-17 06:38 | disposition home or self-care (01) ==
PROVIDERS: Emergency Provider Emergency Medicine; PCP Family Medicine; Visit Provider Emergency Medicine
DX: J20.5 Acute bronchitis due to respiratory syncytial virus (principal); E10.40 Type 1 diabetes mellitus with diabetic neuropathy, unspecified; Z79.4 Long term (current) use of insulin; F17.210 Nicotine dependence, cigarettes, uncomplicated
CPT/HCPCS: 71046; 80048; 85025; 87631; 96374; 99282; A4216; J2405

== ENCOUNTER 2024-09-13 11:12 | Emergency (ER) | payer MEDICAID, SELFPAY ==
[2024-09-13 11:13] VITALS: BP 124/85; PULSE 86; RESP 16; TEMP 36.6; O2SAT 99; BMI 27.4
[2024-09-13 13:13] VITALS: PULSE 78; RESP 16; O2SAT 98
--- NOTE | 2024-09-13 13:46 | RAD_ITS ---
PROCEDURE: RIBS ZEFERINO MIN 4V W/PA CHEST REASON FOR EXAM: Bilateral anterior rib pain following injury. TECHNIQUE: Frontal and bilateral oblique views of the bilateral ribs. COMPARISON: None. FINDINGS: No displaced rib fractures are identified. No suspicious lytic or blastic rib lesions. RAD/Ribs Zeferino Min 4V w/PA Chest IMPRESSION: NO EVIDENCE OF ACUTE RIB FRACTURE OR PNEUMOTHORAX. Reading Location: [id number]
[2024-09-13] MEDS: Ondansetron ODT 4 MG Tablet 8 MG PO (13:51)
--- NOTE | 2024-09-13 14:27 | EKG12_ITS ---
Test Reason : CP Blood Pressure : */* mmHG Vent. Rate : 79 BPM Atrial Rate : 79 BPM P-R Int : 190 ms QRS Dur : 74 ms QT Int : 358 ms P-R-T Axes : 59 43 45 degrees QTcB Int : 410 ms Normal sinus rhythm Normal ECG Confirmed by Riley Loya ([id number]), editor magazine JEROME RAYA ([id number]) on 09/15/2024 6:51:47 AM Referred By: DINESH/BB Confirmed By: Riley Loya
--- NOTE | 2024-09-13 14:36 | ED.VIS.CHEST ---
HPI History of Present Illness Chief Complaint: Chest Other Informant: patient Narrative Narrative: 39-year-old male diabetic states he put his arms up over his head last night to stretch he felt a painful pop in his lower chest. Is been painful to move ever since, is not painful to breathe, but when he moves he can also feel the pain shooting through his back into the middle of his back opposite the area that is hurting. States the pain has been making feel nauseated he has had no vomiting no fevers or chills or recent cough. [facility] Medical History Hep C w/o coma, chronic Vitamin deficiency Vision problems Neuropathy Headache Bone fracture Back problem Arthritis Seasonal allergies Sciatica Diabetes mellitus type 1 Home Medications ?Medication ?Instructions ?Recorded ?Last Taken ?Type blood sugar diagnostic (True #150 ea 12/03/20 Unknown Rx Metrix Glucose Test Strip) blood-glucose meter (True Metrix #1 ea 12/03/20 Unknown Rx Glucose Meter) lancets 30 gauge (1st Tier Unilet #360 ea 10/02/21 Unknown Rx ComforTouch Lancet) pen needle, diabetic 31 gauge x #360 ea 10/02/21 Unknown Rx 5/16 (1st Tier Unifine Pentips Plus) blood-glucose sensor (Dexcom G7 #1 ea 03/10/24 Unknown Rx Sensor device) insulin aspart U-100 100 unit/mL 100 unit continuous subcutaneous 03/10/24 Unknown Rx subcutaneous solution (Novolog infusion .continuous #90 mL U-100 Insulin aspart) rosuvastatin 5 mg tablet 5 mg PO DAILY #90 tabs 03/10/24 Unknown Rx diclofenac sodium 1 % topical gel 2.25 inch topical TID PRN PRN pain 09/13/24 Unknown Rx #100 grams Allergy/AdvReac Type Severity Reaction Status Date / Time Penicillins AdvReac Hives Verified 09/13/24 11:15 Family History Father Alcoholism Mother Arthritis Aunt Diabetes Social History Smoking Status: Current every day smoker tobacco type: cigarettes alcohol intake: former substance use type: does not use ROS ROS ED Constitutional Constitutional ED: Denies chills or fever(s) Eyes Eyes: Denies change in vision Cardiovascular Cardiovascular: Reports as per HPI and chest pain; Denies palpitations Respiratory/Chest Respiratory/Chest: Denies cough or dyspnea Gastrointestinal Gastrointestinal: Reports nausea; Denies abdominal pain or vomiting Musculoskeletal Musculoskeletal: Reports back pain; Denies neck pain Neurologic Neurologic: Denies headache(s), paresthesias or weakness EXAM Physical Exam Const Vital Signs: 09/13/24 11:13 09/13/24 13:07 09/13/24 13:13 Temperature 98 F Temperature Source Oral Pulse Rate 86 78 Respiratory Rate 16 16 Respiratory Pattern Normal Blood Pressure 124/85 H Blood Pressure Mean 98 Pulse Ox 99 98 Oxygen Delivery Method Room Air Positive well nourished and well developed General Appearance ED: well developed and NAD HEENT Reports moist mucous membranes normocephalic and atraumatic Eyes PERRL and EOMs intact bilaterally Neck full ROM and supple Chest Wall Chest Narrative: There is reproducible pain with palpation on the anterior chest wall, sternum is nontender, but the caudal-most parasternal area and ribs are tender but there is no subcostal tenderness in the abdomen. There is no crepitance or subcutaneous emphysema. There is no splinting with deep inspiration. Resp normal respiratory effort and clear to auscultation bilaterally Cardio regular rate, regular rhythm and no murmurs Rate: Negative for tachycardic GI non-tender and non-distended Auscultation: normoactive bowel sounds Palpation: soft Back/Spine no CVA tenderness Back/Spine Narrative: No reproducible paraspinal or spinal tenderness in the area of pain mid lumbar. General Back: other FROM Extremity normal to inspection General Extremety ED: Negative for edema General Extremity: Negative for edema Neuro oriented x3, CN's II-XII intact bilaterally and no sensory deficits noted Sensorium / Orientation: awake and alert Motor Exam: strength 5/5 throughout Skin no rashes or lesions noted and no wounds MDM MDM MDM Narrative Medical decision making narrative: 6 view x-ray series involving both sides of his rib cage as well as a PA chest were obtained, screening for rib fracture, pneumothorax, pneumomediastinum; on my interpretation these are all normal and negative for all of that. Radiology in agreement. Patient reassured, likely just a chest wall strain, he could have subluxed rib or something, but does not go away could follow-up with his doctor or chiropractor in the meantime I gave him 1 dose of antiinflammatories here, but seen as he is a diabetic I would not advise continuing to that I wrote him a prescription for topical diclofenac that he could use instead. He is comfortable with that plan. Radiography Diagnostic Testing: Clinical Impression(s) from Imaging Studies Ribs w/Chest X-Ray 09/13/24 13:46 IMPRESSION: NO EVIDENCE OF ACUTE RIB FRACTURE OR PNEUMOTHORAX. Reading Location: [id number] Rhythm Strip Rhythm Strip: Sinus Rhythm Rate: 79 Ectopy: None EKG Initial EKG: Attestation: I personally reviewed and interpreted this EKG as follows: Interpretation: Sinus Rhythm and No Acute Injury Pattern Comments: Nml axis & intervals; nml EKG Discharge Plan Triage Chief Complaint: Chest Other Other Complaint: Nausea/Vomiting/Diarrhea ED Provider: Armen Salguero Dx/Rx/DC Orders Clinical Impression: Strain of chest wall Instructions: ED Chest Wall Strain Prescriptions: New diclofenac sodium 1 % gel 2.25 inch topical TID PRN PRN (Reason: pain) Qty: 100 0RF No Action (DME) blood-glucose meter [True Metrix Glucose Meter] Misc See Rx Instructions .ROUTE .MEDSUPPLY Qty: 1 0RF Rx Instructions: As directed (DME) True Metrix Glucose Test Strip Strip See Rx Instructions .ROUTE .MEDSUPPLY Qty: 150 12RF Rx Instructions: 4 times daily (DME) pen needle, diabetic [1st Tier Unifine Pentips Plus] 31 gauge x 5/16 needle See Rx Instructions .ROUTE .MEDSUPPLY Qty: 360 1RF Rx Instructions: 4 times daily (DME) lancets [1st Tier Unilet ComforTouch] 30 gauge misc See Rx Instructions .ROUTE .MEDSUPPLY Qty: 360 1RF Rx Instructions: 4x/day (DME) Dexcom G7 Sensor Device See Rx Instructions .ROUTE Qty: 1 0RF Rx Instructions: As directed insulin aspart U-100 [Novolog U-100 Insulin aspart] 100 unit/mL solution 100 unit continuous subcutaneous infusion .continuous Qty: 90 1RF rosuvastatin 5 mg tablet 5 mg PO DAILY Qty: 90 3RF Primary Care Provider: Jordin Cuevas: Jordin Cuevas MD [Primary Care Provider] - 1 Week if not improving Print Language: Azerbaijani Disposition Disposition: Home, Self Care Discharge Date/Time: 09/13/24 14:56
== END 2024-09-13 14:56 | disposition home or self-care (01) ==
PROVIDERS: Emergency Provider Emergency Medicine; PCP Family Medicine; Visit Provider Emergency Medicine
DX: S29.011A Strain of muscle and tendon of front wall of thorax, initial encounter (principal); E10.40 Type 1 diabetes mellitus with diabetic neuropathy, unspecified; X58.XXXA Exposure to other specified factors, initial encounter; F17.210 Nicotine dependence, cigarettes, uncomplicated
CPT/HCPCS: 71111; 93005; 99284

== ENCOUNTER 2024-11-30 08:37 | Emergency (ER) | payer MEDICAID, SELFPAY ==
[2024-11-30 08:37] VITALS: BP 144/91; PULSE 97; RESP 19; TEMP 36.2; O2SAT 98; BMI 28.3
--- NOTE | 2024-11-30 08:42 | EDS_ITS ---
HPI History of Present Illness Chief Complaint: Constipation [facility] Medical History Hep C w/o coma, chronic Vitamin deficiency Vision problems Neuropathy Headache Bone fracture Back problem Arthritis Seasonal allergies Sciatica Diabetes mellitus type 1 Home Medications ?Medication ?Instructions ?Recorded ?Last Taken ?Type blood sugar diagnostic (True #150 ea 12/03/20 Unknown Rx Metrix Glucose Test Strip) blood-glucose meter (True Metrix #1 ea 12/03/20 Unknow n Rx Glucose Meter) lancets 30 gauge (1st Tier Unilet #360 ea 10/02/21 Unk nown Rx ComforTouch Lancet) pen needle, diabetic 31 gauge x #360 ea 10/02/21 Unkno wn Rx 11/25 (1st Tier Unifine Pentips Plus) blood-glucose sensor (Dexcom G7 #1 ea 03/10/24 Unknown Rx Sensor device) insulin aspart U-100 100 unit/mL 100 unit continuous s ubcutaneous 03/10/24 Unknown Rx subcutaneous solution (Novolog infusion .continuous #9 0 mL U-100 Insulin aspart) rosuvastatin 5 mg tablet 5 mg PO DAILY #90 tabs 03/10 Unknown Rx diclofenac sodium 1 % topical gel 2.25 inch topical TI D PRN PRN pain 09/13/24 Unknown Rx #100 grams Allergy/AdvReac Type Severity Reaction Status Date / Time Penicillins AdvReac Hives Verified 11/30/24 08:37 Family History Father Alcoholism Mother Arthritis Aunt Diabetes Social History Smoking Status: Current every day smoker tobacco type: cigarettes alcohol intake: former substance use type: does not use EXAM Physical Exam Const Vital Signs: 11/30/24 08:37 11/30/24 10:37 Temperature 97.2 F L Temperature Source Temporal Pulse Rate 97 80 Respiratory Rate 19 H 16 Blood Pressure 144/91 H 140/80 H Blood Pressure Mean 108 100 Pulse Ox 98 99 Oxygen Delivery Method Room Air MDM MDM MDM Narrative Medical decision making narrative: HISTORY OF PRESENT ILLNESS: Chief complaint: Constipation 39-year-old male history of type 1 diabetes, DKA presents with constipation. Notes he is on a bowel movement 1 week. He states he still passing gas. Further states he has had 3 days of lower abdominal pain. Focus of the left lower quadrant. States he saw urgent care prior to arrival and they were concerned about diverticulitis. [facility] secondary to not having imaging studies available. He states he has not had any vomiting or fever. Denies history abdominal surgeries. Denies any new urinary complaints. Denies melena or hematochezia. Notes his last bowel was 1 week ago. Typically is a bowel movement every other day. REVIEW OF SYSTEMS: Pertinent positives: Constipation Pertinent negatives: Vomiting, fever, chest pain PHYSICAL EXAM: Nursing triage notes reviewed, Vital signs reviewed Constitutional: please see [facility] HENT: MMM Eyes: Pupils equal round and reactive to light, Extraocular muscles intact Neck: No stridor, no JVD, full neck ROM Lungs: Clear to auscultation, No wheezing or rales. No increased work of breathing, no conversational dyspnea, no accessory muscle use, no nasal flaring. No respiratory distress noted Heart: Regular rate and rhythm, No murmurs, No rubs and No gallops, 2+ distal pulses (radial, femoral, posterior tibial) in all extremities Abdomen: Soft, diffuse abdominal tenderness, but no slight distention rigidity, rebound or guarding, no obvious peritoneal signs, no palpable pulsatile abdominal masses, no auscultated abdominal bruit : No CVAT Extremities: No edema Neuro: No new focal neurological deficits, cranial nerves II through XII intact, 5/5 strength in all present extremities. Intact sensation to light touch in all present extremities, 2+ reflexes bilateral patella tendons. Skin: No rash or lesions noted MEDICAL DECISION MAKING: Chief Complaint: please see HPI External records reviewed: No documented abdominal surgeries Factors affecting care: Type 1 diabetes Social determinants of health: none History obtained from others: none Consults: none [facility] Narrative: The patient was initially hemodynamically stable, afebrile and nontoxic- appearing. Abdominal exam overall benign with no peritoneal signs but slightly distended. I considered the following differential diagnosis: Constipation, bowel obstruction I initially treated patient 1 L normal saline, Zofran and Toradol. I obtained a CT scan of the abdomen with oral and IV contrast ALL IMAGES (IF OBTAINED) HAVE BEEN PERSONALLY REVIEWED AND INTERPRETED BY MYSELF. CBC without leukocytosis, severe anemia, no thrombocytopenia. Urinalysis shows no evidence of urinary inflammation suggestive of UTI BMP without evidence of significant electrolyte abnormalities, no anion gap, no acute kidney injury. No sign of metabolic acidosis to suggest DKA LFTs show no evidence of hepatobiliary pathology. Lipase is wnl indicating no pancreatic inflammation. CT scan abdomen pelvis with oral and IV contrast shows no evidence of obvious acute surgical pathology. The synthesis of the patient's history, physical exam, labs, and images suggest no acute life-limiting etiology. No sign of acute surgical process in the abdomen. He is having constipation. Will provide bowel regimen at home including increase fluid, fiber 10, MiraLAX Colace and senna The patient and/or family, caregivers express understanding. The patient and/or family, caregivers agrees with the plan. Shared decision making: I will have a discussion with the patient and or visitors regarding risk/benefits of further testing or admission. They will be made aware of of the risk/benefits inherent in this decision they will be given the opportunity to voice understanding. Total critical care time today provided was at least 0 minutes. This excludes separately billable procedures. Critical care time (if documented) is secondary to the patient having high probability of clinically significant/life threatening deterioration in the patient's condition which required my urgent intervention. Impression: 1. Acute abdominal pain 2. Constipation Dispo: Discharge home This note was generated with C2[employer] dictation software. It may contain incorrect words, spelling, and punctuation that were not noted in review of the chart prior to signing. Lab Data Labs: Laboratory Results - last 24 hr 11/30/24 11/30/24 08:57 09:12 WBC 7.6 RBC 5.11 Hgb 15.6 Hct 45.1 MCV 88.3 MCH 30.5 MCHC 34.6 RDW Std Deviation 38.5 RDW Coeff of Marco Antonio 12.0 Plt Count 284 MPV 9.8 Immature Gran % (Auto) 0.700 Neut % (Auto) 57.0 Lymph % (Auto) 28.9 Levy % (Auto) 7.2 Eos % (Auto) 5.7 H Baso % (Auto) 0.5 Absolute Neuts (auto) 4.3 Absolute Lymphs (auto) 2.20 Nucleated RBC % 0 Sodium 140 Potassium 4.5 Chloride 106 Carbon Dioxide 23.8 Anion Gap 10 BUN 13 Creatinine 0.86 Estim Creat Clear Calc 112.84 Est GFR (MDRD) Non-Af 114 BUN/Creatinine Ratio 14.8 Glucose 126 H Calcium 9.4 Total Bilirubin 0.32 AST 23 ALT 17 Alkaline Phosphatase 60 Total Protein 7.2 Albumin 4.2 Globulin 3.0 Albumin/Globulin Ratio 1.4 Lipase 25 Urine Color Yellow Urine Clarity Clear Urine pH 6.0 Ur Specific [place] 1.020 Urine Protein 15 H Urine Glucose (UA) Normal Urine Ketones Negative Urine Occult Blood 10 H Urine Nitrite Negative Urine Bilirubin Negative Urine Urobilinogen Normal Ur Leukocyte Esterase Negative Radiography Diagnostic Testing: Clinical Impression(s) from Imaging Studies Abdomen/Pelvis CT 11/30/24 10:35 IMPRESSION: 1. Small esophageal hiatal hernia. 2. Fecal retention in the colon consistent with constipation. 3. Umbilical hernia containing fat. 4. No obstructive uropathy. Reading Location[facility] Discharge Plan Triage Chief Complaint: Constipation ED Provider: Mateo Anderson Dx/Rx/DC Orders Prescriptions: No Action (DME) blood-glucose meter [True Metrix Glucose Meter] Misc See Rx Instructions .ROUTE .MEDSUPPLY Qty: 1 0RF Rx Instructions: As directed (DME) True Metrix Glucose Test Strip Strip See Rx Instructions .ROUTE .MEDSUPPLY Qty: 150 12RF Rx Instructions: 4 times daily (DME) pen needle, diabetic [1st Tier Unifine Pentips Plus] 31 gauge x 5/16 needle See Rx Instructions .ROUTE .MEDSUPPLY Qty: 360 1RF Rx Instructions: 4 times daily (DME) lancets [1st Tier Unilet ComforTouch] 30 gauge misc See Rx Instructions .ROUTE .MEDSUPPLY Qty: 360 1RF Rx Instructions: 4x/day (DME) Dexcom G7 Sensor Device See Rx Instructions .ROUTE Qty: 1 0RF Rx Instructions: As directed insulin aspart U-100 [Novolog U-100 Insulin aspart] 100 unit/mL solution 100 unit continuous subcutaneous infusion .continuous Qty: 90 1RF rosuvastatin 5 mg tablet 5 mg PO DAILY Qty: 90 3RF diclofenac sodium 1 % gel 2.25 inch topical TID PRN PRN (Reason: pain) Qty: 100 0RF Primary Care Provider: Jordin Cuevas Referrals: Jordin Cuevas MD [Primary Care Provider] - Print Language: Hebrew
[2024-11-30 09:17] LABS: Absolute Neutrophil Count 4.3 X10^3/uL (2.0-7.7); Basophil# 0.04 X10^3/uL; Basophil% 0.5 % (0-1); Eosinophil# 0.43 X10^3/uL; Eosinophils% 5.7 % (0-5); Hematocrit 45.1 % (40-54); Hemoglobin 15.6 g/dL (13.0-16.5); Lymphocyte % 28.9 % (19-41); Mean Corp Hgb Conc 34.6 g/dL (32-36); Mean Corpuscular Hgb 30.5 pg (27.0-32.0); Mean Corpuscular Volume 88.3 fL (80-94); Mean Platelet Vol. 9.8 fl (6.2-12.0); Monocyte# 0.55 X10^3/uL; Monocyte% 7.2 % (0-10); NRBC Flagged by Analyzer 0 % (0-5); Neutrophil # 4.33 X10^3/uL (2.7-7.7); Platelet Count 284 K/mm3 (150-450); RBC Distribution Width SD 38.5 fl (35.1-43.9); Red Blood Count 5.11 M/mm3 (4.6-6.2); White Blood Count 7.6 K/mm3 (4.4-11.0)
[2024-11-30 09:25] LABS: Color, Urine Yellow (Yellow); Glucose, Dipstick Normal (Normal); Ketone-Dipstick Negative (Negative); Leukocyte Esterase-Dipstick Negative /ul (Negative); Nitrite-Dipstick Negative (Negative); Occult Blood-Urine 10 /ul (Negative); Protein-Dipstick 15 mg/dl (Negative); Urine Bilirubin Dipstick Negative (Negative); Urine Clarity Clear (Clear); Urine Urobilinogen Normal (Normal)
[2024-11-30 09:34] LABS: ALB/GLOB Ratio 1.4 RATIO (0.9-2.4); AST(SGOT) 23 U/L (<=37); Alanine Aminotransfer ALT/SGPT 17 U/L (<=46); Albumin, Serum 4.2 g/dL (3.5-5.0); Alkaline Phosphatase 60 U/L (40-129); Anion Gap 10 (5-15); BUN 13 mg/dL (4-19); BUN/Creat Ratio 14.8 RATIO (10-20); Calcium,Total 9.4 mg/dL (7.6-11.0); Carbon Dioxide 23.8 mmol/L (21.0-32.0); Chloride 106 mmol/L (98-108); Creatinine, Serum 0.86 mg/dL (0.70-1.20); EST Glomerular Filtration Rate 114 (>60); Estimated Creatinine Clearance 112.84 ml/min (50-250); Glucose 126 mg/dL (70-99); Lipase 25 U/L (13-75); Potassium 4.5 mmol/L (3.3-5.1); Protein, Total 7.2 g/dL (5.9-8.4); Sodium Level 140 mmol/L (133-145); Total Bilirubin 0.32 mg/dL (0.00-1.30)
[2024-11-30] MEDS: Ketorolac 15 MG/ML Vial IV (09:38)
[2024-11-30] MEDS: Ondansetron 4 MG/2 ML Vial IV (09:38)
[2024-11-30] MEDS: 0.9% Normal Saline (1000mL) 1,000 ML 999 ML IV (09:38)
--- NOTE | 2024-11-30 10:35 | CT_ITS ---
EXAM: CT Abdomen and Pelvis With Intravenous Contrast CLINICAL INDICATION: LEFT LOWER QUADRANT ABDOMINAL PAIN, CONSTIPATION TECHNIQUE: Axial computed tomography images of the abdomen and pelvis with intravenous contrast. This CT exam was performed using one or more of the following dose reduction techniques: automated exposure control, adjustment of the mA and/or kV according to patient size, and/or use of iterative reconstruction technique. COMPARISON: No relevant prior studies available. FINDINGS: LUNG BASES: Unremarkable. No mass. No consolidation. MEDIASTINUM: Small esophageal hiatal hernia. ABDOMEN: LIVER: Fatty infiltration of the liver. GALLBLADDER AND BILE DUCTS: Unremarkable. No calcified stones. No ductal dilation. PANCREAS: Unremarkable. No mass. No ductal dilation. SPLEEN: Unremarkable. No splenomegaly. ADRENALS: Unremarkable. No mass. KIDNEYS AND URETERS: Unremarkable. No stones within either kidney. No hydronephrosis. STOMACH AND BOWEL: Fecal retention in the colon consistent with constipation. No obstruction. No mucosal thickening. PELVIS: APPENDIX: No findings to suggest acute appendicitis. BLADDER: Unremarkable. No mass. REPRODUCTIVE: Unremarkable as visualized. ABDOMEN and PELVIS: INTRAPERITONEAL SPACE: Unremarkable. No free air. No significant fluid collection. BONES/JOINTS: No acute fracture. No dislocation. SOFT TISSUES: Umbilical hernia containing fat. VASCULATURE: Unremarkable. No abdominal aortic aneurysm. LYMPH NODES: Unremarkable. No enlarged lymph nodes. CT/Abdomen/Pelvis WITH Contrast IMPRESSION: 1. Small esophageal hiatal hernia. 2. Fecal retention in the colon consistent with constipation. 3. Umbilical hernia containing fat. 4. No obstructive uropathy. Reading [facility] [place]
[2024-11-30 10:37] VITALS: BP 140/80; PULSE 80; RESP 16; O2SAT 99
[2024-11-30 11:36] VITALS: BP 140/80; PULSE 80; RESP 16; TEMP 36.6; O2SAT 99
== END 2024-11-30 11:38 | disposition home or self-care (01) ==
PROVIDERS: Emergency Provider Emergency Medicine; PCP Family Medicine; Visit Provider Emergency Medicine
DX: K59.00 Constipation, unspecified (principal); F17.210 Nicotine dependence, cigarettes, uncomplicated
CPT/HCPCS: 74177; 80053; 81002; 83690; 85025; 96361; 96374; 96375; 99282; Q9967; A4216; J2405